=== PATIENT | female | born 1990 | race African-American/Black ===

== ENCOUNTER 2016-05-01 10:21 | Emergency (ER) | payer MEDICAID ==
[~2016-05-01] VITALS: Ht 170.2 cm; Wt 100.0 kg
[~2016-05-01 10:21] MED LIST: DICL50TA3 PO
[2016-05-01 10:23] VITALS: BP 123/81; PULSE 82; RESP 15; TEMP 98.1; O2SAT 97
--- NOTE | 2016-05-01 10:43 | PD ---
HPI Chief Complaint: Abdominal Pain Time Seen by Provider: 10:42 Travel History International Travel<30 days: No Contact w/Intl Traveler<30days: No Traveled to known affect area: No History of Present Illness HPI 25-year-old female presents to the emergency department for evaluation of lower abdominal pain and pelvic pain. The patient states that 2 days ago she stood up and stretched and felt some lower abdominal pain and thought she had pulled a muscle. States over the past 2 days she's had worsening lower abdominal pain and now pelvic pain. States that the pain is aggravated with movement, standing up straight and lying flat. Denies any alleviating factors. She states that this morning when she woke up about 4 hours ago she had a fever of 102.5F, she took some Tylenol for her fever. States that she has had nausea but no vomiting. Denies any diarrhea, constipation, vaginal discharge, burning with urination, painful urination, hematuria. Denies , last menstrual period was 04/09/16 and she has the Mirena IUD. Prior abdominal surgeries include appendectomy and cholecystectomy. Patient is sexually active with only one partner, denies any history of STI's. No other complaints. PFSH Past Medical History Anxiety: Yes Depression: Yes Cancer: No Cardiovascular Problems: No Diabetes: No Diminished Hearing: No Endocrine: No Gastrointestinal Disorders: Yes GERD: Yes Genitourinary: No Headaches: Yes Hypertension: No Immune Disorder: No Implanted Vascular Access Dvce: No Musculoskeletal: No Psychiatric: Yes Reproductive: Yes Immunizations Current: Yes Migraines: Yes Sickle Cell Disease: No Ulcer: Yes Influenza Vaccination: Yes ?: Not LMP: 09 APR 2016 : 4 Para: 1 Miscarriage: 2 : 1 Past Surgical History Abdominal Surgery: Yes (APPENDECTOMY) AICD: No Appendectomy: Yes Arteriovenous Shunt: No Cholecystectomy: Yes Insulin Pump: No Joint Replacement: No Pacemaker: No Other Surgery: Yes Social History Alcohol Use: Yes (OCC) Tobacco Use: No Substance Use: No Allergies-Medications (Allergen,Severity, Reaction): Coded Allergies: No Known Allergies (Unverified , 03/14/16) Reported Meds & Prescriptions Reported Meds & Active Scripts Active Zofran (Ondansetron HCl) 4 Mg Tab 4 Mg PO Q6HR PRN Keflex (Cephalexin) 500 Mg Cap 500 Mg PO Q12H 7 Days Tramadol (Tramadol HCl) 50 Mg Tab 50 Mg PO Q6H PRN Diclofenac Sodium DR (Diclofenac Sodium) 50 Mg Tabdr 50 Mg PO BID Review of Systems Except as stated in HPI: all other systems reviewed are Neg Physical Exam Narrative GENERAL: Well-nourished and well-developed female patient in moderate amount of pain. SKIN: Warm and dry. HEAD: Normocephalic and atraumatic. EYES: No injection, drainage, or hyphema noted. PERRLA. EOMI. ENT: No nasal drainage noted. Oropharynx is clear. NECK: Supple and the trachea is midline. CARDIOVASCULAR: Regular rate and rhythm. RESPIRATORY: Breath sounds are equal bilaterally with no accessory muscle use, wheezing, rhonchi, or crackles. GASTROINTESTINAL: Tenderness to palpation of suprapubic and left lower pelvic region with guarding. Abdomen is soft and nondistended. GENITOURINARY: Normal external genitalia without lesions or erythema. Vaginal vault with yellow discharge. Cervical os was closed, IUD string is visualized. No cervical motion tenderness. Uterus nontender and nonenlarged. Tenderness to palpation of bilateral adnexa. Performed in the presence of Naya RN. MUSCULOSKELETAL: No obvious deformities, swelling, cyanosis, or ecchymosis is present throughout the upper and lower extremities. Patient has full range of motion without any signs of neurovascular compromise. BACK: Negative CVA tenderness. NEUROLOGICAL: Awake, alert, and oriented. Normal speech and gait. Cranial nerves are grossly intact. Data Data Last Documented VS Vital Signs Date Time Temp Pulse Resp B/P Pulse Ox O2 Delivery O2 Flow Rate FiO2 05/01/16 15:05 87 18 107/62 98 05/01/16 10:23 98.1 Orders Complete Blood Count With Diff (05/01/16 10:40) Comprehensive Metabolic Panel (05/01/16 10:40) Gc And Chlamydia Pcr (05/01/16 10:40) Wet Prep Profile (05/01/16 10:40) Urinalysis - C+S If Indicated (05/01/16 10:40) Iv Access Insert/Monitor (05/01/16 10:40) Ecg Monitoring (05/01/16 10:40) Sodium Chloride 0.9% Flush (Ns Flush) (05/01/16 10:45) Ed Urine Pregnancytest Poc (05/01/16 10:40) Morphine Inj (Morphine Inj) (05/01/16 10:45) Ondansetron Inj (Zofran Inj) (05/01/16 10:45) Lipase (05/01/16 10:40) Urine Culture (05/01/16 10:50) Hydromorphone Pf Inj (Dilaudid Pf Inj) (05/01/16 11:45) Us Pelvis Comp W Doppler (05/01/16 11:43) Ceftriaxone Inj (Rocephin Inj) (05/01/16 12:45) Ondansetron Inj (Zofran Inj) (05/01/16 13:45) Labs Laboratory Tests Test 05/01/16 05/01/16 10:50 11:40 White Blood Count 8.6 TH/MM3 Red Blood Count 5.01 MIL/MM3 Hemoglobin 13.0 GM/DL Hematocrit 39.8 % Mean Corpuscular Volume 79.4 FL Mean Corpuscular Hemoglobin 26.0 PG Mean Corpuscular Hemoglobin 32.7 % Concent Red Cell Distribution Width 14.8 % Platelet Count 362 TH/MM3 Mean Platelet Volume 8.4 FL Neutrophils (%) (Auto) 55.9 % Lymphocytes (%) (Auto) 38.1 % Monocytes (%) (Auto) 4.6 % Eosinophils (%) (Auto) 0.9 % Basophils (%) (Auto) 0.5 % Neutrophils # (Auto) 4.8 TH/MM3 Lymphocytes # (Auto) 3.3 TH/MM3 Monocytes # (Auto) 0.4 TH/MM3 Eosinophils # (Auto) 0.1 TH/MM3 Basophils # (Auto) 0.0 TH/MM3 CBC Comment DIFF FINAL Differential Comment Urine Color YELLOW Urine Turbidity HAZY Urine pH 5.5 Urine Specific [place] 1.031 Urine Protein 30 mg/dL Urine Glucose (UA) NEG mg/dL Urine Ketones NEG mg/dL Urine Occult Blood SMALL Urine Nitrite NEG Urine Bilirubin NEG Urine Urobilinogen 2.0 MG/DL Urine Leukocyte Esterase LARGE Urine RBC 14 /hpf Urine WBC 80 /hpf Urine Squamous Epithelial 10 /hpf Cells Urine Bacteria RARE /hpf Urine Mucus MANY /lpf Microscopic Urinalysis Comment CULTURE INDICATED Sodium Level 138 MEQ/L Potassium Level 4.2 MEQ/L Chloride Level 106 MEQ/L Carbon Dioxide Level 24.7 MEQ/L Anion Gap 7 MEQ/L Blood Urea Nitrogen 9 MG/DL Creatinine 0.91 MG/DL Estimat Glomerular Filtration 91 ML/MIN Rate Random Glucose 165 MG/DL Calcium Level 9.0 MG/DL Total Bilirubin 0.3 MG/DL Aspartate Amino Transf 13 U/L (AST/SGOT) Alanine Aminotransferase 26 U/L (ALT/SGPT) Alkaline Phosphatase 77 U/L Total Protein 7.8 GM/DL Albumin 3.7 GM/DL Lipase 110 U/L Clue Cells (Wet Prep) NONE SEEN Vaginal Trichomonas (Wet Prep) NONE SEEN Vaginal Yeast (Wet Prep) NONE SEEN Chlamydia trachomatis DNA NOT DETECTED (PCR) Neisseria gonorrhoeae DNA NOT DETECTED (PCR) MDM Medical Decision Making Medical Screen Exam Complete: Yes Emergency Medical Condition: Yes Differential Diagnosis PID versus UTI versus cervicitis versus torsion versus IUD misplacement Narrative Course 25-year-old female presents to the emergency department for evaluation of lower abdominal and pelvic pain for 2 days with fever today. Patient is afebrile here in the emergency department. Vital signs are stable. She is in a moderate amount of pain. She has some significant pelvic tenderness to palpation. Pelvic examination reveals yellow discharge and bilateral adnexal tenderness. IV access is obtained, labs been drawn and sent. The patient is given morphine 4 mg IV and Zofran 4 mg IV. ED urine test is negative. CBC is unremarkable. CMP is unremarkable. Urinalysis shows 30 protein, small occult blood, large leukocyte esterase, 14 red blood cells, 80 white blood cells, rare bacteria and many mucus. Wet prep is unremarkable. GC and chlamydia is pending. Ultrasound shows small 2 cm complex cystic structure in the left ovary likely a benign physiologic finding. The patient's urinalysis is suspicious for a UTI. The patient has been monogamous with her and does not have any cervical motion tenderness and therefore I don't suspect any gonorrhea or chlamydia. If either of these results comes back positive she will be called with results. She is given Rocephin 1 mg IV for UTI. She'll be discharged with Keflex, antiemetics and pain medication. The patient is given strict return precautions for worsening of symptoms. Patient verbalizes understanding and agreement with treatment plan. I discussed the case with my attending physician Dr. Garcia who is aware of the patients history, physical examination findings, and treatment plan. Diagnosis Primary Impression: Urinary tract infection Qualified Code: N39.0 - Urinary tract infection with hematuria, site unspecified Referrals: Primary Care Physician Patient Instructions: General Instructions, Urinary Tract Infection in Women ( ED) Departure Forms: Tests/Procedures, Work Release Enter return to work date: May 04, 2016 Additional Instructions: Take medications as prescribed. Do not take Tramadol with alcohol or while driving. Follow-up with your Primary Care Physician. Return to the ED for any acute worsening of symptoms. Med/Other Pt SpecificInfo: Prescription(s) given Scripts Ondansetron (Zofran)4 Mg Tab4 Mg PO Q6HR PRN (NAUSEA OR VOMITING) #8 TAB Ref 0 Prov:Brigitte Garcia MD 05/01/16 Cephalexin (Keflex)500 Mg [id number] Mg PO Q12H 7 Days Ref 0 Prov:Brigitte Garcia MD 05/01/16 Tramadol 50 Mg Tab50 Mg PO Q6H PRN (PAIN GREATER THAN 6) #12 TAB Ref 0 Prov:Brigitte Garcia MD 05/01/16 Disposition: 01 DISCHARGE HOME Condition: Stable Beth Willson May 01, 2016 10:42
[2016-05-01] MEDS ORDERED: ONDANSETRON HCL 4 MG/2 ML VIAL IV PUSH ONE ×2 (10:45→13:45)
[2016-05-01] MEDS ORDERED: SODIUM CHLORIDE 0.9% FLUSH 5 ML FLUSH IVF PRN (10:45)
[2016-05-01] MEDS ORDERED: ONDANSETRON HCL 4 MG/2 ML VIAL IVP ONE (10:45)
[2016-05-01] MEDS ORDERED: MORPHINE SULFATE 4 MG/ML INJ IV PUSH ONE (10:45)
[2016-05-01 11:11] LABS: AUTOMATED NEUTROPHIL # 4.8 TH/MM3 (1.8-7.7); BASOPHIL % 0.5 % (0.0-2.0); EOSINOPHIL # 0.1 TH/MM3 (0-0.4); EOSINOPHIL % 0.9 % (0.0-4.0); HEMATOCRIT 39.8 % (35.0-46.0); HEMO FLAGS DIFF FINAL; LYMPH % 38.1 % (9.0-44.0); LYMPHOCYTE # 3.3 TH/MM3 (1.0-4.8); MEAN CELL VOLUME 79.4 FL (80.0-100.0); MEAN CORPUSCULAR HGB CONC 32.7 % (32.0-36.0); MONO % 4.6 % (0.0-8.0); NEUT % 55.9 % (16.0-70.0); PLATELET COUNT 362 TH/MM3 (150-450); RED BLOOD COUNT 5.01 MIL/MM3 (4.00-5.30); RED CELL DISTRIBUTION WIDTH 14.8 % (11.6-17.2); WHITE BLOOD COUNT 8.6 TH/MM3 (4.0-11.0)
[2016-05-01 11:12] LABS: BACTERIA, URINE RARE /hpf; BLOOD, URINE SMALL (NEG); COMMENT (UR) CULTURE INDICATED; CULTURE IF INDICATED CULTURE INDICATED; GLUCOSE,URINE NEG (NEG); KETONE, URINE NEG (NEG); MUCUS URINE MANY /lpf (OCC); NITRITE,URINE NEG (NEG); PH, URINE 5.5 (5.0-8.5); SQUAMOUS EPITHELIAL CELL URINE 10 /hpf (0-5); URINE COLOR YELLOW (YELLW/STRAW)
[2016-05-01 11:20] LABS: ALKALINE PHOSPHATASE 77 U/L (45-117); TOTAL BILIRUBIN ADULT 0.3 MG/DL (0.2-1.0)
[2016-05-01 11:22] LABS: ALT (GPT) 26 U/L (10-53); ANION GAP 7 MEQ/L (5-15); BICARBONATE 24.7 MEQ/L (21.0-32.0); BLOOD UREA NITROGEN 9 MG/DL (7-18); CHLORIDE 106 MEQ/L (98-107); GLOMERULAR FILTRATION RATE 91 ML/MIN (>89); SODIUM (NA) 138 MEQ/L (136-145)
[2016-05-01 11:23] LABS: AST (GOT) 13 U/L (15-37); POTASSIUM 4.2 MEQ/L (3.5-5.1)
[2016-05-01 11:45] VITALS: BP 130/75; PULSE 79; RESP 18; O2SAT 98
[2016-05-01] MEDS ORDERED: HYDROmorphone HCL PF 1 MG/ML VIAL IV PUSH ONE (11:45)
[2016-05-01] MEDS ORDERED: cefTRIAXone INJ 1,000 MG in SODIUM CHLORIDE 0.9% INJ 100 ML IV ONE (12:45)
[2016-05-01 13:36] LABS: CHLAMYDIA PCR NOT DETECTED (NOT DETECT); NEISSERIA PCR NOT DETECTED (NOT DETECT)
[2016-05-01] MEDS ORDERED: TRAM50TA PO (13:56)
[2016-05-01] MEDS ORDERED: CEPH-460 PO (13:57)
[2016-05-01] MEDS ORDERED: ZOFR4TAB PO (13:57)
--- NOTE | 2016-05-01 14:33 | RADRPT ---
EXAM DATE/TIME: 05/01/2016 12:07 [facility] COMPARISON: No previous studies available for comparison. INDICATIONS : Pelvic pain. MEDICAL HISTORY : Gastroesophageal reflux disease. SURGICAL HISTORY : Appendectomy. Cholecystectomy. ENCOUNTER: Initial ACUITY: 2 days PAIN SCORE: 9/10 LOCATION: Bilateral pelvis MEASUREMENTS: UTERUS: 10.5 x 4.3 x 7.5 cm ENDOMETRIAL STRIPE: 5 mm RIGHT OVARY: 3.8 x 1.8 x 2.3 cm LEFT OVARY: 3.9 x 1.8 x 3.5 cm FINDINGS: UTERUS: Intrauterine device present. Otherwise focally unremarkable. RIGHT OVARY: Ovary contains no mass or significant cystic lesion. LEFT OVARY: Slightly less than 2 cm hypoechoic/cystic mass which may be a physiologic finding. Ectopic should be considered and correlated with laboratory evaluation. MISCELLANEOUS: No free fluid. CONCLUSION: Small complex cystic structure in the left ovary likely a benign physiologic finding, however ectopic should also be considered in this patient with intrauterine device. No evidence of torsion or abscess Chester Pressley MD on May 01, 2016 at 14:29 Board Certified Radiologist. This report was verified electronically.
[2016-05-01 15:05] VITALS: BP 107/62
--- NOTE | 2016-05-01 16:03 | PD ---
Data Data Last Documented VS Vital Signs Date Time Temp Pulse Resp B/P Pulse Ox O2 Delivery O2 Flow Rate FiO2 05/01/16 15:05 87 18 107/62 98 05/01/16 10:23 98.1 Orders Complete Blood Count With Diff (05/01/16 10:40) Comprehensive Metabolic Panel (05/01/16 10:40) Gc And Chlamydia Pcr (05/01/16 10:40) Wet Prep Profile (05/01/16 10:40) Urinalysis - C+S If Indicated (05/01/16 10:40) Iv Access Insert/Monitor (05/01/16 10:40) Ecg Monitoring (05/01/16 10:40) Sodium Chloride 0.9% Flush (Ns Flush) (05/01/16 10:45) Ed Urine Pregnancytest Poc (05/01/16 10:40) Morphine Inj (Morphine Inj) (05/01/16 10:45) Ondansetron Inj (Zofran Inj) (05/01/16 10:45) Lipase (05/01/16 10:40) Urine Culture (05/01/16 10:50) Hydromorphone Pf Inj (Dilaudid Pf Inj) (05/01/16 11:45) Us Pelvis Comp W Doppler (05/01/16 11:43) Ceftriaxone Inj (Rocephin Inj) (05/01/16 12:45) Ondansetron Inj (Zofran Inj) (05/01/16 13:45) Labs Laboratory Tests Test 05/01/16 05/01/16 10:50 11:40 White Blood Count 8.6 TH/MM3 Red Blood Count 5.01 MIL/MM3 Hemoglobin 13.0 GM/DL Hematocrit 39.8 % Mean Corpuscular Volume 79.4 FL Mean Corpuscular Hemoglobin 26.0 PG Mean Corpuscular Hemoglobin 32.7 % Concent Red Cell Distribution Width 14.8 % Platelet Count 362 TH/MM3 Mean Platelet Volume 8.4 FL Neutrophils (%) (Auto) 55.9 % Lymphocytes (%) (Auto) 38.1 % Monocytes (%) (Auto) 4.6 % Eosinophils (%) (Auto) 0.9 % Basophils (%) (Auto) 0.5 % Neutrophils # (Auto) 4.8 TH/MM3 Lymphocytes # (Auto) 3.3 TH/MM3 Monocytes # (Auto) 0.4 TH/MM3 Eosinophils # (Auto) 0.1 TH/MM3 Basophils # (Auto) 0.0 TH/MM3 CBC Comment DIFF FINAL Differential Comment Urine Color YELLOW Urine Turbidity HAZY Urine pH 5.5 Urine Specific [place] 1.031 Urine Protein 30 mg/dL Urine Glucose (UA) NEG mg/dL Urine Ketones NEG mg/dL Urine Occult Blood SMALL Urine Nitrite NEG Urine Bilirubin NEG Urine Urobilinogen 2.0 MG/DL Urine Leukocyte Esterase LARGE Urine RBC 14 /hpf Urine WBC 80 /hpf Urine Squamous Epithelial 10 /hpf Cells Urine Bacteria RARE /hpf Urine Mucus MANY /lpf Microscopic Urinalysis Comment CULTURE INDICATED Sodium Level 138 MEQ/L Potassium Level 4.2 MEQ/L Chloride Level 106 MEQ/L Carbon Dioxide Level 24.7 MEQ/L Anion Gap 7 MEQ/L Blood Urea Nitrogen 9 MG/DL Creatinine 0.91 MG/DL Estimat Glomerular Filtration 91 ML/MIN Rate Random Glucose 165 MG/DL Calcium Level 9.0 MG/DL Total Bilirubin 0.3 MG/DL Aspartate Amino Transf 13 U/L (AST/SGOT) Alanine Aminotransferase 26 U/L (ALT/SGPT) Alkaline Phosphatase 77 U/L Total Protein 7.8 GM/DL Albumin 3.7 GM/DL Lipase 110 U/L Clue Cells (Wet Prep) NONE SEEN Vaginal Trichomonas (Wet Prep) NONE SEEN Vaginal Yeast (Wet Prep) NONE SEEN Chlamydia trachomatis DNA NOT DETECTED (PCR) Neisseria gonorrhoeae DNA NOT DETECTED (PCR) MDM Supervised Visit with GILES: Yes Narrative Course The history, exam, and medical decision-making in the associated midlevel provider note were completed with my assistance. I reviewed and agree with the findings presented. I attest that I had a [id number] encounter with the patient on the same day, and personally performed and documented my assessment and findings in the medical record. *My assessment and Findings: This is a 25-year-old female who presents to the emergency department with lower abdominal pain, fevers and vomiting. Patient has evidence of a urinary tract infection. She's had an appendectomy in the past. Pelvic ultrasound demonstrates a 2 cm cyst but no evidence of ovarian torsion or tubo-ovarian abscess. I think the patient's symptoms are due to cystitis. Pt. will be discharged with antibiotics. Diagnosis Ruled Out: Urinary tract infection Referrals: Primary Care Physician Patient Instructions: General Instructions, Urinary Tract Infection in Women ( ED) Departure Forms: Work Release, Enter return to work date: Tests/Procedures Additional Instruction: Take medications as prescribed. Do not take Tramadol with alcohol or while driving. Follow-up with your Primary Care Physician. Return to the ED for any acute worsening of symptoms. Scripts Ondansetron (Zofran)4 Mg Tab4 Mg PO Q6HR PRN (NAUSEA OR VOMITING) #8 TAB Ref 0 Prov:Brigitte Garcia MD 05/01/16 Cephalexin (Keflex)500 Mg [id number] Mg PO Q12H 7 Days Ref 0 Prov:Brigitte Garcia MD 05/01/16 Tramadol 50 Mg Tab50 Mg PO Q6H PRN (PAIN GREATER THAN 6) #12 TAB Ref 0 Prov:Brigitte Garcia MD 05/01/16 Disposition: 01 DISCHARGE HOME Condition: Stable Brigitte Garcia MD May 01, 2016 16:03
== END 2016-05-01 15:20 | disposition home or self-care (01) ==
LOC: NEPE 10:21 → NEDAMB 15:20
DX: N39.0 Urinary tract infection, site not specified (principal); B96.89 Other specified bacterial agents as the cause of diseases classified elsewhere; R31.9 Hematuria, unspecified; K21.9 Gastro-esophageal reflux disease without esophagitis
CPT/HCPCS: 76856; 80053; 81001; 83690; 84703; 85025; 87086; 87210; 87491; 87591; 93975; 96374; 96375; 96376; 99284; J0696; J1170; J2270; J2405

== ENCOUNTER 2016-05-05 17:30 | Emergency (ER) | payer MEDICAID ==
[~2016-05-05] VITALS: Ht 170.2 cm; Wt 109.0 kg
[~2016-05-05 17:30] MED LIST changes: +CEPH-460 PO; +TRAM50TA PO; +ZOFR4TAB PO
[2016-05-05 17:33] VITALS: BP 150/83; PULSE 79; RESP 12; TEMP 97.6; O2SAT 100
[2016-05-06] MEDS ORDERED: IBUP-232 PO (04:26)
== END 2016-05-05 20:37 | disposition left against medical advice (07) ==
LOC: NED 17:30
DX: R10.30 Lower abdominal pain, unspecified (principal)
CPT/HCPCS: 99281

== ENCOUNTER 2016-05-05 21:17 | Emergency (ER) | payer MEDICAID ==
[~2016-05-05] VITALS: Ht 170.2 cm; Wt 110.0 kg
[2016-05-05 21:19] VITALS: BP 112/80; PULSE 98; RESP 20; TEMP 97.8; O2SAT 96
[2016-05-06 01:34] LABS: AUTOMATED NEUTROPHIL # 5.2 TH/MM3 (1.8-7.7); BASOPHIL % 0.3 % (0.0-2.0); EOSINOPHIL # 0.1 TH/MM3 (0-0.4); EOSINOPHIL % 0.9 % (0.0-4.0); HEMATOCRIT 39.7 % (35.0-46.0); HEMO FLAGS DIFF FINAL; LYMPH % 38.6 % (9.0-44.0); LYMPHOCYTE # 3.7 TH/MM3 (1.0-4.8); MEAN CELL VOLUME 79.3 FL (80.0-100.0); MEAN CORPUSCULAR HGB CONC 32.7 % (32.0-36.0); NEUT % 54.2 % (16.0-70.0); PLATELET COUNT 380 TH/MM3 (150-450); RED BLOOD COUNT 5.01 MIL/MM3 (4.00-5.30); RED CELL DISTRIBUTION WIDTH 14.9 % (11.6-17.2); WHITE BLOOD COUNT 9.6 TH/MM3 (4.0-11.0)
[2016-05-06 02:10] LABS: BLOOD, URINE NEG (NEG); COMMENT (UR) CULT NOT INDICATED; CULTURE IF INDICATED CULT NOT INDICATED; GLUCOSE,URINE NEG (NEG); HYALINE CAST, URINE 5 /lpf (RARE); KETONE, URINE NEG (NEG); MUCUS URINE MANY /lpf (OCC); NITRITE,URINE NEG (NEG); PH, URINE 5.5 (5.0-8.5); SQUAMOUS EPITHELIAL CELL URINE 17 /hpf (0-5); URINE COLOR YELLOW (YELLW/STRAW)
[2016-05-06 02:12] LABS: ALT (GPT) 26 U/L (10-53); ANION GAP 7 MEQ/L (5-15); AST (GOT) 13 U/L (15-37); BICARBONATE 26.5 MEQ/L (21.0-32.0); BLOOD UREA NITROGEN 9 MG/DL (7-18); CHLORIDE 106 MEQ/L (98-107); GLOMERULAR FILTRATION RATE 101 ML/MIN (>89); SODIUM (NA) 139 MEQ/L (136-145)
[2016-05-06 02:16] LABS: ALKALINE PHOSPHATASE 78 U/L (45-117); BETA HCG QUANT LESS THAN 1 MIU/ML (0-5); TOTAL BILIRUBIN ADULT 0.4 MG/DL (0.2-1.0)
[2016-05-06] MEDS ORDERED: ONDANSETRON HCL 4 MG/2 ML VIAL IV PUSH ONE (02:30)
[2016-05-06] MEDS ORDERED: KETOROLAC TROMETHAMINE 30 MG/ML (IVP) VIAL IV PUSH ONE (02:30)
--- NOTE | 2016-05-06 03:21 | RADRPT ---
EXAM DATE/TIME: 05/06/2016 03:05 [facility] COMPARISON: No previous studies available for comparison. INDICATIONS : Lower abdominal pain that radiates to right flank ORAL CONTRAST: No oral contrast ingested. RADIATION DOSE: 13.32 CTDIvol (mGy) MEDICAL HISTORY : None SURGICAL HISTORY : Cholecystectomy. Appendectomy. ENCOUNTER: Initial ACUITY: 1 day PAIN SCALE: 9/10 LOCATION: Right flank TECHNIQUE: Volumetric scanning of the abdomen and pelvis was performed. Using automated exposure control and ad justment of the mA and/or kV according to patient size, radiation dose was kept as low as reasonably achievable to obtain optimal diagnostic quality images. FINDINGS: LOWER LUNGS: The visualized lower lungs are clear. LIVER: Homogeneous density without lesion. There is no dilation of the biliary tree. Cholecystectomy clips. SPLEEN: Normal size without lesion. PANCREAS: Within normal limits. KIDNEYS: Normal in size and shape. There is no mass, stone, or hydronephrosis. ADRENAL GLANDS: Within normal limits. VASCULAR: There is no aortic aneurysm. BOWEL/MESENTERY: The stomach, small bowel, and colon demonstrate no acute abnormality. There is no free intraperitone al air or fluid. Surgical clips from previous appendectomy. ABDOMINAL WALL: Within normal limits. RETROPERITONEUM: There is no lymphadenopathy. BLADDER: No wall thickening or mass. REPRODUCTIVE: Within normal limits. IUD. INGUINAL: There is no lymphadenopathy or hernia. MUSCULOSKELETAL: Within normal limits for patient age. CONCLUSION: 1. No acute inflammatory process. 2. No renal calculi or hydronephrosis. 3. IUD. Andrea Segura MD on May 06, 2016 at 3:18 Board Certified Radiologist. This report was verified electronically.
--- NOTE | 2016-05-06 03:25 | PD ---
HPI Chief Complaint: Abdominal Pain Time Seen by Provider: 02:21 Travel History International Travel<30 days: No Contact w/Intl Traveler<30days: No Traveled to known affect area: No History of Present Illness HPI 25yo F with PSH of appendectomy, cholecystectomy presents to the ED with c/o persistent lower abdominal pain and dysuria for 1 week. States pain is located in suprapubic region and radiates to right flank. +Chills. +Nausea. Denies any fever, chest pain, sob, vaginal discharge or bleeding, weakness or numbness. Pt was seen on 05/04/16 and discharged with keflex, tramadol, zofran and impression of UTI. Urine culture showed 50,000-100,000 mixed gram positive raza probably contamination. PFSH Past Medical History Anxiety: Yes Depression: Yes Cancer: No Cardiovascular Problems: No Diabetes: No Diminished Hearing: No Endocrine: No Gastrointestinal Disorders: Yes GERD: Yes Genitourinary: No Headaches: Yes Hypertension: No Immune Disorder: No Implanted Vascular Access Dvce: No Musculoskeletal: No Psychiatric: Yes Reproductive: Yes Immunizations Current: Yes Migraines: Yes Sickle Cell Disease: No Ulcer: Yes ?: Not LMP: 04/09/16 : 4 Para: 1 Miscarriage: 2 : 1 Past Surgical History Abdominal Surgery: Yes (APPENDECTOMY) AICD: No Appendectomy: Yes Arteriovenous Shunt: No Cholecystectomy: Yes Insulin Pump: No Joint Replacement: No Pacemaker: No Other Surgery: Yes Social History Alcohol Use: Yes (OCC) Tobacco Use: No Substance Use: No Allergies-Medications (Allergen,Severity, Reaction): Coded Allergies: No Known Allergies (Unverified , 05/05/16) Reported Meds & Prescriptions Reported Meds & Active Scripts Active Zofran (Ondansetron HCl) 4 Mg Tab 4 Mg PO Q6HR PRN Keflex (Cephalexin) 500 Mg Cap 500 Mg PO Q12H 7 Days Tramadol (Tramadol HCl) 50 Mg Tab 50 Mg PO Q6H PRN Diclofenac Sodium DR (Diclofenac Sodium) 50 Mg Tabdr 50 Mg PO BID Review of Systems Except as stated in HPI: all other systems reviewed are Neg Physical Exam Narrative GENERAL: 25yo F in mild distress. SKIN: Warm and dry. HEAD: Atraumatic. Normocephalic. EYES: Pupils equal and round. No scleral icterus. No injection or drainage. ENT: No nasal bleeding or discharge. Mucous membranes pink and moist. NECK: Trachea midline. No JVD. CARDIOVASCULAR: Regular rate and rhythm. No murmur appreciated. RESPIRATORY: No accessory muscle use. Clear to auscultation. Breath sounds equal bilaterally. GASTROINTESTINAL: Abdomen soft, mild suprapubic ttp. No rebound tenderness or guarding. BACK: +CVA tenderness right. MUSCULOSKELETAL: No obvious deformities. No clubbing. No cyanosis. No edema. NEUROLOGICAL: Awake and alert. No obvious cranial nerve deficits. Motor grossly within normal limits. Normal speech. PSYCHIATRIC: Appropriate mood and affect; insight and judgment normal. Data Data Last Documented VS Vital Signs Date Time Temp Pulse Resp B/P Pulse Ox O2 Delivery O2 Flow Rate FiO2 05/05/16 21:19 97.8 98 20 112/80 96 Room Air Orders Complete Blood Count With Diff (05/06/16 00:56) Comprehensive Metabolic Panel (05/06/16 00:56) Urinalysis - C+S If Indicated (05/06/16 00:56) Lipase (05/06/16 00:56) Beta Hcg (Quant/Titer) (05/06/16 00:56) Ct Abd/Pel W/O Iv Contrast (05/06/16 ) Ondansetron Inj (Zofran Inj) (05/06/16 02:30) Ketorolac Inj (Toradol Inj) (05/06/16 02:30) Morphine Inj (Morphine Inj) (05/06/16 03:30) Labs Laboratory Tests Test 05/06/16 05/06/16 01:05 01:07 White Blood Count 9.6 TH/MM3 Red Blood Count 5.01 MIL/MM3 Hemoglobin 13.0 GM/DL Hematocrit 39.7 % Mean Corpuscular Volume 79.3 FL Mean Corpuscular Hemoglobin 26.0 PG Mean Corpuscular Hemoglobin 32.7 % Concent Red Cell Distribution Width 14.9 % Platelet Count 380 TH/MM3 Mean Platelet Volume 8.3 FL Neutrophils (%) (Auto) 54.2 % Lymphocytes (%) (Auto) 38.6 % Monocytes (%) (Auto) 6.0 % Eosinophils (%) (Auto) 0.9 % Basophils (%) (Auto) 0.3 % Neutrophils # (Auto) 5.2 TH/MM3 Lymphocytes # (Auto) 3.7 TH/MM3 Monocytes # (Auto) 0.6 TH/MM3 Eosinophils # (Auto) 0.1 TH/MM3 Basophils # (Auto) 0.0 TH/MM3 CBC Comment DIFF FINAL Differential Comment Sodium Level 139 MEQ/L Potassium Level 4.0 MEQ/L Chloride Level 106 MEQ/L Carbon Dioxide Level 26.5 MEQ/L Anion Gap 7 MEQ/L Blood Urea Nitrogen 9 MG/DL Creatinine 0.83 MG/DL Estimat Glomerular Filtration 101 ML/MIN Rate Random Glucose 110 MG/DL Calcium Level 9.4 MG/DL Total Bilirubin 0.4 MG/DL Aspartate Amino Transf 13 U/L (AST/SGOT) Alanine Aminotransferase 26 U/L (ALT/SGPT) Alkaline Phosphatase 78 U/L Total Protein 8.1 GM/DL Albumin 3.9 GM/DL Lipase 128 U/L Human Chorionic Gonadotropin, LESS THAN 1 Quant MIU/ML Urine Color YELLOW Urine Turbidity HAZY Urine pH 5.5 Urine Specific [place] 1.032 Urine Protein 30 mg/dL Urine Glucose (UA) NEG mg/dL Urine Ketones NEG mg/dL Urine Occult Blood NEG Urine Nitrite NEG Urine Bilirubin NEG Urine Urobilinogen LESS THAN 2.0 MG/DL Urine Leukocyte Esterase LARGE Urine RBC 4 /hpf Urine WBC 8 /hpf Urine Squamous Epithelial 17 /hpf Cells Urine Hyaline Casts 5 /lpf Urine Mucus MANY /lpf Microscopic Urinalysis Comment CULT NOT INDICATED MDM Medical Decision Making Medical Screen Exam Complete: Yes Emergency Medical Condition: Yes Interpretation(s) Laboratory Tests Test 05/06/16 05/06/16 01:05 01:07 White Blood Count 9.6 TH/MM3 (4.0-11.0) Red Blood Count 5.01 MIL/MM3 (4.00-5.30) Hemoglobin 13.0 GM/DL (11.6-15.3) Hematocrit 39.7 % (35.0-46.0) Mean Corpuscular Volume 79.3 FL (80.0-100.0) Mean Corpuscular Hemoglobin 26.0 PG (27.0-34.0) Mean Corpuscular Hemoglobin 32.7 % Concent (32.0-36.0) Red Cell Distribution Width 14.9 % (11.6-17.2) Platelet Count 380 TH/MM3 (150-450) Mean Platelet Volume 8.3 FL (7.0-11.0) Neutrophils (%) (Auto) 54.2 % (16.0-70.0) Lymphocytes (%) (Auto) 38.6 % (9.0-44.0) Monocytes (%) (Auto) 6.0 % (0.0-8.0) Eosinophils (%) (Auto) 0.9 % (0.0-4.0) Basophils (%) (Auto) 0.3 % (0.0-2.0) Neutrophils # (Auto) 5.2 TH/MM3 (1.8-7.7) Lymphocytes # (Auto) 3.7 TH/MM3 (1.0-4.8) Monocytes # (Auto) 0.6 TH/MM3 (0-0.9) Eosinophils # (Auto) 0.1 TH/MM3 (0-0.4) Basophils # (Auto) 0.0 TH/MM3 (0-0.2) CBC Comment DIFF FINAL Differential Comment Sodium Level 139 MEQ/L (136-145) Potassium Level 4.0 MEQ/L (3.5-5.1) Chloride Level 106 MEQ/L (98-107) Carbon Dioxide Level 26.5 MEQ/L (21.0-32.0) Anion Gap 7 MEQ/L (5-15) Blood Urea Nitrogen 9 MG/DL (7-18) Creatinine 0.83 MG/DL (0.50-1.00) Estimat Glomerular Filtration 101 ML/MIN Rate (>89) Random Glucose 110 MG/DL (74-106) Calcium Level 9.4 MG/DL (8.5-10.1) Total Bilirubin 0.4 MG/DL (0.2-1.0) Aspartate Amino Transf 13 U/L (15-37) (AST/SGOT) Alanine Aminotransferase 26 U/L (10-53) (ALT/SGPT) Alkaline Phosphatase 78 U/L (45-117) Total Protein 8.1 GM/DL (6.4-8.2) Albumin 3.9 GM/DL (3.4-5.0) Lipase 128 U/L (73-393) Human Chorionic Gonadotropin, LESS THAN 1 Quant MIU/ML (0-5) Urine Color YELLOW (YELLW/STRAW) Urine Turbidity HAZY (CLEAR) Urine pH 5.5 (5.0-8.5) Urine Specific [place] 1.032 (1.002-1.035) Urine Protein 30 mg/dL (NEG-TRACE) Urine Glucose (UA) NEG mg/dL (NEG) Urine Ketones NEG mg/dL (NEG) Urine Occult Blood NEG (NEG) Urine Nitrite NEG (NEG) Urine Bilirubin NEG (NEG) Urine Urobilinogen LESS THAN 2.0 MG/DL (LESS THAN 2.0) Urine Leukocyte Esterase LARGE (NEG) Urine RBC 4 /hpf (0-3) Urine WBC 8 /hpf (0-5) Urine Squamous Epithelial 17 /hpf (0-5) Cells Urine Hyaline Casts 5 /lpf (RARE) Urine Mucus MANY /lpf (OCC) Microscopic Urinalysis Comment CULT NOT INDICATED Last Impressions Abdomen/Pelvis CT 05/06/16 0000 Signed Impressions: Service Date/Time: Friday, May 06, 2016 03:05 - CONCLUSION: 1. No acute inflammatory process. 2. No renal calculi or hydronephrosis. 3. IUD. Andrea Segura MD Differential Diagnosis Nephrolithiasis vs. pyelonephritis vs. cystitis Narrative Course 25yo F with urinary complaints and right flank pain. Labs reviewed, no leukocytosis. Normal creatinine. UA showed large leukocyte. Squamous is 17 so it is contamination. Pt given toradol, zofran and morphine with improvement of pain. CTa/p showed no acute inflammatory process. No renal calculi or hydronephrosis. Return precautions given. Diagnosis Primary Impression: Abdominal pain Qualified Code: R10.30 - Lower abdominal pain Patient Instructions: General Instructions Departure Forms: Tests/Procedures Additional Instructions: Please follow up with your PMD in 3-7 days. Return to the ED if symptoms worsen. Med/Other Pt SpecificInfo: Prescription(s) given Scripts Ibuprofen 600 Mg Pau447 Mg PO Q8HR PRN (PAIN) #20 TAB Ref 0 Prov:Ruth Robertson DO 05/06/16 Disposition: 01 DISCHARGE HOME Condition: Stable Ruth Robertson May 06, 2016 03:25
[2016-05-06] MEDS ORDERED: MORPHINE SULFATE 4 MG/ML INJ IV PUSH ONE (03:30)
[2016-05-06] MEDS ORDERED: IBUP-232 PO (04:26)
== END 2016-05-06 04:50 | disposition home or self-care (01) ==
LOC: NEPC 21:17
DX: R10.30 Lower abdominal pain, unspecified (principal); R30.0 Dysuria
CPT/HCPCS: 74176; 80053; 81001; 83690; 84702; 85025; 96374; 96375; 99284; J1885; J2270; J2405

== ENCOUNTER 2016-05-10 17:16 | Emergency (ER) | payer MEDICAID ==
[~2016-05-10] VITALS: Ht 170.2 cm; Wt 110.0 kg
[~2016-05-10 17:16] MED LIST changes: +IBUP-232 PO
[2016-05-10] MEDS ORDERED: KETOROLAC TROMETHAMINE 30 MG/ML (IVP) VIAL IVP ONE (18:00)
[2016-05-10] MEDS ORDERED: SODIUM CHLORIDE 0.9% FLUSH 5 ML FLUSH IVF PRN (18:00)
--- NOTE | 2016-05-10 18:11 | PD ---
HPI Chief Complaint: Abdominal Pain Time Seen by Provider: 17:30 Travel History International Travel<30 days: No Contact w/Intl Traveler<30days: No Traveled to known affect area: No History of Present Illness HPI 25-year-old female came to the emergency room with history of abdominal pain. It is to her right lower quadrant and says that this the third time she is coming in for this pain. It has been going on for more than 10 days. Patient is crying and she has her legs flexed and says she cannot straighten it for me to examine since it hurts. Vital signs are stable. I looked at her past visit and she had a CAT scan done 4 days ago which was within normal limit and a pelvic ultrasound done 10 days ago which showed a small left ovarian cyst. Her urine was negative on the sixth. [facility] Past Medical History Narrative Medical List of her past medical history as reviewed from the nursing note. Anxiety: Yes Depression: Yes Cancer: No Cardiovascular Problems: No Diabetes: No Diminished Hearing: No Endocrine: No Gastrointestinal Disorders: Yes GERD: Yes Genitourinary: No Headaches: Yes Hypertension: No Immune Disorder: No Implanted Vascular Access Dvce: No Musculoskeletal: No Psychiatric: Yes Reproductive: Yes Immunizations Current: Yes Migraines: Yes Sickle Cell Disease: No Ulcer: Yes Tetanus Vaccination: < 5 Years Influenza Vaccination: Yes ?: Not : 4 Para: 1 Miscarriage: 2 : 1 Past Surgical History Abdominal Surgery: Yes (APPENDECTOMY) AICD: No Appendectomy: Yes Arteriovenous Shunt: No Cholecystectomy: Yes Insulin Pump: No Joint Replacement: No Pacemaker: No Other Surgery: Yes Social History Alcohol Use: Yes (OCC) Tobacco Use: No Substance Use: No Allergies-Medications (Allergen,Severity, Reaction): Coded Allergies: No Known Allergies (Unverified , 05/10/16) Comments No known drug allergies. Reported Meds & Prescriptions Reported Meds & Active Scripts Active Ibuprofen 600 Mg Tab 600 Mg PO Q8HR PRN Tramadol (Tramadol HCl) 50 Mg Tab 50 Mg PO Q6H PRN Narrative Medication List of her home medications reviewed from the nursing note. Review of Systems Except as stated in HPI: all other systems reviewed are Neg Physical Exam Narrative GENERAL: Awake, alert, anxious, moderate distress, obese SKIN: Warm and dry. HEAD: Atraumatic. Normocephalic. EYES: Pupils equal and round. No scleral icterus. No injection or drainage. ENT: No nasal bleeding or discharge. Mucous membranes pink and moist. NECK: Trachea midline. No JVD. CARDIOVASCULAR: Regular rate and rhythm. No murmur appreciated. RESPIRATORY: No accessory muscle use. Clear to auscultation. Breath sounds equal bilaterally. GASTROINTESTINAL: Abdomen soft, non-tender, nondistended. Hepatic and splenic margins not palpable. MUSCULOSKELETAL: No obvious deformities. No clubbing. No cyanosis. No edema. NEUROLOGICAL: Awake and alert. No obvious cranial nerve deficits. Motor grossly within normal limits. Normal speech. PSYCHIATRIC: Appropriate mood and affect; insight and judgment normal. Data Data Last Documented VS Vital Signs Date Time Temp Pulse Resp B/P Pulse Ox O2 Delivery O2 Flow Rate FiO2 05/10/16 19:27 18 05/10/16 18:27 100 Room Air Orders Complete Blood Count With Diff (05/10/16 17:58) Comprehensive Metabolic Panel (05/10/16 17:58) Urinalysis - C+S If Indicated (05/10/16 17:58) Iv Access Insert/Monitor (05/10/16 17:58) Ecg Monitoring (05/10/16 17:58) Oximetry (05/10/16 17:58) Sodium Chloride 0.9% Flush (Ns Flush) (05/10/16 18:00) Ketorolac Inj (Toradol Inj) (05/10/16 18:00) Ed Urine Pregnancytest Poc (05/10/16 17:58) Labs Laboratory Tests Test 05/10/16 18:18 White Blood Count 7.6 TH/MM3 Red Blood Count 4.72 MIL/MM3 Hemoglobin 12.9 GM/DL Hematocrit 37.2 % Mean Corpuscular Volume 78.9 FL Mean Corpuscular Hemoglobin 27.3 PG Mean Corpuscular Hemoglobin 34.5 % Concent Red Cell Distribution Width 14.6 % Platelet Count 346 TH/MM3 Mean Platelet Volume 8.7 FL Neutrophils (%) (Auto) 48.3 % Lymphocytes (%) (Auto) 45.0 % Monocytes (%) (Auto) 5.3 % Eosinophils (%) (Auto) 0.9 % Basophils (%) (Auto) 0.5 % Neutrophils # (Auto) 3.7 TH/MM3 Lymphocytes # (Auto) 3.4 TH/MM3 Monocytes # (Auto) 0.4 TH/MM3 Eosinophils # (Auto) 0.1 TH/MM3 Basophils # (Auto) 0.0 TH/MM3 CBC Comment DIFF FINAL Differential Comment Urine Color YELLOW Urine Turbidity CLEAR Urine pH 5.0 Urine Specific [place] 1.025 Urine Protein NEG mg/dL Urine Glucose (UA) NEG mg/dL Urine Ketones NEG mg/dL Urine Occult Blood SMALL Urine Nitrite NEG Urine Bilirubin NEG Urine Urobilinogen LESS THAN 2.0 MG/DL Urine Leukocyte Esterase NEG Urine RBC 1 /hpf Urine WBC 2 /hpf Urine Squamous Epithelial 1 /hpf Cells Urine Hyaline Casts 1 /lpf Urine Mucus FEW /lpf Microscopic Urinalysis Comment CULT NOT INDICATED Sodium Level 140 MEQ/L Potassium Level 4.0 MEQ/L Chloride Level 106 MEQ/L Carbon Dioxide Level 24.6 MEQ/L Anion Gap 9 MEQ/L Blood Urea Nitrogen 9 MG/DL Creatinine 0.82 MG/DL Estimat Glomerular Filtration 103 ML/MIN Rate Random Glucose 124 MG/DL Calcium Level 8.7 MG/DL Total Bilirubin 0.3 MG/DL Aspartate Amino Transf 13 U/L (AST/SGOT) Alanine Aminotransferase 26 U/L (ALT/SGPT) Alkaline Phosphatase 80 U/L Total Protein 8.1 GM/DL Albumin 3.8 GM/DL MDM Medical Decision Making Medical Screen Exam Complete: Yes Emergency Medical Condition: Yes Medical Record Reviewed: Yes Differential Diagnosis Chronic abdominal pain Narrative Course 7:13 PM blood test results are back and they're within normal limit. I'll discharge her home. Procedures EKG Prior to Arrival: No Diagnosis Primary Impression: Chronic abdominal pain Referrals: Primary Care Physician 2 days Additional Instructions: Follow-up with your primary care in couple days. Med/Other Pt SpecificInfo: No Change to Meds Disposition: 01 DISCHARGE HOME Condition: Stable Gertrudis Woodson MD May 10, 2016 18:11
[2016-05-10 18:27] VITALS: O2SAT 100
[2016-05-10 18:33] LABS: AUTOMATED NEUTROPHIL # 3.7 TH/MM3 (1.8-7.7); BASOPHIL % 0.5 % (0.0-2.0); EOSINOPHIL # 0.1 TH/MM3 (0-0.4); EOSINOPHIL % 0.9 % (0.0-4.0); HEMATOCRIT 37.2 % (35.0-46.0); HEMO FLAGS DIFF FINAL; LYMPHOCYTE # 3.4 TH/MM3 (1.0-4.8); MEAN CELL VOLUME 78.9 FL (80.0-100.0); MEAN CORPUSCULAR HEMOGLOBIN 27.3 PG (27.0-34.0); MEAN CORPUSCULAR HGB CONC 34.5 % (32.0-36.0); MONO % 5.3 % (0.0-8.0); NEUT % 48.3 % (16.0-70.0); PLATELET COUNT 346 TH/MM3 (150-450); RED BLOOD COUNT 4.72 MIL/MM3 (4.00-5.30); RED CELL DISTRIBUTION WIDTH 14.6 % (11.6-17.2); WHITE BLOOD COUNT 7.6 TH/MM3 (4.0-11.0)
[2016-05-10 18:36] LABS: BLOOD, URINE SMALL (NEG); COMMENT (UR) CULT NOT INDICATED; CULTURE IF INDICATED CULT NOT INDICATED; GLUCOSE,URINE NEG (NEG); HYALINE CAST, URINE 1 /lpf (RARE); KETONE, URINE NEG (NEG); MUCUS URINE FEW /lpf (OCC); NITRITE,URINE NEG (NEG); SQUAMOUS EPITHELIAL CELL URINE 1 /hpf (0-5); URINE COLOR YELLOW (YELLW/STRAW)
[2016-05-10 19:07] LABS: ANION GAP 9 MEQ/L (5-15); AST (GOT) 13 U/L (15-37); BICARBONATE 24.6 MEQ/L (21.0-32.0); BLOOD UREA NITROGEN 9 MG/DL (7-18); CHLORIDE 106 MEQ/L (98-107); GLOMERULAR FILTRATION RATE 103 ML/MIN (>89); SODIUM (NA) 140 MEQ/L (136-145)
[2016-05-10 19:10] LABS: ALKALINE PHOSPHATASE 80 U/L (45-117); ALT (GPT) 26 U/L (10-53); TOTAL BILIRUBIN ADULT 0.3 MG/DL (0.2-1.0)
[2016-05-10 19:27] VITALS: RESP 18
== END 2016-05-10 19:39 | disposition home or self-care (01) ==
LOC: NEPE 17:16
DX: R10.9 Unspecified abdominal pain (principal); G89.29 Other chronic pain; N83.202 Unspecified ovarian cyst, left side; K21.9 Gastro-esophageal reflux disease without esophagitis
CPT/HCPCS: 80053; 81001; 84703; 85025; 96374; 99284; J1885

== ENCOUNTER 2016-05-22 17:54 | Emergency (ER) | payer MEDICAID ==
[~2016-05-22] VITALS: Ht 170.2 cm; Wt 110.0 kg
[~2016-05-22 17:54] MED LIST changes: -CEPH-460 PO; -DICL50TA3 PO; -ZOFR4TAB PO
[2016-05-22 17:58] VITALS: BP 153/95; PULSE 71; RESP 15; TEMP 98.1; O2SAT 99
--- NOTE | 2016-05-22 19:09 | PD ---
HPI Chief Complaint: Pain: Acute or Chronic Time Seen by Provider: 19:00 Travel History International Travel<30 days: No Contact w/Intl Traveler<30days: No Traveled to known affect area: No History of Present Illness HPI 25-year-old female presents for evaluation of right wrist pain. Symptoms started 3 weeks ago. She describes it as a sharp pain in her right wrist that occasionally radiates up to the right elbow. There are associated paresthesias in all 5 fingers of the right hand. Pain is worse with movement of the right wrist. Pain is somewhat relieved when she "pinches" her right wrist with her fingers. Symptoms have persisted which prompted evaluation. She denies any trauma. She denies any repetitive staying or typing activities. 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 She has never had this problem before. Denies any significant past medical history. No history of gouty arthritis, carpal tunnel syndrome. No other complaints. PFSH Past Medical History Anxiety: Yes Depression: Yes Cancer: No Cardiovascular Problems: No Diabetes: No Diminished Hearing: No Endocrine: No Gastrointestinal Disorders: Yes GERD: Yes Genitourinary: No Headaches: Yes Hypertension: No Immune Disorder: No Implanted Vascular Access Dvce: No Musculoskeletal: No Psychiatric: Yes Reproductive: Yes Immunizations Current: Yes Migraines: Yes Sickle Cell Disease: No Ulcer: Yes Tetanus Vaccination: < 5 Years ?: Not LMP: 05/13/16 : 4 Para: 1 Miscarriage: 2 : 1 Past Surgical History Abdominal Surgery: Yes (APPENDECTOMY) AICD: No Appendectomy: Yes Arteriovenous Shunt: No Cholecystectomy: Yes Insulin Pump: No Joint Replacement: No Pacemaker: No Other Surgery: Yes Social History Alcohol Use: Yes (OCC) Tobacco Use: No Substance Use: No Allergies-Medications (Allergen,Severity, Reaction): Coded Allergies: No Known Allergies (Unverified , 05/22/16) Reported Meds & Prescriptions Reported Meds & Active Scripts Active No Active Prescriptions or Reported Medications Review of Systems Except as stated in HPI: all other systems reviewed are Neg Physical Exam Narrative GENERAL: Well-developed well-nourished female in no acute distress SKIN: Warm and dry. No bruising or soft tissue swelling CARDIOVASCULAR: Regular rate and rhythm. No murmur appreciated. RESPIRATORY: No accessory muscle use. Clear to auscultation. Breath sounds equal bilaterally. Extremities: There is some tenderness to palpation around the medial and lateral right wrist. No obvious deformity. The patient is unable to perform the phalen's maneuver secondary to discomfort. She has pain with range of motion activities utilizing the right wrist. Distal sensation is preserved in all 5 fingers of the right hand. Capillary refill is preserved. 2+ radial pulse. No edema. Compartments of the forearm are soft. Data Data Last Documented VS Vital Signs Date Time Temp Pulse Resp B/P Pulse Ox O2 Delivery O2 Flow Rate FiO2 05/22/16 17:58 98.1 71 15 153/95 99 Orders Wrist, Complete ([id number]) (05/22/16 ) Ketorolac Inj (Toradol Inj) (05/22/16 19:15) Splint Or Brace Apply/Monitor (05/22/16 19:06) MDM Medical Decision Making Medical Screen Exam Complete: Yes Emergency Medical Condition: Yes Medical Record Reviewed: Yes Differential Diagnosis Carpal tunnel syndrome, tendinitis, sprain, inflammatory arthritis, septic arthritis, radiculopathy Narrative Course 25-year-old female 3 weeks of right wrist pain with paresthesias in all 5 fingers of the right hand. Pain is worse with movement of the right wrist. Physical examination reveals pain with range of motion activities, otherwise unremarkable with no evidence of an inflammatory arthritis. I suspected tendinitis versus carpal tunnel syndrome. Toradol injection administered. X- ray imaging reveals no acute abnormalities. The patient is being discharged with a prescription for diclofenac and a Velcro wrist splint. Diagnosis Primary Impression: Right wrist pain Additional Instructions: Take diclofenac meals. Splint. Follow up with primary care physician in one to 2 weeks. Return for any emergent medical conditions. Med/Other Pt SpecificInfo: Prescription(s) given, Orthopedic Instructions Scripts Diclofenac Sodium DR 75 Mg Tabdr75 Mg PO BID 10 Days Ref 0 Prov:America Hart MD 05/22/16 Disposition: 01 DISCHARGE HOME Condition: Stable Pito Mar May 22, 2016 19:09
[2016-05-22] MEDS ORDERED: KETOROLAC TROMETHAMINE 60 MG/2 ML (IM) VIAL IM ONE (19:15)
--- NOTE | 2016-05-22 19:52 | RADRPT ---
EXAM DATE/TIME: 05/22/2016 19:30 [facility] COMPARISON: No previous studies available for comparison. INDICATIONS : Right wrist pain for 3 weeks with no known trauma MEDICAL HISTORY : None. SURGICAL HISTORY : None. ENCOUNTER: Initial ACUITY: 3 weeks PAIN SCORE: 8/10 LOCATION: Right posterior wrist FINDINGS: No definite fractures, or dislocations are identified. No definite lytic or sclerotic lesion is seen . CONCLUSION: Unremarkable study. Colin Millan MD on May 22, 2016 at 19:50 Board Certified Radiologist. This report was verified electronically.
[2016-05-22] MEDS ORDERED: DICL75TA PO (20:19)
== END 2016-05-22 20:29 | disposition home or self-care (01) ==
LOC: NEPB 17:54
DX: M25.531 Pain in right wrist (principal); R20.8 Other disturbances of skin sensation; Z86.59 Personal history of other mental and behavioral disorders; Z87.19 Personal history of other diseases of the digestive system; Z87.42 Personal history of other diseases of the female genital tract; Z86.69 Personal history of other diseases of the nervous system and sense organs
CPT/HCPCS: 73110; 96372; 99283; J1885; L3908

== ENCOUNTER 2016-06-25 11:24 | Emergency (ER) | payer MEDICAID ==
[~2016-06-25 11:24] MED LIST changes: +DICL75TA PO; -IBUP-232 PO; -TRAM50TA PO
[2016-06-25 11:26] VITALS: BP 116/77; PULSE 80; RESP 24; TEMP 97.8; O2SAT 96
--- NOTE | 2016-06-25 12:40 | PD ---
HPI Chief Complaint: Abdominal Pain Time Seen by Provider: 12:40 Travel History International Travel<30 days: No Contact w/Intl Traveler<30days: No Traveled to known affect area: No History of Present Illness HPI 25 year-old female presents to emergency department for evaluation of epigastric abdominal pain, nausea, vomiting, diarrhea for the last 2 days. Patient states she's been having difficulty keeping anything down. States that she does not believe she is . Last menstrual cycle was every 15th. No vaginal bleeding or discharge currently. No hematochezia or hematuria. No hematemesis. Has felt febrile and chilled. Patient reports cholecystectomy and appendectomy history. No other symptoms to report. PFSH Past Medical History Anxiety: Yes Depression: Yes Cancer: No Cardiovascular Problems: No Diabetes: No Diminished Hearing: No Endocrine: No Gastrointestinal Disorders: Yes GERD: Yes Genitourinary: No Headaches: Yes Hypertension: No Immune Disorder: No Implanted Vascular Access Dvce: No Musculoskeletal: No Psychiatric: Yes Reproductive: Yes Immunizations Current: Yes Migraines: Yes Sickle Cell Disease: No Ulcer: Yes LMP: 06/10/16 : 4 Para: 1 Miscarriage: 2 : 1 Past Surgical History Abdominal Surgery: Yes (APPENDECTOMY) AICD: No Appendectomy: Yes Arteriovenous Shunt: No Cholecystectomy: Yes Insulin Pump: No Joint Replacement: No Pacemaker: No Other Surgery: Yes Social History Alcohol Use: Yes (OCC) Tobacco Use: No Substance Use: No Allergies-Medications (Allergen,Severity, Reaction): Coded Allergies: No Known Allergies (Unverified , 06/25/16) Reported Meds & Prescriptions Reported Meds & Active Scripts Active No Active Prescriptions or Reported Medications Review of Systems Except as stated in HPI: all other systems reviewed are Neg Physical Exam Narrative GENERAL: Well-nourished female patient, in no acute distress SKIN: Warm and dry. HEAD: Atraumatic. Normocephalic. EYES: Pupils equal and round. No scleral icterus. No injection or drainage. ENT: No nasal bleeding or discharge. Mucous membranes pink and moist. NECK: Trachea midline. No JVD. CARDIOVASCULAR: Regular rate and rhythm. No murmur appreciated. RESPIRATORY: No accessory muscle use. Clear to auscultation. Breath sounds equal bilaterally. GASTROINTESTINAL: Abdomen soft, nondistended. Epigastric tenderness to palpation. Hepatic and splenic margins not palpable. MUSCULOSKELETAL: No obvious deformities. No clubbing. No cyanosis. No edema. NEUROLOGICAL: Awake and alert. No obvious cranial nerve deficits. Motor grossly within normal limits. Normal speech. PSYCHIATRIC: Appropriate mood and affect; insight and judgment normal. Data Data Last Documented VS Vital Signs Date Time Temp Pulse Resp B/P Pulse Ox O2 Delivery O2 Flow Rate FiO2 06/25/16 11:26 97.8 80 24 116/77 96 Room Air Orders Complete Blood Count With Diff (06/25/16 12:37) Comprehensive Metabolic Panel (06/25/16 12:37) Lipase (06/25/16 12:37) Prothrombin Time / Inr (Pt) (06/25/16 12:37) Act Partial Throm Time (Ptt) (06/25/16 12:37) Urinalysis - C+S If Indicated (06/25/16 12:37) Ed Urine Pregnancytest Poc (06/25/16 12:37) Urine Culture (06/25/16 12:40) Gc And Chlamydia Pcr (06/25/16 13:26) Labs Laboratory Tests Test 06/25/16 06/25/16 12:40 12:42 Urine Color YELLOW Urine Turbidity HAZY Urine pH 5.5 Urine Specific [place] 1.028 Urine Protein TRACE mg/dL Urine Glucose (UA) NEG mg/dL Urine Ketones NEG mg/dL Urine Occult Blood NEG Urine Nitrite NEG Urine Bilirubin NEG Urine Urobilinogen LESS THAN 2.0 MG/DL Urine Leukocyte Esterase NEG Urine RBC LESS THAN 1 /hpf Urine WBC 2 /hpf Urine Squamous Epithelial 2 /hpf Cells Urine Amorphous Sediment RARE Urine Bacteria MANY /hpf Urine Mucus MANY /lpf Microscopic Urinalysis Comment CULTURE INDICATED Chlamydia trachomatis DNA NOT DETECTED (PCR) Neisseria gonorrhoeae DNA NOT DETECTED (PCR) White Blood Count 8.7 TH/MM3 Red Blood Count 4.97 MIL/MM3 Hemoglobin 12.9 GM/DL Hematocrit 39.6 % Mean Corpuscular Volume 79.8 FL Mean Corpuscular Hemoglobin 25.9 PG Mean Corpuscular Hemoglobin 32.5 % Concent Red Cell Distribution Width 14.4 % Platelet Count 394 TH/MM3 Mean Platelet Volume 8.0 FL Neutrophils (%) (Auto) 52.9 % Lymphocytes (%) (Auto) 40.2 % Monocytes (%) (Auto) 5.6 % Eosinophils (%) (Auto) 0.9 % Basophils (%) (Auto) 0.4 % Neutrophils # (Auto) 4.6 TH/MM3 Lymphocytes # (Auto) 3.5 TH/MM3 Monocytes # (Auto) 0.5 TH/MM3 Eosinophils # (Auto) 0.1 TH/MM3 Basophils # (Auto) 0.0 TH/MM3 CBC Comment DIFF FINAL Differential Comment Prothrombin Time 10.7 SEC Prothromb Time International 1.0 RATIO Ratio Activated Partial 26.6 SEC Thromboplast Time Sodium Level 138 MEQ/L Potassium Level 4.1 MEQ/L Chloride Level 107 MEQ/L Carbon Dioxide Level 23.9 MEQ/L Anion Gap 7 MEQ/L Blood Urea Nitrogen 8 MG/DL Creatinine 0.96 MG/DL Estimat Glomerular Filtration 86 ML/MIN Rate Random Glucose 96 MG/DL Calcium Level 8.9 MG/DL Total Bilirubin 0.4 MG/DL Aspartate Amino Transf 13 U/L (AST/SGOT) Alanine Aminotransferase 29 U/L (ALT/SGPT) Alkaline Phosphatase 75 U/L Total Protein 8.2 GM/DL Albumin 3.9 GM/DL Lipase 113 U/L [facility] Medical Decision Making Medical Screen Exam Complete: Yes Emergency Medical Condition: Yes Medical Record Reviewed: Yes Differential Diagnosis Gastroenteritis versus gastritis versus versus influenza versus electrode abnormality versus UTI Narrative Course 25 year-old female presents to the emergency department for evaluation. Workup is initiated in triage. Once a medical bed becomes available, patient will be transferred and care assumed by that provider. Patient is not in the waiting room when a medical bed becomes available. Discussed prior to her workup that this was the beginning of workup and we would not have results here in the triage area until she went back to the apical bed where she would be evaluated by a physician. She verbalizes understanding of that. Patient has left AGAINST MEDICAL ADVICE. Diagnosis Primary Impression: Abdominal pain Qualified Code: R10.13 - Epigastric pain Additional Impression: Left against medical advice Scripts No Active Prescriptions or Reported Meds Disposition: 07 AGAINST MEDICAL ADVICE Condition: Stable SamantaShawandaMelitakristi PARKS Jun 25, 2016 12:40
[2016-06-25 12:59] LABS: AUTOMATED NEUTROPHIL # 4.6 TH/MM3 (1.8-7.7); BASOPHIL % 0.4 % (0.0-2.0); EOSINOPHIL # 0.1 TH/MM3 (0-0.4); EOSINOPHIL % 0.9 % (0.0-4.0); HEMATOCRIT 39.6 % (35.0-46.0); HEMO FLAGS DIFF FINAL; LYMPH % 40.2 % (9.0-44.0); LYMPHOCYTE # 3.5 TH/MM3 (1.0-4.8); MEAN CELL VOLUME 79.8 FL (80.0-100.0); MEAN CORPUSCULAR HEMOGLOBIN 25.9 PG (27.0-34.0); MEAN CORPUSCULAR HGB CONC 32.5 % (32.0-36.0); MONO % 5.6 % (0.0-8.0); NEUT % 52.9 % (16.0-70.0); PLATELET COUNT 394 TH/MM3 (150-450); RED BLOOD COUNT 4.97 MIL/MM3 (4.00-5.30); RED CELL DISTRIBUTION WIDTH 14.4 % (11.6-17.2); WHITE BLOOD COUNT 8.7 TH/MM3 (4.0-11.0)
[2016-06-25 13:09] LABS: APTT (PATIENT) 26.6 SEC (24.3-30.1); PROTHROMBIN TIME - PATIENT 10.7 SEC (9.8-11.6)
[2016-06-25 13:18] LABS: BACTERIA, URINE MANY /hpf; BLOOD, URINE NEG (NEG); COMMENT (UR) CULTURE INDICATED; CULTURE IF INDICATED CULTURE INDICATED; GLUCOSE,URINE NEG (NEG); KETONE, URINE NEG (NEG); MUCUS URINE MANY /lpf (OCC); NITRITE,URINE NEG (NEG); PH, URINE 5.5 (5.0-8.5); SQUAMOUS EPITHELIAL CELL URINE 2 /hpf (0-5); URINE COLOR YELLOW (YELLW/STRAW)
[2016-06-25 13:18] LABS: ANION GAP 7 MEQ/L (5-15); AST (GOT) 13 U/L (15-37); BICARBONATE 23.9 MEQ/L (21.0-32.0); BLOOD UREA NITROGEN 8 MG/DL (7-18); CHLORIDE 107 MEQ/L (98-107); GLOMERULAR FILTRATION RATE 86 ML/MIN (>89); POTASSIUM 4.1 MEQ/L (3.5-5.1); SODIUM (NA) 138 MEQ/L (136-145)
[2016-06-25 13:25] LABS: ALKALINE PHOSPHATASE 75 U/L (45-117); ALT (GPT) 29 U/L (10-53); TOTAL BILIRUBIN ADULT 0.4 MG/DL (0.2-1.0)
[2016-06-25 19:31] LABS: CHLAMYDIA PCR NOT DETECTED (NOT DETECT); NEISSERIA PCR NOT DETECTED (NOT DETECT)
== END 2016-06-25 18:15 | disposition left against medical advice (07) ==
LOC: NETRI 11:24
DX: R10.13 Epigastric pain (principal)
CPT/HCPCS: 80053; 81001; 83690; 84703; 85025; 85610; 85730; 87086; 87491; 87591; 99283

== ENCOUNTER 2016-06-27 22:13 | Emergency (ER) | payer MEDICAID ==
[~2016-06-27] VITALS: Ht 170.2 cm; Wt 114.0 kg
[2016-06-27 22:15] VITALS: BP 146/79; PULSE 74; RESP 16; TEMP 97.8; O2SAT 98
[2016-06-28] MEDS ORDERED: ONDANSETRON HCL 4 MG/2 ML VIAL IV PUSH ONE (00:45)
[2016-06-28 00:52] LABS: AUTOMATED NEUTROPHIL # 4.6 TH/MM3 (1.8-7.7); BASOPHIL % 0.4 % (0.0-2.0); EOSINOPHIL # 0.1 TH/MM3 (0-0.4); EOSINOPHIL % 1.1 % (0.0-4.0); HEMATOCRIT 37.4 % (35.0-46.0); HEMO FLAGS DIFF FINAL; LYMPH % 45.9 % (9.0-44.0); LYMPHOCYTE # 4.5 TH/MM3 (1.0-4.8); MEAN CELL VOLUME 79.4 FL (80.0-100.0); MEAN CORPUSCULAR HEMOGLOBIN 26.6 PG (27.0-34.0); MEAN CORPUSCULAR HGB CONC 33.5 % (32.0-36.0); MONO % 5.8 % (0.0-8.0); NEUT % 46.8 % (16.0-70.0); PLATELET COUNT 354 TH/MM3 (150-450); RED CELL DISTRIBUTION WIDTH 14.5 % (11.6-17.2); WHITE BLOOD COUNT 9.9 TH/MM3 (4.0-11.0)
[2016-06-28] MEDS ORDERED: MORPHINE SULFATE 4 MG/ML INJ IV PUSH ONE (01:00)
[2016-06-28 01:19] LABS: BLOOD, URINE MOD (NEG); COMMENT (UR) CULT NOT INDICATED; CULTURE IF INDICATED CULT NOT INDICATED; GLUCOSE,URINE NEG (NEG); KETONE, URINE NEG (NEG); MUCUS URINE MANY /lpf (OCC); NITRITE,URINE NEG (NEG); SQUAMOUS EPITHELIAL CELL URINE 4 /hpf (0-5); URINE COLOR YELLOW (YELLW/STRAW)
[2016-06-28 01:22] LABS: ALT (GPT) 28 U/L (10-53); ANION GAP 9 MEQ/L (5-15); AST (GOT) 15 U/L (15-37); BICARBONATE 25.3 MEQ/L (21.0-32.0); BLOOD UREA NITROGEN 11 MG/DL (7-18); CHLORIDE 107 MEQ/L (98-107); GLOMERULAR FILTRATION RATE 99 ML/MIN (>89); SODIUM (NA) 141 MEQ/L (136-145)
[2016-06-28 01:25] LABS: ALKALINE PHOSPHATASE 68 U/L (45-117); TOTAL BILIRUBIN ADULT 0.4 MG/DL (0.2-1.0)
--- NOTE | 2016-06-28 01:27 | RADRPT ---
EXAM DATE/TIME: 06/28/2016 01:08 [facility] COMPARISON: No previous studies available for comparison. INDICATIONS : Medial abdominal pain radiating to left lower quadrant with nausea and vomiting. ORAL CONTRAST: No oral contrast ingested. RADIATION DOSE: 17.39 CTDIvol (mGy) MEDICAL HISTORY : Gastroesophageal reflux disease. SURGICAL HISTORY : Cholecystectomy. Appendectomy. ENCOUNTER: Initial ACUITY: 3 days PAIN SCALE: 8/10 LOCATION: medial abdomen TECHNIQUE: Volumetric scanning of the abdomen and pelvis was performed. Using automated exposure control and ad justment of the mA and/or kV according to patient size, radiation dose was kept as low as reasonably achievable to obtain optimal diagnostic quality images. FINDINGS: LOWER LUNGS: The visualized lower lungs are clear. LIVER: Homogeneous density without lesion. There is no dilation of the biliary tree. Gallbladder surgically absent. SPLEEN: Normal size without lesion. PANCREAS: Within normal limits. KIDNEYS: Normal in size and shape. There is no mass, stone, or hydronephrosis. ADRENAL GLANDS: Within normal limits. VASCULAR: There is no aortic aneurysm. BOWEL/MESENTERY: Surgical clips associated with previous appendectomy. No evidence of abnormal dilatation, wall thicke kate or focal inflammatory changes. ABDOMINAL WALL: Within normal limits. RETROPERITONEUM: There is no lymphadenopathy. BLADDER: No wall thickening or mass. REPRODUCTIVE: Intrauterine device in good position. No evidence of pelvic mass or free fluid. INGUINAL: There is no lymphadenopathy or hernia. MUSCULOSKELETAL: Within normal limits for patient age. CONCLUSION: No acute CT findings in the abdomen or pelvis. Chester Pressley MD on June 28, 2016 at 1:22 Board Certified Radiologist. This report was verified electronically.
[2016-06-28] MEDS ORDERED: PROMETHAZINE INJ 25 MG/ML VIAL IM ONE (02:00)
[2016-06-28] MEDS ORDERED: PROM25TA5 PO (02:49)
[2016-06-28] MEDS ORDERED: ZOFR4TAB3 SL (02:49)
--- NOTE | 2016-06-28 02:49 | PD ---
HPI Chief Complaint: GI Complaint Time Seen by Provider: 00:58 Travel History International Travel<30 days: No Contact w/Intl Traveler<30days: No Traveled to known affect area: No History of Present Illness HPI 25-year-old female presents with abdominal pain and nonbloody emesis. She states she has been having her symptoms over the past couple of days. She states she feels worse when she moves around. She denies other modifying factors. She denies other concurrent complaints. She denies specific sick contacts. She denies migration of the pain. Location is central. Quality is sharp. Severity is moderate. PFSH Past Medical History Anxiety: Yes Depression: Yes Cancer: No Cardiovascular Problems: No Diabetes: No Diminished Hearing: No Endocrine: No Gastrointestinal Disorders: Yes GERD: Yes Genitourinary: No Headaches: Yes Hypertension: No Immune Disorder: No Implanted Vascular Access Dvce: No Musculoskeletal: No Psychiatric: Yes Reproductive: Yes Immunizations Current: Yes Migraines: Yes Sickle Cell Disease: No Ulcer: Yes ?: Not LMP: CURRENTLY : 4 Para: 1 Miscarriage: 2 : 1 Past Surgical History Abdominal Surgery: Yes (APPENDECTOMY) AICD: No Appendectomy: Yes Arteriovenous Shunt: No Cholecystectomy: Yes Insulin Pump: No Joint Replacement: No Pacemaker: No Other Surgery: Yes Social History Alcohol Use: Yes (OCC) Tobacco Use: No Substance Use: No Allergies-Medications (Allergen,Severity, Reaction): Coded Allergies: Toradol (Verified Allergy, Unknown, 06/28/16) Reported Meds & Prescriptions Reported Meds & Active Scripts Active Zofran Odt (Ondansetron Odt) 4 Mg Tab 4 Mg SL Q6HR PRN Phenergan (Promethazine HCl) 25 Mg Tab 25 Mg PO Q6H PRN Review of Systems Except as stated in HPI: all other systems reviewed are Neg Physical Exam Narrative GENERAL: Well-nourished, well-developed patient. SKIN: Warm and dry. HEAD: Normocephalic and atraumatic. EYES: No injection or drainage. ENT: No nasal drainage noted. NECK: Supple, trachea midline. CARDIOVASCULAR: Regular rate and rhythm RESPIRATORY: Breath sounds equal bilaterally. No accessory muscle use. GASTROINTESTINAL: Abdomen soft, mild tenderness diffusely, nondistended. EXTREMITIES: No edema. NEUROLOGICAL: Awake and alert. Motor and sensory grossly within normal limits. Normal speech. Data Data Last Documented VS Vital Signs Date Time Temp Pulse Resp B/P Pulse Ox O2 Delivery O2 Flow Rate FiO2 06/27/16 22:15 97.8 74 16 146/79 98 Orders Urinalysis - C+S If Indicated (06/28/16 00:05) Ed Urine Pregnancytest Poc (06/28/16 00:05) Complete Blood Count With Diff (06/28/16 00:36) Comprehensive Metabolic Panel (06/28/16 00:36) Lipase (06/28/16 00:36) Iv Access Insert/Monitor (06/28/16 00:36) Ondansetron Inj (Zofran Inj) (06/28/16 00:45) Ct Abd/Pel W/O Iv Contrast (06/28/16 ) Morphine Inj (Morphine Inj) (06/28/16 01:00) Oral Rehydration (06/28/16 01:30) Promethazine Inj (Phenergan Inj) (06/28/16 02:00) Labs Laboratory Tests Test 06/28/16 06/28/16 00:25 00:40 Urine Color YELLOW Urine Turbidity HAZY Urine pH 6.0 Urine Specific [place] 1.030 Urine Protein TRACE mg/dL Urine Glucose (UA) NEG mg/dL Urine Ketones NEG mg/dL Urine Occult Blood MOD Urine Nitrite NEG Urine Bilirubin NEG Urine Urobilinogen LESS THAN 2.0 MG/DL Urine Leukocyte Esterase TRACE Urine RBC 1 /hpf Urine WBC 4 /hpf Urine Squamous Epithelial 4 /hpf Cells Urine Mucus MANY /lpf Microscopic Urinalysis Comment CULT NOT INDICATED White Blood Count 9.9 TH/MM3 Red Blood Count 4.70 MIL/MM3 Hemoglobin 12.5 GM/DL Hematocrit 37.4 % Mean Corpuscular Volume 79.4 FL Mean Corpuscular Hemoglobin 26.6 PG Mean Corpuscular Hemoglobin 33.5 % Concent Red Cell Distribution Width 14.5 % Platelet Count 354 TH/MM3 Mean Platelet Volume 8.1 FL Neutrophils (%) (Auto) 46.8 % Lymphocytes (%) (Auto) 45.9 % Monocytes (%) (Auto) 5.8 % Eosinophils (%) (Auto) 1.1 % Basophils (%) (Auto) 0.4 % Neutrophils # (Auto) 4.6 TH/MM3 Lymphocytes # (Auto) 4.5 TH/MM3 Monocytes # (Auto) 0.6 TH/MM3 Eosinophils # (Auto) 0.1 TH/MM3 Basophils # (Auto) 0.0 TH/MM3 CBC Comment DIFF FINAL Differential Comment Sodium Level 141 MEQ/L Potassium Level 4.0 MEQ/L Chloride Level 107 MEQ/L Carbon Dioxide Level 25.3 MEQ/L Anion Gap 9 MEQ/L Blood Urea Nitrogen 11 MG/DL Creatinine 0.85 MG/DL Estimat Glomerular Filtration 99 ML/MIN Rate Random Glucose 101 MG/DL Calcium Level 8.9 MG/DL Total Bilirubin 0.4 MG/DL Aspartate Amino Transf 15 U/L (AST/SGOT) Alanine Aminotransferase 28 U/L (ALT/SGPT) Alkaline Phosphatase 68 U/L Total Protein 7.8 GM/DL Albumin 4.0 GM/DL Lipase 145 U/L [facility] Medical Decision Making Medical Screen Exam Complete: Yes Emergency Medical Condition: Yes Medical Record Reviewed: Yes (past history confirmed) Interpretation(s) CBC & BMP Diagram 06/28/16 00:40 CT scan without emergent process Differential Diagnosis Gastroenteritis, colitis, diverticulitis, stone Narrative Course Will check blood work, urinalysis, CAT scan and reevaluate after morphine and Zofran Patient with emesis will dose with Phenergan and reevaluate No further emesis, Patient denies any new complaints and states that they are feeling better. Patient happy with care, all questions answered. Patient knows that follow up is incumbent on them and to return to the emergency room immediately if new or worsening symptoms develop. Patient given strict return precautions, vitals reviewed and are normal, agrees to further workup as an outpatient. Diagnosis Primary Impression: Abdominal pain Qualified Code: R10.9 - Abdominal pain, unspecified location Additional Impression: Vomiting Qualified Code: R11.2 - Non-intractable vomiting with nausea, unspecified vomiting type Patient Instructions: General Instructions Additional Instructions: Return as needed, Zofran and Phenergan as needed, Tylenol as needed for pain Med/Other Pt SpecificInfo: Prescription(s) given Scripts Ondansetron Odt (Zofran Odt)4 Mg Tab4 Mg SL Q6HR PRN (Nausea/Vomiting) #10 TAB Prov:Ping Lopez MD 06/28/16 Promethazine (Phenergan)25 Mg Tab25 Mg PO Q6H PRN (NAUSEA OR VOMITING) #15 TAB Prov:Ping Lopez MD 06/28/16 Disposition: 01 DISCHARGE HOME Condition: Stable Ping Lopez MD Jun 28, 2016 02:49
== END 2016-06-28 03:01 | disposition home or self-care (01) ==
LOC: NEPE 22:13
DX: R10.84 Generalized abdominal pain (principal); R11.2 Nausea with vomiting, unspecified
CPT/HCPCS: 74176; 80053; 81001; 83690; 84703; 85025; 96372; 96374; 96375; 99284; J2270; J2405; J2550

== ENCOUNTER 2016-07-27 19:54 | Emergency (ER) | payer OTHER, MEDICAID ==
[~2016-07-27] VITALS: Ht 170.2 cm; Wt 104.0 kg
[2016-07-27 19:57] VITALS: BP 132/83; PULSE 87; RESP 20; TEMP 98; O2SAT 97
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
[2016-07-27] MEDS ORDERED: IBUP800T23 PO (22:08)
[2016-07-27] MEDS ORDERED: BACL10TA PO (22:08)
[2016-07-27] MEDS ORDERED: IBUPROFEN 800 MG TAB PO ONE (22:15)
[2016-07-27] MEDS ORDERED: ORPHENADRINE INJ 60 MG/2 ML AMP IM ONE (22:15)
== END 2016-07-27 22:56 | disposition home or self-care (01) ==
LOC: NETRI 19:54
DX: S16.1XXA Strain of muscle, fascia and tendon at neck level, initial encounter (principal); S20.219A Contusion of unspecified front wall of thorax, initial encounter; S46.911A Strain of unspecified muscle, fascia and tendon at shoulder and upper arm level, right arm, initial encounter; V49.49XA Driver injured in collision with other motor vehicles in traffic accident, initial encounter; Y92.410 Unspecified street and highway as the place of occurrence of the external cause
CPT/HCPCS: 71020; 72040; 73030; 84703; 99283

== ENCOUNTER 2016-08-25 15:57 | Emergency (ER) | payer MEDICAID, OTHER ==
[~2016-08-25] VITALS: Ht 170.2 cm; Wt 109.0 kg
[~2016-08-25 15:57] MED LIST changes: +BACL10TA PO; -DICL75TA PO; +IBUP800T23 PO
[2016-08-25 15:59] VITALS: BP 125/73; PULSE 72; RESP 14; TEMP 98.1; O2SAT 99
--- NOTE | 2016-08-25 16:17 | PD ---
Physical Exam Time Seen by Provider: 16:13 Narrative 25 y/o female who reports a hx of bartholin glan cyst presents with 2 weeks of pain associated with this. Vital signs reviewed. Seen at triage desk. Awaiting bed placement. Data Data Last Documented VS Vital Signs Date Time Temp Pulse Resp B/P Pulse Ox O2 Delivery O2 Flow Rate FiO2 08/25/16 15:59 98.1 72 14 125/73 99 MDM Medical Record Reviewed: Yes Supervised Visit with GILES: Pito Blackman August 25, 2016 16:16
[2016-08-25] MEDS ORDERED: LIDOCAINE 1%/EPINEPHrine 1:100,000 SOLN 20 ML VIAL INFIL ONE (17:00)
--- NOTE | 2016-08-25 17:35 | PD ---
HPI Chief Complaint: Abdominal Pain Time Seen by Provider: 16:50 Travel History International Travel<30 days: No Contact w/Intl Traveler<30days: No Traveled to known affect area: No History of Present Illness HPI Patient is a 25-year-old female presenting to emergency for evaluation of a Bartholin's cyst. Patient states she gets them twice yearly, this one has been bothering her for the last 2 weeks. She reports that her primary care provider gave her Bactrim but did not drain it. Not been evaluated by a quality reviewer for this issue. She states she's been trying to get into one but has not been able to yet. Patient reports the pain is a 5 in attendance as it is sore. She denies any other complaints, vaginal discharge, pelvic pain PFSH Past Medical History Anxiety: Yes Depression: Yes Cancer: No Cardiovascular Problems: No Diabetes: No Diminished Hearing: No Endocrine: No Gastrointestinal Disorders: Yes GERD: Yes Genitourinary: No Headaches: Yes Hypertension: No Immune Disorder: No Implanted Vascular Access Dvce: No Musculoskeletal: No Psychiatric: Yes Reproductive: Yes Immunizations Current: Yes Migraines: Yes Sickle Cell Disease: No Ulcer: Yes ?: Not : 4 Para: 1 Miscarriage: 2 : 1 Past Surgical History Abdominal Surgery: Yes (APPENDECTOMY) AICD: No Appendectomy: Yes Arteriovenous Shunt: No Cholecystectomy: Yes Insulin Pump: No Joint Replacement: No Pacemaker: No Other Surgery: Yes Social History Alcohol Use: Yes (OCC) Tobacco Use: No Substance Use: No Allergies-Medications (Allergen,Severity, Reaction): Coded Allergies: Toradol (Verified Allergy, Unknown, 08/25/16) Reported Meds & Prescriptions Reported Meds & Active Scripts Active Review of Systems Except as stated in HPI: all other systems reviewed are Neg Musculoskeletal: Positive: Pain Skin: Positive Lumps Physical Exam Narrative GENERAL: Well-nourished, well-developed patient. SKIN: Focused skin assessment warm/dry. HEAD: Normocephalic. EYES: No scleral icterus. No injection or drainage. NECK: Supple, trachea midline. No JVD or lymphadenopathy. CARDIOVASCULAR: Regular rate and rhythm without murmurs, gallops, or rubs. RESPIRATORY: Breath sounds equal bilaterally. No accessory muscle use. GASTROINTESTINAL: Abdomen soft, non-tender, nondistended. MUSCULOSKELETAL: No cyanosis, or edema. BACK: Nontender without obvious deformity. No CVA tenderness. GENITOURINARY: No dysuria, no frequency, vaginal discharge or bleeding. Right Bartholin's gland is edematous, fluctuant. No erythema noted. Data Data Last Documented VS Vital Signs Date Time Temp Pulse Resp B/P Pulse Ox O2 Delivery O2 Flow Rate FiO2 08/25/16 16:28 18 08/25/16 15:59 98.1 72 125/73 99 Orders Lidocai-Epi 1%-1:100,000 Inj (Xylocaine- (08/25/16 17:00) MDM Medical Decision Making Medical Screen Exam Complete: Yes Emergency Medical Condition: Yes Interpretation(s) Vital Signs Date Time Temp Pulse Resp B/P Pulse Ox O2 Delivery O2 Flow Rate FiO2 08/25/16 16:28 18 08/25/16 15:59 98.1 72 14 125/73 99 Differential Diagnosis Bartholin's cyst versus Bartholin's abscess versus cellulitis versus other Narrative Course Patient is a 25-year-old female with a history of recurring Bartholin's abscess , presenting to the emergency Department with 2 weeks of pain and swelling. She was placed on Bactrim DS by her primary care provider a few days ago. Please see procedure poor for I&D. Patient tolerated procedure well, she was advised to continue taking Bactrim as previously prescribed. She was advised that she will need to follow-up with a quality reviewer, the gland likely needs to be removed due to the recurrence. Patient refuses Word catheter. Her department for any new or worsening symptoms, she was educated on wound care. Patient is stable for discharge. Procedures Procedure Narrative After the risks and benefits were discussed the following procedure was performed: INCISION AND DRAINAGE OF ABSCESS: The area was prepped and was sterilely draped. A subcutaneous wheal of 1 % Xylocaine with a total number 1 mL was used to anesthetize the area. The area was properly anesthetized. A number 11scalpel was used to make a 0.5 -cm incision across the area of the abscess. Cultures were obtained. The abscess was drained an irrigated with normal saline. She refused Word catheter. Diagnosis Primary Impression: Bartholin's gland abscess Referrals: [facility] 1 week Patient Instructions: Abscess Incision and Drainage (ED), Bartholin Cyst (ED), General Instructions Additional Instructions: Follow-up with a quality reviewer Complete full course of Bactrim DS as previously prescribed Return to emergency department for any new or worsening symptoms Keep area clean and dry, use gauze as directed Med/Other Pt SpecificInfo: No Change to Meds Disposition: 01 DISCHARGE HOME Condition: Stable Mouna Cunningham August 25, 2016 17:35
== END 2016-08-25 17:49 | disposition home or self-care (01) ==
LOC: NEPD 15:57
DX: N75.1 Abscess of Bartholin's gland (principal); B95.61 Methicillin susceptible Staphylococcus aureus infection as the cause of diseases classified elsewhere
CPT/HCPCS: 56420; 86403; 87070; 87186; 87205

== ENCOUNTER 2016-10-02 15:42 | Emergency (ER) | payer MEDICAID ==
[~2016-10-02] VITALS: Ht 170.2 cm; Wt 110.0 kg
[2016-10-02 15:45] VITALS: BP 111/71; PULSE 82; RESP 16; TEMP 98.7; O2SAT 96
--- NOTE | 2016-10-02 15:58 | PD ---
Physical Exam Date Seen by Provider: Oct 02, 2016 Time Seen by Provider: 15:56 Data Data Last Documented VS Vital Signs Date Time Temp Pulse Resp B/P Pulse Ox O2 Delivery O2 Flow Rate FiO2 10/02/16 15:45 98.7 82 16 111/71 96 MDM Supervised Visit with GILES: No Narrative Course 26 with complaint of "my Bartholin cyst" abscess x 1 week. Patient states shes had similar problems x 4 years. --F/C, dysuria Vitals reviewed. Awaiting bed placement. Erma Mackey Oct 02, 2016 15:58
--- NOTE | 2016-10-02 16:21 | PD ---
HPI . Bartholin's cyst for several years, worse over the past few days. Chief Complaint: Lump, Cyst, Hernia Time Seen by Provider: 16:21 Travel History International Travel<30 days: No Contact w/Intl Traveler<30days: No Traveled to known affect area: No History of Present Illness HPI 26-year-old female with anxiety and depression here with complaints of Bartholin 's cyst that she's had for over 4 years. Patient says that she's been trying to have her primary care provider and [employer]ED [employer] SOCIAL WORKER operate on this cyst, but they have not been able to do so. She does report having an appointment in 2 weeks where they think that they will remove the cyst, however for the past several days this area has continued to swell and cause a lot of discomfort. Her has been trying to pop the cyst, without success. She is here requesting examination and possible incision and drainage. He tells me it is interfering with her sex life. She has no other complaints at this time. PFSH Past Medical History Anxiety: Yes Depression: Yes Cancer: No Cardiovascular Problems: No Diabetes: No Diminished Hearing: No Endocrine: No Gastrointestinal Disorders: Yes GERD: Yes Genitourinary: No Headaches: Yes Hypertension: No Immune Disorder: No Implanted Vascular Access Dvce: No Musculoskeletal: No Psychiatric: Yes Reproductive: Yes Immunizations Current: Yes Migraines: Yes Sickle Cell Disease: No Ulcer: Yes ?: Not LMP: AUGUST 2016 : 4 Para: 1 Miscarriage: 2 : 1 Past Surgical History Abdominal Surgery: Yes (APPENDECTOMY) AICD: No Appendectomy: Yes Arteriovenous Shunt: No Cholecystectomy: Yes Insulin Pump: No Joint Replacement: No Pacemaker: No Other Surgery: Yes Social History Alcohol Use: Yes (OCC) Tobacco Use: No Substance Use: No Allergies-Medications (Allergen,Severity, Reaction): Coded Allergies: Toradol (Verified Allergy, Unknown, 08/25/16) Reported Meds & Prescriptions Reported Meds & Active Scripts Active Bactrim DS (Sulfamethoxazole-Trimethoprim) 800-160 Mg Tab 1 Tab PO BID Review of Systems General / Constitutional: No: Fever Eyes: No: Visual changes HENT: No: Headaches Cardiovascular: No: Chest Pain or Discomfort Respiratory: No: Shortness of Breath Gastrointestinal: No: Abdominal Pain Genitourinary: Positive: Other (bartholin cyst), No: Dysuria Musculoskeletal: No: Pain Skin: No Rash Neurologic: No: Weakness Psychiatric: No: Depression Endocrine: No: Polydipsia Hematologic/Lymphatic: No: Easy Bruising Physical Exam Narrative GENERAL: AAO x 3, no acute distress, Well-nourished, well-developed patient. SKIN: Warm and dry. No visible rashes or bruising. HEAD: Normocephalic and atraumatic. EYES: No scleral icterus. No injection or drainage. EOM intact, PERRLA ENT: No nasal drainage noted. Mucous membranes pink. Airway patent. NECK: Supple, trachea midline. No JVD. CARDIOVASCULAR: Regular rate and rhythm without murmurs, gallops, or rubs. RESPIRATORY: Breath sounds equal bilaterally. No accessory muscle use. No rhonchi or rales. GASTROINTESTINAL: Abdomen soft, non-tender, nondistended. GENITAL: [facility] RN present: + bartholin cyst on right side of labia, fluctuant, tender to touch, EXTREMITIES: No cyanosis or edema. BACK: Nontender without obvious deformity. No CVA tenderness. NEURO: CN II-12 intact, kitchen porter stenght normal b/l, UE and LE 5/5, no focal deficits PSYCH: AAO x 3, normal affect. Data Data Last Documented VS Vital Signs Date Time Temp Pulse Resp B/P Pulse Ox O2 Delivery O2 Flow Rate FiO2 10/02/16 15:45 98.7 82 16 111/71 96 Orders Wound Culture And Gram Stain (10/02/16 16:34) MDM Medical Decision Making Medical Screen Exam Complete: Yes Emergency Medical Condition: Yes Medical Record Reviewed: Yes Differential Diagnosis batholin cyst, abscess, less likely genital wart Narrative Course 26-year-old female here with complaints of Bartholin's cyst. On examination she does have a cyst that is amenable to incision and drainage. Patient gave verbal consent to the procedure. Refer to procedure note for details. Culture was collected and patient started on Bactrim to cover for MRSA. I have advised her that she will ultimately need to follow-up with her crane rigger for further evaluation and definitive treatment. Patient verbalized understanding of instructions, questions were answered, and thanked me for their care. I advised them if their condition worsens, please return to the nearest emergency room for further care. Procedures Procedure Narrative After the risks and benefits were discussed the following procedure was performed: INCISION AND DRAINAGE OF ABSCESS: The area was prepped and was sterilely draped. Ethyl chloride was used to anesthetize the area. The area was properly anesthetized. A number 11 scalpel was used to make a 1-cm incision across the area of the abscess. Cultures were obtained. The abscess was drained an irrigated with normal saline. Patient was advised to keep the area clean. Gauze and feminine pad provided prior to discharge. Diagnosis Primary Impression: Bartholin cyst Patient Instructions: General Instructions Additional Instructions: Please return to emergency department if your symptoms return or worsen. Follow up with your primary care provider. Take medications as prescribed. You will need to see a crane rigger to have this issue resolved. Med/Other Pt SpecificInfo: Prescription(s) given Scripts Sulfamethoxazole-Trimethoprim (Bactrim DS)800-160 Mg Tab1 Tab PO BID #20 TAB Prov:Clayton Carvalho MD 10/02/16 Disposition: 01 DISCHARGE HOME Condition: Stable Renetta David Oct 02, 2016 16:21
[2016-10-02] MEDS ORDERED: BACT800T5 PO (16:37)
== END 2016-10-02 17:50 | disposition home or self-care (01) ==
LOC: NEPD 15:42
DX: N75.0 Cyst of Bartholin's gland (principal); N75.1 Abscess of Bartholin's gland; B95.61 Methicillin susceptible Staphylococcus aureus infection as the cause of diseases classified elsewhere
CPT/HCPCS: 56420; 86403; 87070; 87186; 87205

== ENCOUNTER 2016-11-01 06:25 | Emergency (ER) | payer MEDICAID ==
[~2016-11-01] VITALS: Ht 170.2 cm; Wt 109.0 kg
[~2016-11-01 06:25] MED LIST changes: -BACL10TA PO; +BACT800T5 PO; -IBUP800T23 PO
[2016-11-01 06:28] VITALS: BP 150/99; PULSE 88; RESP 16; TEMP 97.6
[2016-11-01] MEDS ORDERED: SODIUM CHLOR 0.9% 1000 ML INJ 1,000 ML IV SCH (07:07)
--- NOTE | 2016-11-01 07:13 | PD ---
HPI Chief Complaint: Abdominal Pain Time Seen by Provider: 07:04 Travel History International Travel<30 days: No Contact w/Intl Traveler<30days: No Traveled to known affect area: No History of Present Illness HPI Patient is a 26 year old female who presents to ER with complaints of LUQ abdominal pain. Patient reports that her abdominal pain began yesterday morning , orts that pain is localized to her epigastrium to left upper quadrant. Reports that symptoms worsened last night and is now having nausea and vomiting. Patient denies history of GERD, denies any other medical history. Patient with no fevers or chills, denies any constipation or diarrhea. Patient denies any dysuria, urinary urgency or frequency. Patient reports no sick contacts. Denies any recent travels. Reports history of cholecystectomy in the past PFSH Past Medical History Anxiety: Yes Depression: Yes Cancer: No Cardiovascular Problems: No Diabetes: No Diminished Hearing: No Endocrine: No Gastrointestinal Disorders: Yes GERD: Yes Genitourinary: No Headaches: Yes Hypertension: No Immune Disorder: No Implanted Vascular Access Dvce: No Musculoskeletal: No Psychiatric: Yes Reproductive: Yes Immunizations Current: Yes Migraines: Yes Sickle Cell Disease: No Ulcer: Yes ?: Unknown LMP: SEPTEMBER? : 4 Para: 1 Miscarriage: 2 : 1 Past Surgical History Abdominal Surgery: Yes (APPENDECTOMY) AICD: No Appendectomy: Yes Arteriovenous Shunt: No Cholecystectomy: Yes Insulin Pump: No Joint Replacement: No Pacemaker: No Other Surgery: Yes Social History Alcohol Use: Yes (OCC) Tobacco Use: No Substance Use: No Allergies-Medications (Allergen,Severity, Reaction): Coded Allergies: Toradol (Verified Allergy, Unknown, 11/01/16) Reported Meds & Prescriptions Reported Meds & Active Scripts Active Bactrim DS (Sulfamethoxazole-Trimethoprim) 800-160 Mg Tab 1 Tab PO BID Review of Systems General / Constitutional: No: Fever, Chills Eyes: No: Visual changes HENT: No: Headaches Cardiovascular: No: Chest Pain or Discomfort Respiratory: No: Shortness of Breath Gastrointestinal: Positive: Nausea, Vomiting, Abdominal Pain Genitourinary: No: Urgency, Frequency, Dysuria, Pelvic Pain Musculoskeletal: No: Pain Skin: No Rash Neurologic: No: Weakness Psychiatric: No: Depression Endocrine: No: Polydipsia Hematologic/Lymphatic: No: Easy Bruising Physical Exam Narrative GENERAL: Mild distress SKIN: Focused skin assessment warm/dry. HEAD: Atraumatic. Normocephalic. EYES: No injection or drainage. ENT: No nasal bleeding or discharge. Mucous membranes pink and moist. NECK: Trachea midline. No JVD. CARDIOVASCULAR: Regular rate and rhythm. No murmur appreciated. RESPIRATORY: No accessory muscle use. Clear to auscultation. Breath sounds equal bilaterally. GASTROINTESTINAL: Abdomen soft, tenderness to the left upper quadrant epigastrium, nondistended. No peritoneal signs. Hepatic and splenic margins not palpable. MUSCULOSKELETAL: No obvious deformities. No clubbing. No cyanosis. No edema. NEUROLOGICAL: Awake and alert. No obvious cranial nerve deficits. Motor grossly within normal limits. Normal speech. PSYCHIATRIC: Appropriate mood and affect; insight and judgment normal. Data Data Last Documented VS Vital Signs Date Time Temp Pulse Resp B/P Pulse Ox O2 Delivery O2 Flow Rate FiO2 11/01/16 09:55 67 18 119/65 99 Room Air 11/01/16 06:28 97.6 Orders Complete Blood Count With Diff (11/01/16 07:07) Comprehensive Metabolic Panel (11/01/16 07:07) Lipase (11/01/16 07:07) Prothrombin Time / Inr (Pt) (11/01/16 07:07) Act Partial Throm Time (Ptt) (11/01/16 07:07) Urinalysis - C+S If Indicated (11/01/16 07:07) Iv Access Insert/Monitor (11/01/16 07:07) Ondansetron Inj (Zofran Inj) (11/01/16 07:15) Pantoprazole Inj (Protonix Inj) (11/01/16 07:15) Sodium Chlor 0.9% 1000 Ml Inj (Ns 1000 M (11/01/16 07:07) Sodium Chloride 0.9% Flush (Ns Flush) (11/01/16 07:15) Dicyclomine (Bentyl) (11/01/16 07:15) Ed Urine Pregnancytest Poc (11/01/16 07:07) Morphine Inj (Morphine Inj) (11/01/16 07:45) Sodium Chlor 0.9% 1000 Ml Inj (Ns 1000 M (11/01/16 08:30) Morphine Inj (Morphine Inj) (11/01/16 09:45) Al-Mag Hy-Si 40-40-4 Mg/Ml Liq (Mag-Al P (11/01/16 09:45) Lidocaine 2% Viscous (Xylocaine 2% Visco (11/01/16 09:45) Ct Abd/Pel W Iv Contrast(Rout) (11/01/16 09:49) Iohexol 350 Inj (Omnipaque 350 Inj) (11/01/16 10:11) Labs Laboratory Tests Test 11/01/16 11/01/16 06:48 09:10 White Blood Count 8.6 TH/MM3 Red Blood Count 5.13 MIL/MM3 Hemoglobin 13.1 GM/DL Hematocrit 40.9 % Mean Corpuscular Volume 79.8 FL Mean Corpuscular Hemoglobin 25.6 PG Mean Corpuscular Hemoglobin 32.1 % Concent Red Cell Distribution Width 14.4 % Platelet Count 371 TH/MM3 Mean Platelet Volume 8.4 FL Neutrophils (%) (Auto) 32.8 % Lymphocytes (%) (Auto) 59.2 % Monocytes (%) (Auto) 5.3 % Eosinophils (%) (Auto) 2.1 % Basophils (%) (Auto) 0.6 % Neutrophils # (Auto) 2.8 TH/MM3 Lymphocytes # (Auto) 5.1 TH/MM3 Monocytes # (Auto) 0.5 TH/MM3 Eosinophils # (Auto) 0.2 TH/MM3 Basophils # (Auto) 0.1 TH/MM3 CBC Comment AUTO DIFF Differential Comment AUTO DIFF CONFIRMED Platelet Estimate NORMAL Platelet Morphology Comment NORMAL Prothrombin Time 10.1 SEC Prothromb Time International 0.9 RATIO Ratio Activated Partial 25.7 SEC Thromboplast Time Sodium Level 139 MEQ/L Potassium Level 4.3 MEQ/L Chloride Level 109 MEQ/L Carbon Dioxide Level 22.5 MEQ/L Anion Gap 8 MEQ/L Blood Urea Nitrogen 8 MG/DL Creatinine 0.80 MG/DL Estimat Glomerular Filtration 105 ML/MIN Rate Random Glucose 106 MG/DL Calcium Level 9.1 MG/DL Total Bilirubin 0.5 MG/DL Aspartate Amino Transf 17 U/L (AST/SGOT) Alanine Aminotransferase 28 U/L (ALT/SGPT) Alkaline Phosphatase 77 U/L Total Protein 7.7 GM/DL Albumin 3.7 GM/DL Lipase 137 U/L Urine Color YELLOW Urine Turbidity CLEAR Urine pH 5.5 Urine Specific [place] 1.022 Urine Protein NEG mg/dL Urine Glucose (UA) NEG mg/dL Urine Ketones NEG mg/dL Urine Occult Blood NEG Urine Nitrite NEG Urine Bilirubin NEG Urine Urobilinogen LESS THAN 2.0 MG/DL Urine Leukocyte Esterase NEG Urine RBC LESS THAN 1 /hpf Urine WBC 1 /hpf Urine Squamous Epithelial 1 /hpf Cells Urine Mucus FEW /lpf Microscopic Urinalysis Comment CULT NOT INDICATED MDM Medical Decision Making Medical Screen Exam Complete: Yes Emergency Medical Condition: Yes Interpretation(s) Vital Signs Date Time Temp Pulse Resp B/P Pulse Ox O2 Delivery O2 Flow Rate FiO2 11/01/16 06:28 97.6 88 16 150/99 Room Air Differential Diagnosis Differential includes gastritis, gastroenteritis, GERD, ulcer, electrolyte abnormality, pancreatitis Narrative Course 26-year-old female who presents to emergency room with complaints of nausea vomiting and left upper quadrant abdominal pain since yesterday morning. Patient denies any inciting factors which precipitated her abdominal pain, reports that pain has progressively gotten worse over the night, reports that now she feels nauseous and has been vomiting. Patient uncomfortable at bedside , plan to obtain blood work, will give antiemetics as well as pain medications. Plan to perform serial abdominal exams. Vital Signs Date Time Temp Pulse Resp B/P Pulse Ox O2 Delivery O2 Flow Rate FiO2 11/01/16 06:28 97.6 88 16 150/99 Room Air Laboratory Tests Test 11/01/16 06:48 White Blood Count 8.6 TH/MM3 (4.0-11.0) Red Blood Count 5.13 MIL/MM3 (4.00-5.30) Hemoglobin 13.1 GM/DL (11.6-15.3) Hematocrit 40.9 % (35.0-46.0) Mean Corpuscular Volume 79.8 FL (80.0-100.0) Mean Corpuscular Hemoglobin 25.6 PG (27.0-34.0) Mean Corpuscular Hemoglobin 32.1 % Concent (32.0-36.0) Red Cell Distribution Width 14.4 % (11.6-17.2) Platelet Count 371 TH/MM3 (150-450) Mean Platelet Volume 8.4 FL (7.0-11.0) Neutrophils (%) (Auto) 32.8 % (16.0-70.0) Lymphocytes (%) (Auto) 59.2 % (9.0-44.0) Monocytes (%) (Auto) 5.3 % (0.0-8.0) Eosinophils (%) (Auto) 2.1 % (0.0-4.0) Basophils (%) (Auto) 0.6 % (0.0-2.0) Neutrophils # (Auto) 2.8 TH/MM3 (1.8-7.7) Lymphocytes # (Auto) 5.1 TH/MM3 (1.0-4.8) Monocytes # (Auto) 0.5 TH/MM3 (0-0.9) Eosinophils # (Auto) 0.2 TH/MM3 (0-0.4) Basophils # (Auto) 0.1 TH/MM3 (0-0.2) CBC Comment AUTO DIFF Prothrombin Time 10.1 SEC (9.8-11.6) Prothromb Time International 0.9 RATIO Ratio Activated Partial 25.7 SEC Thromboplast Time (24.3-30.1) Sodium Level 139 MEQ/L (136-145) Potassium Level 4.3 MEQ/L (3.5-5.1) Chloride Level 109 MEQ/L (98-107) Carbon Dioxide Level 22.5 MEQ/L (21.0-32.0) Anion Gap 8 MEQ/L (5-15) Blood Urea Nitrogen 8 MG/DL (7-18) Creatinine 0.80 MG/DL (0.50-1.00) Estimat Glomerular Filtration 105 ML/MIN Rate (>89) Random Glucose 106 MG/DL (74-106) Calcium Level 9.1 MG/DL (8.5-10.1) Total Bilirubin 0.5 MG/DL (0.2-1.0) Aspartate Amino Transf 17 U/L (15-37) (AST/SGOT) Alanine Aminotransferase 28 U/L (10-53) (ALT/SGPT) Alkaline Phosphatase 77 U/L (45-117) Total Protein 7.7 GM/DL (6.4-8.2) Albumin 3.7 GM/DL (3.4-5.0) Lipase 137 U/L (73-393) Patient reevaluated, abdomen is soft, nontender, nondistended, no peritoneal signs. Reports that she is feeling much better at this time. Labs reviewed: CBC: wnl BMP: Sodium 139, chloride 109, potassium 4.3, BUN 8, creatinine 0.80, glucose 106, lipase 137, AST 17, ALT 28, alkaline phosphatase 77 INR 0.9 Plan to give one more liter of IV fluids for a total of 2L IVF NS Bolus, will po trail patient. Laboratory Tests Test 11/01/16 11/01/16 06:48 09:10 White Blood Count 8.6 TH/MM3 (4.0-11.0) Red Blood Count 5.13 MIL/MM3 (4.00-5.30) Hemoglobin 13.1 GM/DL (11.6-15.3) Hematocrit 40.9 % (35.0-46.0) Mean Corpuscular Volume 79.8 FL (80.0-100.0) Mean Corpuscular Hemoglobin 25.6 PG (27.0-34.0) Mean Corpuscular Hemoglobin 32.1 % Concent (32.0-36.0) Red Cell Distribution Width 14.4 % (11.6-17.2) Platelet Count 371 TH/MM3 (150-450) Mean Platelet Volume 8.4 FL (7.0-11.0) Neutrophils (%) (Auto) 32.8 % (16.0-70.0) Lymphocytes (%) (Auto) 59.2 % (9.0-44.0) Monocytes (%) (Auto) 5.3 % (0.0-8.0) Eosinophils (%) (Auto) 2.1 % (0.0-4.0) Basophils (%) (Auto) 0.6 % (0.0-2.0) Neutrophils # (Auto) 2.8 TH/MM3 (1.8-7.7) Lymphocytes # (Auto) 5.1 TH/MM3 (1.0-4.8) Monocytes # (Auto) 0.5 TH/MM3 (0-0.9) Eosinophils # (Auto) 0.2 TH/MM3 (0-0.4) Basophils # (Auto) 0.1 TH/MM3 (0-0.2) CBC Comment AUTO DIFF Differential Comment AUTO DIFF CONFIRMED Platelet Estimate NORMAL (NORMAL) Platelet Morphology Comment NORMAL (NORMAL) Prothrombin Time 10.1 SEC (9.8-11.6) Prothromb Time International 0.9 RATIO Ratio Activated Partial 25.7 SEC Thromboplast Time (24.3-30.1) Sodium Level 139 MEQ/L (136-145) Potassium Level 4.3 MEQ/L (3.5-5.1) Chloride Level 109 MEQ/L (98-107) Carbon Dioxide Level 22.5 MEQ/L (21.0-32.0) Anion Gap 8 MEQ/L (5-15) Blood Urea Nitrogen 8 MG/DL (7-18) Creatinine 0.80 MG/DL (0.50-1.00) Estimat Glomerular Filtration 105 ML/MIN Rate (>89) Random Glucose 106 MG/DL (74-106) Calcium Level 9.1 MG/DL (8.5-10.1) Total Bilirubin 0.5 MG/DL (0.2-1.0) Aspartate Amino Transf 17 U/L (15-37) (AST/SGOT) Alanine Aminotransferase 28 U/L (10-53) (ALT/SGPT) Alkaline Phosphatase 77 U/L (45-117) Total Protein 7.7 GM/DL (6.4-8.2) Albumin 3.7 GM/DL (3.4-5.0) Lipase 137 U/L (73-393) Urine Color YELLOW (YELLW/STRAW) Urine Turbidity CLEAR (CLEAR) Urine pH 5.5 (5.0-8.5) Urine Specific [place] 1.022 (1.002-1.035) Urine Protein NEG mg/dL (NEG-TRACE) Urine Glucose (UA) NEG mg/dL (NEG) Urine Ketones NEG mg/dL (NEG) Urine Occult Blood NEG (NEG) Urine Nitrite NEG (NEG) Urine Bilirubin NEG (NEG) Urine Urobilinogen LESS THAN 2.0 MG/DL (LESS THAN 2.0) Urine Leukocyte Esterase NEG (NEG) Urine RBC LESS THAN 1 /hpf (0-3) Urine WBC 1 /hpf (0-5) Urine Squamous Epithelial 1 /hpf (0-5) Cells Urine Mucus FEW /lpf (OCC) Microscopic Urinalysis Comment CULT NOT INDICATED Labs reviewed, labs as well as UA benign, I went to evaluate patient, patient crying in pain. Patient reports increased pain to her left upper quadrant, patient requesting more pain medications, reports "the pain is back." CT of abdomen and pelvis ordered to evaluate for further etiology of abdominal pain. Will remedicate patient CT of the abdomen and pelvis shows no etiology for abdominal pain. There are no acute findings. Patient with most likely acute gastroenteritis. Discussed need for her to follow up with her pcp. Reviewed signs and symptoms of acute abdomen. patient understands when to return to the ER. Diagnosis Primary Impression: Abdominal pain Qualified Code: R10.12 - Left upper quadrant pain Additional Impression: nausea and vomiting Patient Instructions: General Instructions, Narcotic given in the ED Additional Instructions: Please return to ER as needed Please follow up with your primary care doctor Follow up with District Adviser Bring a copy of your lab work and studies to your doctor's office for follow up visit Med/Other Pt SpecificInfo: Prescription(s) given Scripts Ondansetron (Zofran)4 Mg Tab4 Mg PO Q6HR PRN (NAUSEA OR VOMITING) #12 TAB Ref 0 Prov:Dot Turner DO 11/01/16 Famotidine (Pepcid)20 Mg Tab20 Mg PO BID #20 TAB Ref 0 Prov:Dot Turner DO 11/01/16 Disposition: 01 DISCHARGE HOME Condition: Stable Dot Turner DO Nov 01, 2016 07:13
[2016-11-01] MEDS ORDERED: PANTOPRAZOLE SODIUM 40 MG VIAL IVP ONE (07:15)
[2016-11-01] MEDS ORDERED: SODIUM CHLORIDE 0.9% FLUSH 10 ML FLUSH IV FLUSH PRN (07:15)
[2016-11-01] MEDS ORDERED: DICYCLOMINE HCL 10 MG CAP PO ONE (07:15)
[2016-11-01] MEDS ORDERED: ONDANSETRON HCL 4 MG/2 ML VIAL IVP ONE (07:15)
[2016-11-01] MEDS ORDERED: MORPHINE SULFATE 4 MG/ML INJ IV PUSH ONE ×3 (07:15→09:45)
[2016-11-01 07:44] LABS: AUTOMATED NEUTROPHIL # 2.8 TH/MM3 (1.8-7.7); BASOPHIL # 0.1 TH/MM3 (0-0.2); BASOPHIL % 0.6 % (0.0-2.0); EOSINOPHIL # 0.2 TH/MM3 (0-0.4); EOSINOPHIL % 2.1 % (0.0-4.0); HEMATOCRIT 40.9 % (35.0-46.0); LYMPH % 59.2 % (9.0-44.0); LYMPHOCYTE # 5.1 TH/MM3 (1.0-4.8); MEAN CELL VOLUME 79.8 FL (80.0-100.0); MEAN CORPUSCULAR HEMOGLOBIN 25.6 PG (27.0-34.0); MEAN CORPUSCULAR HGB CONC 32.1 % (32.0-36.0); MONO % 5.3 % (0.0-8.0); NEUT % 32.8 % (16.0-70.0); PLATELET COUNT 371 TH/MM3 (150-450); RED BLOOD COUNT 5.13 MIL/MM3 (4.00-5.30); RED CELL DISTRIBUTION WIDTH 14.4 % (11.6-17.2); WHITE BLOOD COUNT 8.6 TH/MM3 (4.0-11.0)
[2016-11-01 07:45] LABS: HEMO FLAGS AUTO DIFF
[2016-11-01 07:51] LABS: APTT (PATIENT) 25.7 SEC (24.3-30.1); INTERNATIONAL NORMALIZED RATIO 0.9 RATIO; PROTHROMBIN TIME - PATIENT 10.1 SEC (9.8-11.6)
[2016-11-01 07:55] LABS: ANION GAP 8 MEQ/L (5-15); AST (GOT) 17 U/L (15-37); BICARBONATE 22.5 MEQ/L (21.0-32.0); BLOOD UREA NITROGEN 8 MG/DL (7-18); CHLORIDE 109 MEQ/L (98-107); GLOMERULAR FILTRATION RATE 105 ML/MIN (>89); POTASSIUM 4.3 MEQ/L (3.5-5.1); SODIUM (NA) 139 MEQ/L (136-145)
[2016-11-01 07:56] LABS: ALT (GPT) 28 U/L (10-53)
[2016-11-01 07:58] LABS: ALKALINE PHOSPHATASE 77 U/L (45-117); TOTAL BILIRUBIN ADULT 0.5 MG/DL (0.2-1.0)
[2016-11-01] MEDS ORDERED: SODIUM CHLOR 0.9% 1000 ML INJ 1,000 ML IV ONE (08:30)
[2016-11-01 08:58] LABS: PLATELET ESTIMATE SMEAR NORMAL (NORMAL); PLATELET MORPHOLOGY NORMAL (NORMAL); SCAN/DIFF AUTO DIFF CONFIRMED
[2016-11-01 09:24] LABS: BLOOD, URINE NEG (NEG); COMMENT (UR) CULT NOT INDICATED; CULTURE IF INDICATED CULT NOT INDICATED; GLUCOSE,URINE NEG (NEG); KETONE, URINE NEG (NEG); MUCUS URINE FEW /lpf (OCC); NITRITE,URINE NEG (NEG); PH, URINE 5.5 (5.0-8.5); SQUAMOUS EPITHELIAL CELL URINE 1 /hpf (0-5); URINE COLOR YELLOW (YELLW/STRAW)
[2016-11-01] MEDS ORDERED: ALUMINUM/MAGNESIUM/SIMETH 30 ML CUP PO ONE (09:45)
[2016-11-01] MEDS ORDERED: LIDOCAINE VISCOUS 2% SOLN 15 ML UDC PO ONE (09:45)
[2016-11-01 09:55] VITALS: BP 119/65; PULSE 67; RESP 18; O2SAT 99
[2016-11-01] MEDS ORDERED: IOHEXOL 350 MG/ML 10 ML VIAL (for RAD DIAG) IV ONE (10:11)
--- NOTE | 2016-11-01 10:29 | RADRPT ---
EXAM DATE/TIME: 11/01/2016 10:06 [facility] COMPARISON: CT ABDOMEN & PELVIS W CONTRAST, January 03, 2015, 10:07. INDICATIONS : Abdomen pain. IV CONTRAST: 100 cc Omnipaque 350 (iohexol) IV ORAL CONTRAST: No oral contrast ingested. RADIATION DOSE: 16.34 CTDIvol (mGy) MEDICAL HISTORY : Ulcers. SURGICAL HISTORY : Cholecystectomy. Appendectomy. ENCOUNTER: Initial ACUITY: 1 day PAIN SCALE: 5/10 LOCATION: Bilateral abdomen. TECHNIQUE: Volumetric scanning of the abdomen and pelvis was performed. Using automated exposure control and ad justment of the mA and/or kV according to patient size, radiation dose was kept as low as reasonably achievable to obtain optimal diagnostic quality images. DICOM format image data is available electro nically for review and comparison. FINDINGS: LOWER LUNGS: The visualized lower lungs are clear. LIVER: Homogeneous density without lesion. There is no dilation of the biliary tree. Cholecystectomy clips SPLEEN: Normal size without lesion. PANCREAS: Within normal limits. KIDNEYS: Normal in size and shape. There is no mass, stone or hydronephrosis. ADRENAL GLANDS: Within normal limits. VASCULAR: There is no aortic aneurysm. BOWEL/MESENTERY: Surgical clips in the right side of the abdomen. The stomach, small bowel, and colon demonstrate no a cute abnormality. There is no free intraperitoneal air or fluid. ABDOMINAL WALL: Within normal limits. RETROPERITONEUM: There is no lymphadenopathy. BLADDER: No wall thickening or mass. REPRODUCTIVE: Within normal limits. IUD in place INGUINAL: There is no lymphadenopathy or hernia. MUSCULOSKELETAL: Within normal limits for patient age. CONCLUSION: Surgical clips right midabdomen. IUD is in position. No etiology for abdominal pain is identified. Ch olecystectomy clips. Eric Lane MD on November 01, 2016 at 10:27 Board Certified Radiologist. This report was verified electronically.
[2016-11-01] MEDS ORDERED: ZOFR4TAB PO (10:33)
[2016-11-01] MEDS ORDERED: FAMO1TAB37 PO (10:33)
== END 2016-11-01 11:12 | disposition home or self-care (01) ==
LOC: NEPC 06:25
DX: R10.12 Left upper quadrant pain (principal); R11.2 Nausea with vomiting, unspecified; F41.9 Anxiety disorder, unspecified; F32.9 Major depressive disorder, single episode, unspecified; K21.9 Gastro-esophageal reflux disease without esophagitis; Z79.899 Other long term (current) drug therapy; Z88.5 Allergy status to narcotic agent
CPT/HCPCS: 74177; 80053; 81001; 83690; 84703; 85025; 85610; 85730; 96361; 96374; 96375; 96376; 99285; C9113; J2270; J2405; J7030; Q9967

== ENCOUNTER 2016-11-14 12:55 | Emergency (ER) | payer MEDICAID ==
[~2016-11-14] VITALS: Ht 170.2 cm; Wt 109.0 kg
[~2016-11-14 12:55] MED LIST changes: +FAMO1TAB37 PO; +ZOFR4TAB PO
[2016-11-14 12:56] VITALS: BP 142/71; PULSE 87; RESP 16; TEMP 98.2; O2SAT 98
--- NOTE | 2016-11-14 13:15 | PD ---
HPI . LUQ pain for weeks Chief Complaint: Abnormal Results Time Seen by Provider: 13:15 Travel History International Travel<30 days: No Contact w/Intl Traveler<30days: No Traveled to known affect area: No History of Present Illness HPI 26-year-old female here with complaints of left upper quadrant pain. Patient reports that she's had intermittent left upper quadrant pain that she describes as stabbing in nature. She denies any radiation of the pain elsewhere. She has some associated nausea and has vomited 5 times this morning. She tells me that the pain hit her with a sudden mcgee and made her lose her balance while going downstairs and she accidentally twisted her right ankle. She is currently ambulatory and has very minimal pain in this ankle. She was recently seen on 11/01/2016 here in the emergency department and had labs and CT scan of the abdomen and pelvis done. There were no gross abnormalities. She was advised to see her PCP, which she has done. Workup is in progress. She denies any fever, chills, chest pain, shortness of breath, diarrhea or constipation. PFSH Past Medical History Anxiety: Yes Depression: Yes Cancer: No Cardiovascular Problems: No Diabetes: No Diminished Hearing: No Endocrine: No Gastrointestinal Disorders: Yes GERD: Yes Genitourinary: No Headaches: Yes Hypertension: No Immune Disorder: No Implanted Vascular Access Dvce: No Musculoskeletal: No Psychiatric: Yes Reproductive: Yes Immunizations Current: Yes Migraines: Yes Sickle Cell Disease: No Ulcer: Yes ?: Not LMP: 2 weeks ago : 4 Para: 1 Miscarriage: 2 : 1 Past Surgical History Abdominal Surgery: Yes (APPENDECTOMY) AICD: No Appendectomy: Yes Arteriovenous Shunt: No Cholecystectomy: Yes Insulin Pump: No Joint Replacement: No Pacemaker: No Other Surgery: Yes Social History Alcohol Use: Yes (OCC) Tobacco Use: No Substance Use: No Allergies-Medications (Allergen,Severity, Reaction): Coded Allergies: Toradol (Verified Allergy, Unknown, 11/01/16) Reported Meds & Prescriptions Reported Meds & Active Scripts Active Protonix (Pantoprazole Sodium) 20 Mg Tab 20 Mg PO DAILY Review of Systems General / Constitutional: No: Fever Eyes: No: Visual changes HENT: No: Headaches Cardiovascular: No: Chest Pain or Discomfort Respiratory: No: Shortness of Breath Gastrointestinal: Positive: Nausea, Vomiting, Abdominal Pain (LUQ) Genitourinary: No: Dysuria Musculoskeletal: No: Pain Skin: No Rash Neurologic: No: Weakness Psychiatric: No: Depression Endocrine: No: Polydipsia Hematologic/Lymphatic: No: Easy Bruising Physical Exam Narrative GENERAL: AAO x 3, no acute distress, Well-nourished, well-developed patient. SKIN: Warm and dry. No visible rashes or bruising. HEAD: Normocephalic and atraumatic. EYES: No scleral icterus. No injection or drainage. EOM intact, PERRLA ENT: No nasal drainage noted. Mucous membranes pink. Airway patent. Moist mucous membranes NECK: Supple, trachea midline. No JVD. CARDIOVASCULAR: Regular rate and rhythm without murmurs, gallops, or rubs. RESPIRATORY: Breath sounds equal bilaterally. No accessory muscle use. No rhonchi or rales. GASTROINTESTINAL: Abdomen soft, nondistended. normoactive bowel sounds, tenderness to deep palpation in LUQ EXTREMITIES: No cyanosis or edema. Right ankle rotation is normal, dorsi and plantar flexion normal, pedal pulses intact BACK: No obvious deformity. NEURO: CN II-12 intact, content development specialist strength normal b/l, UE and LE 5/5, no focal deficits PSYCH: AAO x 3, normal affect. Data Data Last Documented VS Vital Signs Date Time Temp Pulse Resp B/P Pulse Ox O2 Delivery O2 Flow Rate FiO2 11/14/16 12:56 98.2 87 16 142/71 98 Orders Ondansetron Inj (Zofran Inj) (11/14/16 13:30) MDM Medical Decision Making Medical Screen Exam Complete: Yes Emergency Medical Condition: Yes Medical Record Reviewed: Yes Differential Diagnosis Gastroenteritis, Gastritis, GERD, less likely colitis, less likely diverticulitis, less likely constipation, Narrative Course 26-year-old female here with recurrent left upper quadrant pain. Patient received a complete workup on November 01, [address] scan of the abdomen and pelvis. I was reviewed all of these results and discuss them with her. I do not believe any acute abdomen or surgical pathology at this point. Her examination is fairly benign except for some tenderness to her left upper quadrant with deep palpation. I do believe that she will benefit from an outpatient GI referral. I've advised her to follow-up with her primary care provider. Patient is hemodynamically stable with no signs of distress. In regards to her right ankle, she has full range of motion and is ambulatory. I do not suspect a sprain or fracture. She does not meet criteria for imaging per [place] ankle rules. I discussed this with her and she is in agreement I discussed the case with Dr. Suárez. We will try a course of PPIs. 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 Patient verbalized understanding of instructions, questions were answered, and thanked me for their care. I advised them if their condition worsens, please return to the nearest emergency room for further care. Prior to discharge patient requesting a note to be excused from work until Wednesday. I do suspect a slight bit of malingering. Diagnosis Primary Impression: Abdominal pain Qualified Code: R10.12 - Left upper quadrant pain Additional Impression: Ankle pain, right Qualified Code: M25.571 - Acute right ankle pain Referrals: [facility] Patient Instructions: General Instructions Departure Forms: Tests/Procedures, Work Release Enter return to work date: Nov 15, 2016 Additional Instructions: Please follow-up with her primary care provider Please return to emergency department if your symptoms return or worsen. Follow up with your primary care provider. Take medications as prescribed. Med/Other Pt SpecificInfo: Prescription(s) given Scripts Pantoprazole (Protonix)20 Mg Tab20 Mg PO DAILY #15 TAB Ref 0 Prov:Emmie Campo MD 11/14/16 Disposition: 01 DISCHARGE HOME Condition: Stable Renetta David Nov 14, 2016 13:15
[2016-11-14] MEDS ORDERED: PANT20 PO (13:27)
[2016-11-14] MEDS ORDERED: ONDANSETRON HCL 4 MG/2 ML VIAL IM ONE (13:30)
== END 2016-11-14 14:06 | disposition home or self-care (01) ==
LOC: NEPD 12:55
DX: R10.12 Left upper quadrant pain (principal); M25.571 Pain in right ankle and joints of right foot
CPT/HCPCS: 96372; 99284; J2405

== ENCOUNTER 2016-12-17 16:12 | Emergency (ER) | payer MEDICAID ==
[~2016-12-17] VITALS: Ht 170.2 cm; Wt 115.0 kg
[~2016-12-17 16:12] MED LIST changes: -BACT800T5 PO; -FAMO1TAB37 PO; +PANT20 PO; -ZOFR4TAB PO
[2016-12-17 16:17] VITALS: BP 121/84; PULSE 84; RESP 17; TEMP 97.7; O2SAT 95
--- NOTE | 2016-12-17 16:28 | PD ---
Physical Exam Time Seen by Provider: 16:25 Narrative 26yo F sent by Dr. Parmar. C/o lower abd pains x4-5 days. +N,V, D. Sweats, chills. Saw PCP and negative in office. Mirena in place x 2 years and possible cause per PCP. +fouls smelling vag dc x 1 month. Hx appendectomy. Patient seen in triage. VS reviewed. Awaiting bed placement. Data Data Last Documented VS Vital Signs Date Time Temp Pulse Resp B/P (MAP) Pulse Ox O2 Delivery O2 Flow Rate FiO2 12/17/16 16:17 97.7 84 17 121/84 (96) 95 MDM Supervised Visit with GILES: Beth Aguilar Dec 17, 2016 16:28
[2016-12-17] MEDS ORDERED: SODIUM CHLOR 0.9% 1000 ML INJ 1,000 ML IV ONE (16:51)
--- NOTE | 2016-12-17 16:53 | PD ---
HPI Chief Complaint: Abdominal Pain Time Seen by Provider: 16:45 Travel History International Travel<30 days: No Contact w/Intl Traveler<30days: No Traveled to known affect area: No History of Present Illness HPI 26-year-old female presents to the emergency department for evaluation of pelvic pain that started on Wednesday with vomiting. Patient states she has run fevers at home up to 103. She took Tylenol at 10 AM. She has had no fever since. The patient reports history of cholecystectomy and appendectomy. She is sexually active with her , denies any new sexual partners or risk of STDs. Patient states she is determined diarrhea. No blood in her stool. She is currently followed up with her primary care physician today who referred her to the emergency department. He did a urinalysis and a test which was negative. Patient reports no chronic medical problems. She takes no prescribed medications. She is allergic to Toradol. She has IUD and denies . Patient denies similar symptoms in the past. She does report some abnormal vaginal discharge. PFSH Past Medical History Anxiety: Yes Depression: Yes Cancer: No Cardiovascular Problems: No Diabetes: No Diminished Hearing: No Endocrine: No Gastrointestinal Disorders: Yes GERD: Yes Genitourinary: No Headaches: Yes Hypertension: No Immune Disorder: No Implanted Vascular Access Dvce: No Musculoskeletal: No Psychiatric: Yes Reproductive: Yes Immunizations Current: Yes Migraines: Yes Sickle Cell Disease: No Ulcer: Yes ?: Not LMP: 11/2016 : 4 Para: 1 Miscarriage: 2 : 1 Past Surgical History Abdominal Surgery: Yes (APPENDECTOMY) AICD: No Appendectomy: Yes Arteriovenous Shunt: No Cholecystectomy: Yes Insulin Pump: No Joint Replacement: No Pacemaker: No Other Surgery: Yes Social History Alcohol Use: No ( ) Tobacco Use: No Substance Use: No Allergies-Medications (Allergen,Severity, Reaction): Coded Allergies: ketorolac (Unverified Allergy, Unknown, 12/17/16) Reported Meds & Prescriptions Reported Meds & Active Scripts Active Protonix (Pantoprazole Sodium) 20 Mg Tab 20 Mg PO DAILY Review of Systems Except as stated in HPI: all other systems reviewed are Neg Physical Exam Narrative GENERAL: Well-nourished, well-developed female patient, afebrile. SKIN: Focused skin assessment warm/dry. HEAD: Normocephalic. Atraumatic. EYES: No scleral icterus. No injection or drainage. NECK: Supple, trachea midline. No JVD or lymphadenopathy. CARDIOVASCULAR: Regular rate and rhythm without murmurs, gallops, or rubs. RESPIRATORY: Breath sounds equal bilaterally. No accessory muscle use. Lungs sounds are clear to auscultation. GASTROINTESTINAL: Abdomen soft and nondistended. Patient has pelvic tenderness to palpation. MUSCULOSKELETAL: No cyanosis, or edema. BACK: Nontender without obvious deformity. No CVA tenderness. GENITOURINARY: Normal external genitalia without lesions or erythema. Vaginal vault without blood. Thick white drainage noted. Cervical os was closed without drainage. No cervical motion tenderness. Uterus nontender and nonenlarged. Bilateral adnexa nontender without masses. This exam was done with BATSHEVA Cline at bedside. Data Data Last Documented VS Vital Signs Date Time Temp Pulse Resp B/P (MAP) Pulse Ox O2 Delivery O2 Flow Rate FiO2 12/17/16 16:17 97.7 84 17 121/84 (96) 95 Orders Orders Complete Blood Count With Diff (12/17/16 16:29) Comprehensive Metabolic Panel (12/17/16 16:29) Lipase (12/17/16 16:29) Urinalysis - C+S If Indicated (12/17/16 16:29) Iv Access Insert/Monitor (12/17/16 16:29) Ed Urine Pregnancytest Poc (12/17/16 16:29) Gc And Chlamydia Pcr (12/17/16 16:51) Wet Prep Profile (12/17/16 16:51) Sodium Chlor 0.9% 1000 Ml Inj (Ns 1000 M (12/17/16 16:51) Ondansetron Inj (Zofran Inj) (12/17/16 17:00) Morphine Inj (Morphine Inj) (12/17/16 17:15) Us Pelvis Comp W Dop Transvag (12/17/16 ) Ondansetron Inj (Zofran Inj) (12/17/16 19:00) Labs Laboratory Tests Test 12/17/16 17:10 12/17/16 17:45 12/17/16 18:20 White Blood Count 8.3 TH/MM3 Red Blood Count 4.79 MIL/MM3 Hemoglobin 13.0 GM/DL Hematocrit 39.0 % Mean Corpuscular Volume 81.5 FL Mean Corpuscular Hemoglobin 27.1 PG Mean Corpuscular Hemoglobin Concent 33.2 % Red Cell Distribution Width 14.6 % Platelet Count 338 TH/MM3 Mean Platelet Volume 8.3 FL Neutrophils (%) (Auto) 51.0 % Lymphocytes (%) (Auto) 40.2 % Monocytes (%) (Auto) 7.6 % Eosinophils (%) (Auto) 0.8 % Basophils (%) (Auto) 0.4 % Neutrophils # (Auto) 4.3 TH/MM3 Lymphocytes # (Auto) 3.4 TH/MM3 Monocytes # (Auto) 0.6 TH/MM3 Eosinophils # (Auto) 0.1 TH/MM3 Basophils # (Auto) 0.0 TH/MM3 CBC Comment DIFF FINAL Differential Comment Blood Urea Nitrogen 8 MG/DL Creatinine 0.82 MG/DL Random Glucose 97 MG/DL Total Protein 7.8 GM/DL Albumin 3.6 GM/DL Calcium Level 8.8 MG/DL Alkaline Phosphatase 67 U/L Aspartate Amino Transf (AST/SGOT) 14 U/L Alanine Aminotransferase (ALT/SGPT) 29 U/L Total Bilirubin 0.4 MG/DL Sodium Level 137 MEQ/L Potassium Level 3.9 MEQ/L Chloride Level 107 MEQ/L Carbon Dioxide Level 22.5 MEQ/L Anion Gap 8 MEQ/L Estimat Glomerular Filtration Rate 102 ML/MIN Lipase 121 U/L Urine Color YELLOW Urine Turbidity CLEAR Urine pH 5.5 Urine Specific [place] 1.029 Urine Protein TRACE mg/dL Urine Glucose (UA) NEG mg/dL Urine Ketones NEG mg/dL Urine Occult Blood NEG Urine Nitrite NEG Urine Bilirubin NEG Urine Urobilinogen LESS THAN 2.0 MG/DL Urine Leukocyte Esterase NEG Urine RBC LESS THAN 1 /hpf Urine WBC 1 /hpf Urine Squamous Epithelial Cells 4 /hpf Urine Amorphous Sediment RARE Urine Mucus FEW /lpf Microscopic Urinalysis Comment CULT NOT INDICATED Clue Cells (Wet Prep) NONE SEEN Vaginal Trichomonas (Wet Prep) NONE SEEN Vaginal Yeast (Wet Prep) NONE SEEN MDM Medical Decision Making Medical Screen Exam Complete: Yes Emergency Medical Condition: Yes Medical Record Reviewed: Yes Interpretation(s) US - CONCLUSION: No abnormality is identified to explain the pelvic pain. The examination is within normal limits. Differential Diagnosis UTI versus pyelonephritis versus cervicitis versus ovarian torsion versus tubo- ovarian abscess Narrative Course 26-year-old female presents to the emergency department for pelvic pain, vomiting, intermittent fever since Wednesday, 3 days ago. She has reported some abnormal vaginal discharge. CBC, CMP, lipase, UA, urine test are ordered and pending. Patient is given normal saline 1 L IV bolus, morphine 4 mg IV, Zofran 4 mg IV. Pelvic ultrasound is ordered and pending. CBC is unremarkable. CMP is unremarkable. Lipase is 121. UA is negative. UPT is negative. US shows no abnormality is identified to explain the pelvic pain. The examination is within normal limits.. Wet prep is negative for clue cells, Trichomonas, yeast. Patient instructed to follow-up with process coordinator. She is to return her for any acute worsening of symptoms. She verbalizes agreement and understanding. She'll be discharged with a prescription for Zofran for nausea. The patient was discharged in stable condition with instructions, including return instructions and follow up instructions. Diagnosis Primary Impression: Pelvic pain in female Referrals: Dancing [facility] call for appointment Patient Instructions: General Instructions, Pelvic Pain in Women (ED) Additional Instructions: Take Zofran as directed as needed for nausea/vomiting. Take Bentyl as directed as needed for abdominal cramping. Follow-up with your process coordinator. Return to the emergency department for any acute worsening. Med/Other Pt SpecificInfo: Prescription(s) given Scripts Ondansetron Odt (Ondansetron Odt) 4 Mg Tab 4 MG SL Q6HR Y for Nausea/Vomiting, #12 TAB 0 Refills Prov: Marni Tracey 12/17/16 Dicyclomine (Bentyl) 10 Mg Cap 10 MG PO TID Y for ABDOMINAL CRAMPING for 12 Days, CAP 0 Refills Prov: Marni Tracey 12/17/16 Disposition: 01 DISCHARGE HOME Condition: Stable Marni Tracey Dec 17, 2016 16:53
[2016-12-17] MEDS ORDERED: ONDANSETRON HCL 4 MG/2 ML VIAL IVP ONE (17:00)
[2016-12-17] MEDS ORDERED: MORPHINE SULFATE 4 MG/ML INJ IV PUSH ONE (17:15)
[2016-12-17 17:37] LABS: AUTOMATED NEUTROPHIL # 4.3 TH/MM3 (1.8-7.7); BASOPHIL % 0.4 % (0.0-2.0); EOSINOPHIL # 0.1 TH/MM3 (0-0.4); EOSINOPHIL % 0.8 % (0.0-4.0); HEMO FLAGS DIFF FINAL; LYMPH % 40.2 % (9.0-44.0); LYMPHOCYTE # 3.4 TH/MM3 (1.0-4.8); MEAN CELL VOLUME 81.5 FL (80.0-100.0); MEAN CORPUSCULAR HEMOGLOBIN 27.1 PG (27.0-34.0); MEAN CORPUSCULAR HGB CONC 33.2 % (32.0-36.0); MONO % 7.6 % (0.0-8.0); PLATELET COUNT 338 TH/MM3 (150-450); RED BLOOD COUNT 4.79 MIL/MM3 (4.00-5.30); RED CELL DISTRIBUTION WIDTH 14.6 % (11.6-17.2); WHITE BLOOD COUNT 8.3 TH/MM3 (4.0-11.0)
[2016-12-17 17:55] LABS: ALT (GPT) 29 U/L (10-53); ANION GAP 8 MEQ/L (5-15); AST (GOT) 14 U/L (15-37); BICARBONATE 22.5 MEQ/L (21.0-32.0); BLOOD UREA NITROGEN 8 MG/DL (7-18); CHLORIDE 107 MEQ/L (98-107); GLOMERULAR FILTRATION RATE 102 ML/MIN (>89); POTASSIUM 3.9 MEQ/L (3.5-5.1); SODIUM (NA) 137 MEQ/L (136-145)
[2016-12-17 17:58] LABS: ALKALINE PHOSPHATASE 67 U/L (45-117); TOTAL BILIRUBIN ADULT 0.4 MG/DL (0.2-1.0)
[2016-12-17 18:05] LABS: BLOOD, URINE NEG (NEG); COMMENT (UR) CULT NOT INDICATED; CULTURE IF INDICATED CULT NOT INDICATED; GLUCOSE,URINE NEG (NEG); KETONE, URINE NEG (NEG); MUCUS URINE FEW /lpf (OCC); NITRITE,URINE NEG (NEG); PH, URINE 5.5 (5.0-8.5); SQUAMOUS EPITHELIAL CELL URINE 4 /hpf (0-5); URINE COLOR YELLOW (YELLW/STRAW)
--- NOTE | 2016-12-17 18:46 | RADRPT ---
EXAM DATE/TIME: 12/17/2016 17:11 [facility] COMPARISON: CT ABDOMEN & PELVIS W CONTRAST, November 01, 2016, 10:06. INDICATIONS : Pelvic pain. MEDICAL HISTORY : Gastroesophageal reflux disease. Pelvic abcess. IUD. Asthma. Dsypnea. Ulcer. Anxiety. Depression. SURGICAL HISTORY : Appendectomy. Cholecystectomy. ENCOUNTER: Initial ACUITY: 3 days PAIN SCORE: 9/10 LOCATION: Right pelvis MEASUREMENTS: UTERUS: 8.7 x 6.1 x 4.6 cm ENDOMETRIAL STRIPE: 3 mm RIGHT OVARY: 2.8 x 1.4 x 1.2 cm LEFT OVARY: 3.0 x 2.2 x 2.0 cm FINDINGS: UTERUS: The myometrium has homogeneous echotexture without mass. IUD is normally positioned within the endome trial canal. RIGHT OVARY: Ovary contains no mass or significant cystic lesion. Follicles are present. LEFT OVARY: Ovary contains no mass or significant cystic lesion. Follicles are present. MISCELLANEOUS: No free fluid. CONCLUSION: No abnormality is identified to explain the pelvic pain. The examination is within normal limits. Chester Sutton MD on December 17, 2016 at 18:36 Board Certified Radiologist. This report was verified electronically.
[2016-12-17] MEDS ORDERED: ONDANSETRON HCL 4 MG/2 ML VIAL IV PUSH ONE (19:00)
[2016-12-17] MEDS ORDERED: ONDA4TAB7 SL (19:16)
[2016-12-17] MEDS ORDERED: DICY10 PO (19:16)
[2016-12-17] MEDS ORDERED: PROCHLORPERAZINE INJ 10 MG/2 ML VIAL IV PUSH ONE (19:30)
[2016-12-17 23:17] LABS: CHLAMYDIA PCR NOT DETECTED (NOT DETECT); NEISSERIA PCR NOT DETECTED (NOT DETECT)
== END 2016-12-17 19:38 | disposition home or self-care (01) ==
LOC: NEPA 16:12
DX: R10.2 Pelvic and perineal pain (principal); R11.10 Vomiting, unspecified; R50.9 Fever, unspecified; N89.8 Other specified noninflammatory disorders of vagina; F41.9 Anxiety disorder, unspecified; F32.9 Major depressive disorder, single episode, unspecified; K21.9 Gastro-esophageal reflux disease without esophagitis; Z79.899 Other long term (current) drug therapy
CPT/HCPCS: 76830; 76856; 80053; 81001; 83690; 84703; 85025; 87210; 87491; 87591; 93975; 96361; 96374; 96375; 99285; J0780; J2270; J2405; J7030

== ENCOUNTER 2017-01-29 07:32 | Emergency (ER) | payer MEDICAID, OTHER ==
[~2017-01-29] VITALS: Ht 170.2 cm; Wt 110.0 kg
[~2017-01-29 07:32] MED LIST changes: +DICY10 PO; +ONDA4TAB7 SL
[2017-01-29 07:35] VITALS: BP 126/74; PULSE 80; RESP 14; TEMP 98.4; O2SAT 99
--- NOTE | 2017-01-29 07:52 | PD ---
HPI Chief Complaint: Eye Problems/Injury Time Seen by Provider: 07:41 Travel History International Travel<30 days: No Contact w/Intl Traveler<30days: No Traveled to known affect area: No History of Present Illness HPI 26-year-old Afro-[place] female presents to the emergency department with injury to the left eye. Patient states her 2-year-old accidentally caught her in the left eye with some keys yesterday. Patient states there was a film over the eye when she awoke this morning. 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 Patient is having difficulty with mild blurred vision and drainage. Left eye pain is 8 over 10. She has no other complaints. She is allergic to her lack. PFSH Past Medical History Anxiety: Yes Depression: Yes Cancer: No Cardiovascular Problems: No Diabetes: No Diminished Hearing: No Endocrine: No Gastrointestinal Disorders: Yes GERD: Yes Genitourinary: No Headaches: Yes Hypertension: No Immune Disorder: No Implanted Vascular Access Dvce: No Musculoskeletal: No Psychiatric: Yes Reproductive: Yes Immunizations Current: Yes Migraines: Yes Sickle Cell Disease: No Ulcer: Yes ?: Not LMP: 12/2016 : 4 Para: 1 Miscarriage: 2 : 1 Past Surgical History Abdominal Surgery: Yes (APPENDECTOMY) AICD: No Appendectomy: Yes Arteriovenous Shunt: No Cholecystectomy: Yes Insulin Pump: No Joint Replacement: No Pacemaker: No Other Surgery: Yes Social History Alcohol Use: No ( ) Tobacco Use: No Substance Use: No Allergies-Medications (Allergen,Severity, Reaction): Coded Allergies: ketorolac (Unverified Allergy, Unknown, 01/29/17) Reported Meds & Prescriptions Reported Meds & Active Scripts Active Ibuprofen 800 Mg Tab 800 Mg PO Q8H PRN Erythromycin Opth Oint 5 Mg/Gm Oint 1 Applic LEFT EYE Q4HR WHILE AWAKE NEB Ondansetron Odt 4 Mg Tab 4 Mg SL Q6HR PRN Bentyl (Dicyclomine HCl) 10 Mg Cap 10 Mg PO TID PRN 12 Days Protonix (Pantoprazole Sodium) 20 Mg Tab 20 Mg PO DAILY Review of Systems Except as stated in HPI: all other systems reviewed are Neg General / Constitutional: No: Fever Eyes: Positive: Blurred Vision, Photophobia, Drainage, Redness, Foreign Body Sensation, Pain, Tearing, No: Blind Spots, Visual changes, Blindness HENT: No: Headaches Cardiovascular: No: Chest Pain or Discomfort Respiratory: No: Shortness of Breath Gastrointestinal: No: Abdominal Pain Genitourinary: No: Dysuria Musculoskeletal: No: Pain Skin: No Rash Neurologic: No: Weakness Psychiatric: No: Depression Endocrine: No: Polydipsia Hematologic/Lymphatic: No: Easy Bruising Physical Exam Narrative GENERAL: Patient appears in mild to moderate distress. SKIN: Warm and dry. Normal color. Normal turgor. HEAD: Atraumatic. Normocephalic. EYES: Pupils equal and round. No scleral icterus. Left eye has mild to moderate injection and clear tearing drainage. Wood lamp exam with fluorescein shows no obvious corneal abrasion. ENT: No nasal bleeding or discharge. Mucous membranes pink and moist. Pharynx is clear. Airway is patent. NECK: Trachea midline. Supple. CARDIOVASCULAR: Regular rate and rhythm. RESPIRATORY: No accessory muscle use. MUSCULOSKELETAL: Extremities without clubbing, cyanosis, or edema. No obvious deformities. NEUROLOGICAL: Awake and alert. No obvious cranial nerve deficits. Motor grossly within normal limits. Five out of 5 muscle strength in the arms and legs. Normal speech. PSYCHIATRIC: Appropriate mood and affect; insight and judgment normal. Data Data Last Documented VS Vital Signs Date Time Temp Pulse Resp B/P (MAP) Pulse Ox O2 Delivery O2 Flow Rate FiO2 01/29/17 08:14 76 17 122/76 (91) 100 01/29/17 07:35 98.4 [facility] Medical Decision Making Medical Screen Exam Complete: Yes Emergency Medical Condition: Yes Differential Diagnosis Left eye injury. Corneal abrasion. Traumatic conjunctivitis. Narrative Course No obvious corneal abrasions noted on was lamp exam with fluorescein dye. Patient treated with erythromycin ophthalmic ointment every 4 hours while awake. Patient also given ibuprofen 800 mg 3 times daily with food #30. Patient is given a work note for today. Patient follow up if symptoms do not improve or worsen as needed. Diagnosis Primary Impression: Conjunctivitis, traumatic Referrals: [facility] Patient Instructions: Conjunctivitis (ED), General Instructions Departure Forms: Work Release Enter return to work date: Feb 01, 2017 Additional Instructions: No obvious corneal abrasions noted on was lamp exam with fluorescein dye. Patient treated with erythromycin ophthalmic ointment every 4 hours while awake. Patient also given ibuprofen 800 mg 3 times daily with food #30. Patient is given a work note for today. Patient follow up if symptoms do not improve or worsen as needed. Med/Other Pt SpecificInfo: Prescription(s) given Scripts Ibuprofen (Ibuprofen) 800 Mg Tab 800 MG PO Q8H Y for PAIN SCALE 5 TO 10, #30 TAB 0 Refills Prov: Amanuel Simons MD 01/29/17 Erythromycin Opth Oint (Erythromycin Opth Oint) 5 Mg/Gm Oint 1 APPLIC LEFT EYE Q4HR WHILE AWAKE NEB for Infection, #1 TUBE 0 Refills Prov: Amanuel Simons MD 01/29/17 Disposition: 01 DISCHARGE HOME Condition: Stable Roly Russell Jan 29, 2017 07:52
[2017-01-29] MEDS ORDERED: IBUP800T23 PO (07:54)
[2017-01-29] MEDS ORDERED: ERYTOIN10 LEFT EYE (07:54)
[2017-01-29 08:14] VITALS: BP 122/76
== END 2017-01-29 08:29 | disposition home or self-care (01) ==
LOC: NEPD 07:32
DX: H10.9 Unspecified conjunctivitis (principal); F41.9 Anxiety disorder, unspecified; F32.9 Major depressive disorder, single episode, unspecified; K21.9 Gastro-esophageal reflux disease without esophagitis; Z79.899 Other long term (current) drug therapy
CPT/HCPCS: 99283

== ENCOUNTER 2017-02-02 12:15 | Emergency (ER) | payer MEDICAID ==
[~2017-02-02] VITALS: Ht 170.2 cm; Wt 110.0 kg
[~2017-02-02 12:15] MED LIST changes: +ERYTOIN10 LEFT EYE; +IBUP800T23 PO
[2017-02-02 12:17] VITALS: BP 133/94; PULSE 89; RESP 18; TEMP 98.4; O2SAT 98
--- NOTE | 2017-02-02 12:27 | PD ---
Physical Exam Date Seen by Provider: Feb 02, 2017 Time Seen by Provider: 12:25 Narrative 26 yo female here for eye blurry vision. Had injury with keys by daughter to the eye. Sent here with script from PCP who saw her today to come her. No other medical issues. Pain and drainage to eye. Patient was originally seen in this hospital on the day this happened. 4/10 pain. Vitals are stable in triage. Awaiting bed placement. Data Data Last Documented VS Vital Signs Date Time Temp Pulse Resp B/P (MAP) Pulse Ox O2 Delivery O2 Flow Rate FiO2 02/02/17 12:17 98.4 89 18 133/94 (107) 98 Room Air [facility] Medical Record Reviewed: Yes Supervised Visit with GILES: No Marcelo Wright Feb 02, 2017 12:27
[2017-02-02] MEDS ORDERED: PROPARACAINE HCL 0.5% OPHT SOLN 15 ML BTL LEFT EYE ONE (13:30)
--- NOTE | 2017-02-02 14:51 | PD ---
HPI Chief Complaint: Eye Problems/Injury Time Seen by Provider: 14:45 Travel History International Travel<30 days: No Contact w/Intl Traveler<30days: No Traveled to known affect area: No History of Present Illness HPI 26-year-old female presents to the emergency Department with complaint of continued left eye pain, blurriness, drainage 4 days after an eye injury with a dhillon and a fingernail in the same day. She was evaluated here and was treated for traumatic conjunctivitis and was given erythromycin ointment which she has been using as directed. She followed up with her primary care provider today and was told to come back to the emergency department for reevaluation. Reports photophobia. Denies fever, vomiting. Says eye pain is worse when she looks down. Has no other medical complaints. Symptoms are moderate in severity. Allergies to Toradol. No other modifying factors or associated signs and symptoms. PFSH Past Medical History Anxiety: Yes Depression: Yes Cancer: No Cardiovascular Problems: No Diabetes: No Diminished Hearing: No Endocrine: No Gastrointestinal Disorders: Yes GERD: Yes Genitourinary: No Headaches: Yes Hypertension: No Immune Disorder: No Implanted Vascular Access Dvce: No Musculoskeletal: No Psychiatric: Yes Reproductive: Yes Immunizations Current: Yes Migraines: Yes Sickle Cell Disease: No Ulcer: Yes ?: Not LMP: 01/10/17 : 4 Para: 1 Miscarriage: 2 : 1 Past Surgical History Abdominal Surgery: Yes (APPENDECTOMY) AICD: No Appendectomy: Yes Arteriovenous Shunt: No Cholecystectomy: Yes Insulin Pump: No Joint Replacement: No Pacemaker: No Other Surgery: Yes Social History Alcohol Use: No ( ) Tobacco Use: No Substance Use: No Allergies-Medications (Allergen,Severity, Reaction): Coded Allergies: ketorolac (Verified Allergy, Unknown, 02/02/17) Reported Meds & Prescriptions Reported Meds & Active Scripts Active Lortab (Hydrocodone-Acetaminophen) 5-325 Mg Tab 1 Tab PO Q4H PRN Ibuprofen 800 Mg Tab 800 Mg PO Q8H PRN Erythromycin Opth Oint 5 Mg/Gm Oint 1 Applic LEFT EYE Q4HR WHILE AWAKE NEB Ondansetron Odt 4 Mg Tab 4 Mg SL Q6HR PRN Bentyl (Dicyclomine HCl) 10 Mg Cap 10 Mg PO TID PRN 12 Days Protonix (Pantoprazole Sodium) 20 Mg Tab 20 Mg PO DAILY Review of Systems Except as stated in HPI: all other systems reviewed are Neg Physical Exam Narrative GENERAL: Well-nourished, well-developed female patient, in no acute distress SKIN: Warm and dry. HEAD: Atraumatic. Normocephalic. EYES: Pupils equal and round at 3 mm with brisk reaction. PERRLA. EOMI. left lid eversion with no foreign body noted. Left eye without scleral erythema or lid edema. No orbital tenderness, erythema or cellulitis. Left eye with photophobia. No consensual photophobia. No scleral icterus. Clear drainage. Post lamp exam normal. Tonometer reading of the left eye is 19. ENT: Mucosa pink and moist. Airway patent. NECK: Trachea midline. CARDIOVASCULAR: Regular rate. RESPIRATORY: No accessory muscle use. . GASTROINTESTINAL: Obese.. NEUROLOGICAL: Awake and alert. Oriented 3. No obvious cranial nerve deficits. Motor grossly within normal limits. Normal speech. PSYCHIATRIC: Appropriate mood and affect; insight and judgment normal. Data Data Last Documented VS Vital Signs Date Time Temp Pulse Resp B/P (MAP) Pulse Ox O2 Delivery O2 Flow Rate FiO2 02/02/17 15:01 02/02/17 12:17 98.4 89 18 98 Room Air Orders Orders Proparacaine 0.5% Opth Soln ([place] 0.5 (02/02/17 13:30) Acetamin-Hydrocod 325-5 Mg ([place] 5-325 (02/02/17 15:00) Ed Discharge Order (02/02/17 14:59) MDM Medical Decision Making Medical Screen Exam Complete: Yes Emergency Medical Condition: Yes Medical Record Reviewed: Yes Differential Diagnosis Corneal abrasion, eye contusion, foreign body Narrative Course 26-year-old female sent by her primary care provider for reevaluation of continued left eye pain, blurriness, and drainage since she was seen last on January 29 after I injury. She has been using erythromycin ointment as prescribed. Post lamp exam is unremarkable. Tonometry reading is 19. Call placed to on-call wet pan mixer. 1455: I spoke with Dr. Noam Dawkins, ophthalmology, and she recommended the patient to call and make an appointment to follow-up in her office. Lortab administered in the ER. Lortab prescribed for home. Instructed patient to call Dr. Noam Dawkins's office or wet pan mixer of choice for follow-up. Dr. Noam Dawkins's information is provided in the discharge instructions. Patient verbalizes understanding and agreement. Instructed patient to continue erythromycin ointment as prescribed. Instructed patient to follow up with primary care provider. Patient verbalizes understanding and agreement with treatment plan. Patient is medically cleared and stable for discharge. Discussed reasons to return to the emergency department. Patient agrees with treatment plan. The patients vital signs are stable and the patient is stable for outpatient follow-up and treatment. Patient discharged home, stable and in no acute distress. Diagnosis Primary Impression: Left eye pain Referrals: Lorraine Dawkins MDcasing in line feeder Primary Care Physician Patient Instructions: Eye Pain (ED), General Instructions Departure Forms: Tests/Procedures, Work Release Enter return to work date: Feb 06, 2017 Additional Instructions: Lortab as prescribed as needed for pain Ibuprofen as directed and as needed for pain and inflammation Cool compresses to the eye to decrease pain Follow-up with Dr. Noam Dawkins; her information is in her discharge instructions; call to make an appointment or follow-up with wet pan mixer of choice Follow-up with primary care provider Return to the emergency department immediately if worsening of symptoms Med/Other Pt SpecificInfo: Prescription(s) given Scripts Hydrocodone-Acetaminophen (Lortab) 5-325 Mg Tab 1 TAB PO Q4H Y for PAIN, #10 TAB 0 Refills Prov: Beth Howard 02/02/17 Disposition: 01 DISCHARGE HOME Condition: Stable Beth Howard Feb 02, 2017 14:51
[2017-02-02] MEDS ORDERED: HYDR-3533 PO (14:58)
[2017-02-02] MEDS ORDERED: ACETAMINOPHEN/HYDROcodone 325 MG/5 MG TAB PO ONE (15:00)
== END 2017-02-02 15:07 | disposition home or self-care (01) ==
LOC: NEPK 12:15
DX: H57.12 Ocular pain, left eye (principal); H57.8 Other specified disorders of eye and adnexa; Z86.59 Personal history of other mental and behavioral disorders; Z87.19 Personal history of other diseases of the digestive system; Z87.42 Personal history of other diseases of the female genital tract; Z86.69 Personal history of other diseases of the nervous system and sense organs
CPT/HCPCS: 99283

== ENCOUNTER 2017-04-19 23:06 | Emergency (ER) | payer MEDICAID ==
[~2017-04-19] VITALS: Ht 170.2 cm; Wt 110.0 kg
[~2017-04-19 23:06] MED LIST changes: +HYDR-3533 PO; +IBUP1TAB7 PO; -IBUP800T23 PO
[2017-04-19 23:11] VITALS: BP 132/85; TEMP 100.4; O2SAT 96
[2017-04-19 23:42] VITALS: BP 122/58; PULSE 104; RESP 20; O2SAT 97
[2017-04-19] MEDS ORDERED: SODIUM CHLORIDE 0.9% FLUSH 10 ML FLUSH IV FLUSH PRN (23:45)
[2017-04-19] MEDS ORDERED: SODIUM CHLOR 0.9% 1000 ML INJ 1,000 ML IV SCH (23:45)
[2017-04-19] MEDS ORDERED: MORPHINE SULFATE 2 MG/ML INJ IV PUSH ONE (23:45)
[2017-04-19] MEDS ORDERED: ONDANSETRON HCL 4 MG/2 ML VIAL IV ONE (23:45)
--- NOTE | 2017-04-19 23:48 | PD ---
HPI Chief Complaint: GI Complaint Time Seen by Provider: 23:36 Travel History International Travel<30 days: No Contact w/Intl Traveler<30days: No Traveled to known affect area: No History of Present Illness HPI This is a 26-year-old female who presents to the emergency department with nausea vomiting and diarrhea that started 2 days ago, constant, moderate severity, associated with epigastric sharp stabbing pain. She says her stools have been watery and copious she can't count how many times she had used the bathroom today. They've been nonbloody. She's also vomited multiple times. She's had fevers and chills. She says her child is sick with similar symptoms. She denies any recent antibiotic use. She's had an appendectomy and a cholecystectomy in the past. PFSH Past Medical History Anxiety: Yes Depression: Yes Cancer: No Cardiovascular Problems: No Diabetes: No Diminished Hearing: No Endocrine: No Gastrointestinal Disorders: Yes GERD: Yes Genitourinary: No Headaches: Yes Hypertension: No Immune Disorder: No Implanted Vascular Access Dvce: No Musculoskeletal: No Psychiatric: Yes Reproductive: Yes Immunizations Current: Yes Migraines: Yes Sickle Cell Disease: No Ulcer: Yes Tetanus Vaccination: < 5 Years Influenza Vaccination: No ?: Not LMP: 04/06/17 : 4 Para: 1 Miscarriage: 2 : 1 Past Surgical History Abdominal Surgery: Yes (APPENDECTOMY) AICD: No Appendectomy: Yes Arteriovenous Shunt: No Cholecystectomy: Yes Insulin Pump: No Joint Replacement: No Pacemaker: No Other Surgery: Yes Social History Alcohol Use: No ( ) Tobacco Use: No Substance Use: No Allergies-Medications (Allergen,Severity, Reaction): Coded Allergies: ketorolac (Verified Allergy, Unknown, 04/19/17) Reported Meds & Prescriptions Reported Meds & Active Scripts Active Lortab (Hydrocodone-Acetaminophen) 5-325 Mg Tab 1 Tab PO Q4H PRN Ibuprofen 800 Mg Tab 800 Mg PO Q8H PRN Erythromycin Opth Oint 5 Mg/Gm Oint 1 Applic LEFT EYE Q4HR WHILE AWAKE NEB Ondansetron Odt 4 Mg Tab 4 Mg SL Q6HR PRN Bentyl (Dicyclomine HCl) 10 Mg Cap 10 Mg PO TID PRN 12 Days Protonix (Pantoprazole Sodium) 20 Mg Tab 20 Mg PO DAILY Review of Systems Except as stated in HPI: all other systems reviewed are Neg Physical Exam Narrative GENERAL:Well appearing, no acute distress SKIN: Focused skin assessment warm and dry. HEAD: Atraumatic. Normocephalic. EYES: Pupils equal and round. No injection or drainage. ENT: Moist mucous membranes NECK: Trachea midline. CARDIOVASCULAR: Regular rate and rhythm. No murmur appreciated. RESPIRATORY: Clear to auscultation. Breath sounds equal bilaterally. GASTROINTESTINAL: Abdomen soft, tender to palpation in the epigastrium with no rebound or guarding. MUSCULOSKELETAL: No obvious deformities. NEUROLOGICAL: Awake and alert. No obvious cranial nerve deficits. Moving all extremities. PSYCHIATRIC: Appropriate mood and affect; insight and judgment normal. Data Data Last Documented VS Vital Signs Date Time Temp Pulse Resp B/P (MAP) Pulse Ox O2 Delivery O2 Flow Rate FiO2 04/20/17 01:15 92 18 111/62 (78) 99 Room Air 04/19/17 23:11 100.4 Orders Orders Complete Blood Count With Diff (04/19/17 23:41) Comprehensive Metabolic Panel (04/19/17 23:41) Lipase (04/19/17 23:41) Iv Access Insert/Monitor (04/19/17 23:41) Ecg Monitoring (04/19/17 23:41) Oximetry (04/19/17 23:41) Sodium Chloride 0.9% Flush (Ns Flush) (04/19/17 23:45) Sodium Chlor 0.9% 1000 Ml Inj (Ns 1000 M (04/19/17 23:45) Ondansetron Inj (Zofran Inj) (04/19/17 23:45) Morphine Inj (Morphine Inj) (04/19/17 23:45) Ct Brain W/O Iv Contrast(Rout) (04/20/17 ) Ed Urine Pregnancytest Poc (04/20/17 00:21) Promethazine Inj (Phenergan Inj) (04/20/17 01:15) Al-Mag Hy-Si 40-40-4 Mg/Ml Liq (Mag-Al P (04/20/17 01:30) Lidocaine 2% Viscous (Xylocaine 2% Visco (04/20/17 01:30) Tramadol (Ultram) (04/20/17 02:00) Labs Laboratory Tests Test 04/19/17 23:50 White Blood Count 7.0 TH/MM3 Red Blood Count 4.84 MIL/MM3 Hemoglobin 13.4 GM/DL Hematocrit 39.3 % Mean Corpuscular Volume 81.0 FL Mean Corpuscular Hemoglobin 27.7 PG Mean Corpuscular Hemoglobin Concent 34.1 % Red Cell Distribution Width 13.9 % Platelet Count 331 TH/MM3 Mean Platelet Volume 8.2 FL Neutrophils (%) (Auto) 72.2 % Lymphocytes (%) (Auto) 20.5 % Monocytes (%) (Auto) 6.5 % Eosinophils (%) (Auto) 0.4 % Basophils (%) (Auto) 0.4 % Neutrophils # (Auto) 5.0 TH/MM3 Lymphocytes # (Auto) 1.4 TH/MM3 Monocytes # (Auto) 0.5 TH/MM3 Eosinophils # (Auto) 0.0 TH/MM3 Basophils # (Auto) 0.0 TH/MM3 CBC Comment DIFF FINAL Differential Comment Blood Urea Nitrogen 6 MG/DL Creatinine 0.80 MG/DL Random Glucose 113 MG/DL Total Protein 7.9 GM/DL Albumin 3.7 GM/DL Calcium Level 8.6 MG/DL Alkaline Phosphatase 80 U/L Aspartate Amino Transf (AST/SGOT) 13 U/L Alanine Aminotransferase (ALT/SGPT) 27 U/L Total Bilirubin 0.5 MG/DL Sodium Level 137 MEQ/L Potassium Level 3.8 MEQ/L Chloride Level 107 MEQ/L Carbon Dioxide Level 23.8 MEQ/L Anion Gap 6 MEQ/L Estimat Glomerular Filtration Rate 105 ML/MIN Lipase 100 U/L MDM Medical Decision Making Medical Screen Exam Complete: Yes Emergency Medical Condition: Yes Interpretation(s) Temperature is 100.4, mild tachycardia No leukocytosis Electrolytes are reassuring Lipase is normal CT head: No intracranial hemorrhage Differential Diagnosis Gastroenteritis, dehydration, electrolyte abnormality, gastritis, peptic ulcer disease, intracranial hemorrhage Narrative Course This is a 26-year-old female who presents to the emergency department with nausea vomiting and diarrhea. She says she threw up so much that she had an episode of passing out and hit her head prior to arrival. She was placed on a monitor and an IV was established. Labs are obtained which are reassuring. She was quite tender in the epigastrium. She's had a cholecystectomy and appendectomy so I doubt a surgical etiology of her symptoms. Patient feels better after IV fluids, GI cocktail and antiemetics. I think she can be discharged home. Diagnosis Primary Impression: Gastroenteritis Patient Instructions: General Instructions Additional Instructions: If you develop lightheadedness, dizziness, persistent vomiting, inability to eat , or severe abdominal pain return to the emergency department. Followup with your primary care physician in 2-3 days if your symptoms have not resolved. Wash your hands agressively after using the restroom as to not spread your illness to others. Do not return to work until your symptoms have resolved. Take Zofran as needed for nausea. Med/Other Pt SpecificInfo: Prescription(s) given Scripts Ranitidine (Ranitidine) 150 Mg Tab 150 MG PO BID for Heartburn Management, #60 TAB 0 Refills Prov: Brigitte Garcia MD 04/20/17 Loperamide (Loperamide) 2 Mg Cap 2 MG PO DIRECTED Y for DIARRHEA, #15 CAP 0 Refills One capsule after each loose stool. Not to exceed 8 capsules per day. Prov: Brigitte Garcia MD 04/20/17 Ondansetron Odt (Zofran Odt) 4 Mg Tab 4 MG SL Q6HR Y for Nausea/Vomiting, #15 TAB 0 Refills Prov: Brigitte Garcia MD 04/20/17 Disposition: 01 DISCHARGE HOME Condition: Stable Brigitte Garcia MD Apr 19, 2017 23:48
[2017-04-20 00:04] LABS: BASOPHIL % 0.4 % (0.0-2.0); EOSINOPHIL % 0.4 % (0.0-4.0); HEMATOCRIT 39.3 % (35.0-46.0); HEMOGLOBIN 13.4 GM/DL (11.6-15.3); LYMPH % 20.5 % (9.0-44.0); LYMPHOCYTE # 1.4 TH/MM3 (1.0-4.8); MEAN CORPUSCULAR HEMOGLOBIN 27.7 PG (27.0-34.0); MEAN CORPUSCULAR HGB CONC 34.1 % (32.0-36.0); MEAN PLATELET VOLUME 8.2 FL (7.0-11.0); MONO % 6.5 % (0.0-8.0); MONOCYTE # 0.5 TH/MM3 (0-0.9); NEUT % 72.2 % (16.0-70.0); PLATELET COUNT 331 TH/MM3 (150-450); RED BLOOD COUNT 4.84 MIL/MM3 (4.00-5.30); RED CELL DISTRIBUTION WIDTH 13.9 % (11.6-17.2)
[2017-04-20 00:17] LABS: ALBUMIN 3.7 GM/DL (3.4-5.0); ALT (GPT) 27 U/L (10-53); AST (GOT) 13 U/L (15-37); BICARBONATE 23.8 MEQ/L (21.0-32.0); BLOOD UREA NITROGEN 6 MG/DL (7-18); CALCIUM 8.6 MG/DL (8.5-10.1); CHLORIDE 107 MEQ/L (98-107); GLOMERULAR FILTRATION RATE 105 ML/MIN (>89); GLUCOSE,RANDOM 113 MG/DL (74-106); LIPASE 100 U/L (73-393); SODIUM (NA) 137 MEQ/L (136-145)
[2017-04-20 00:19] LABS: ALKALINE PHOSPHATASE 80 U/L (45-117); TOTAL BILIRUBIN ADULT 0.5 MG/DL (0.2-1.0); TOTAL PROTEIN 7.9 GM/DL (6.4-8.2)
--- NOTE | 2017-04-20 01:10 | RADRPT ---
EXAM DATE/TIME: 04/20/2017 00:43 [facility] COMPARISON: No previous studies available for comparison. INDICATIONS : Syncope; fall. RADIATION DOSE: 56.35 CTDIvol (mGy) MEDICAL HISTORY : None SURGICAL HISTORY : Cholecystectomy. Appendectomy. ENCOUNTER: Initial ACUITY: 1 day PAIN SCALE: 7/10 LOCATION: Bilateral cranial TECHNIQUE: Multiple contiguous axial images were obtained of the head. Using automated exposure control and adj ustment of the mA and/or kV according to patient size, radiation dose was kept as low as reasonably a chievable to obtain optimal diagnostic quality images. DICOM format image data is available electro nically for review and comparison. FINDINGS: There is no evidence for intracranial hemorrhage, mass effect, mass lesions, edema, or extra-axial fl uid collections. The visualized bony structures appear intact. The ventricles are normal size for t he patient's age. There are no signs of acute infarction for technique. CONCLUSION: Unremarkable study. Colin Millan MD on April 20, 2017 at 1:07 Board Certified Radiologist. This report was verified electronically.
[2017-04-20 01:15] VITALS: BP 111/62; PULSE 92; RESP 18; O2SAT 99
[2017-04-20] MEDS ORDERED: PROMETHAZINE INJ 25 MG/ML VIAL IM ONE (01:15)
[2017-04-20] MEDS ORDERED: LIDOCAINE VISCOUS 2% SOLN 15 ML UDC PO ONE (01:30)
[2017-04-20] MEDS ORDERED: ALUMINUM/MAGNESIUM/SIMETH 30 ML CUP PO ONE (01:30)
[2017-04-20] MEDS ORDERED: traMADol HCL 50 MG TAB PO ONE (02:00)
[2017-04-20] MEDS ORDERED: RANI150T PO (02:12)
[2017-04-20] MEDS ORDERED: LOPE2CAP PO (02:12)
[2017-04-20] MEDS ORDERED: ZOFR4TAB3 SL (02:12)
== END 2017-04-20 02:38 | disposition home or self-care (01) ==
LOC: NEPC 23:06
DX: K52.9 Noninfective gastroenteritis and colitis, unspecified (principal); F32.9 Major depressive disorder, single episode, unspecified; F41.9 Anxiety disorder, unspecified; K21.9 Gastro-esophageal reflux disease without esophagitis
CPT/HCPCS: 70450; 80053; 83690; 84703; 85025; 96361; 96372; 96374; 96375; 99284; J2270; J2405; J2550; J7030

== ENCOUNTER 2017-05-31 09:16 | Emergency (ER) | payer MEDICAID ==
[~2017-05-31] VITALS: Ht 170.2 cm; Wt 100.0 kg
[~2017-05-31 09:16] MED LIST changes: +LOPE2CAP PO; +RANI150T PO; +ZOFR4TAB3 SL
[2017-05-31 09:18] VITALS: BP 129/68; PULSE 79; RESP 18; TEMP 97.5; O2SAT 98
[2017-05-31] MEDS ORDERED: SODIUM CHLOR 0.9% 1000 ML INJ 1,000 ML IV SCH (10:01)
--- NOTE | 2017-05-31 10:03 | PD ---
HPI Chief Complaint: Abdominal Pain Time Seen by Provider: 09:56 Travel History International Travel<30 days: No Contact w/Intl Traveler<30days: No Traveled to known affect area: No History of Present Illness HPI 26-year-old female presents emergency department with 3 day history of nausea, vomiting, body aches, and epigastric pain. Patient states she did eat at a [employer] restaurant Wednesday and symptoms started the next day. They have been ongoing for the last vomiting episode 30 minutes prior to arrival. Patient denies diarrhea but has not had a bowel movement since Wednesday. Epigastric pain is about an 8 out of 10. Patient has had her gallbladder and appendix removed in the past. She denies urinary or vaginal symptoms. Patient denies chest pain or shortness of breath. She has no upper respiratory symptoms. She is allergic to Toradol. PFSH Past Medical History Anxiety: Yes Depression: Yes Cancer: No Cardiovascular Problems: No Diabetes: No Diminished Hearing: No Endocrine: No Gastrointestinal Disorders: Yes GERD: Yes Genitourinary: No Headaches: Yes Hypertension: No Immune Disorder: No Implanted Vascular Access Dvce: No Musculoskeletal: No Psychiatric: Yes Reproductive: Yes Immunizations Current: Yes Migraines: Yes Sickle Cell Disease: No Ulcer: Yes ?: Not LMP: 05/15/17 : 4 Para: 1 Miscarriage: 2 : 1 Past Surgical History Abdominal Surgery: Yes (APPENDECTOMY) AICD: No Appendectomy: Yes Arteriovenous Shunt: No Cholecystectomy: Yes Insulin Pump: No Joint Replacement: No Pacemaker: No Other Surgery: Yes Social History Alcohol Use: No ( ) Tobacco Use: No Substance Use: No Allergies-Medications (Allergen,Severity, Reaction): Coded Allergies: ketorolac (Verified Allergy, Unknown, 04/19/17) Reported Meds & Prescriptions Reported Meds & Active Scripts Active Ranitidine (Ranitidine HCl) 150 Mg Tab 150 Mg PO BID Ondansetron Odt 4 Mg Tab 4 Mg SL Q6HR PRN Bentyl (Dicyclomine HCl) 10 Mg Cap 10 Mg PO TID PRN 12 Days Loperamide (Loperamide HCl) 2 Mg Cap 2 Mg PO DIRECTED PRN One capsule after each loose stool. Not to exceed 8 capsules per day. Zofran Odt (Ondansetron Odt) 4 Mg Tab 4 Mg SL Q6HR PRN Lortab (Hydrocodone-Acetaminophen) 5-325 Mg Tab 1 Tab PO Q4H PRN Ibuprofen 800 Mg Tab 800 Mg PO Q8H PRN Erythromycin Opth Oint 5 Mg/Gm Oint 1 Applic LEFT EYE Q4HR WHILE AWAKE NEB Protonix (Pantoprazole Sodium) 20 Mg Tab 20 Mg PO DAILY Review of Systems Except as stated in HPI: all other systems reviewed are Neg General / Constitutional: Positive: Fever, Chills Eyes: No: Visual changes HENT: No: Headaches Cardiovascular: No: Chest Pain or Discomfort Respiratory: No: Shortness of Breath Gastrointestinal: Positive: Nausea, Vomiting, Abdominal Pain, No: Diarrhea Genitourinary: No: Urgency, Frequency, Dysuria, Pelvic Pain, Flank Pain, Discharge Musculoskeletal: No: Pain Skin: No Rash Neurologic: No: Weakness Psychiatric: No: Depression Endocrine: No: Polydipsia Hematologic/Lymphatic: No: Easy Bruising Physical Exam Narrative GENERAL: Patient appears ill but not septic. SKIN: Warm and dry. Decreased pallor. Decreased turgor without tenting. HEAD: Atraumatic. Normocephalic. EYES: Pupils equal and round. No scleral icterus. No injection or drainage. ENT: No nasal bleeding or discharge. Mucous membranes pink and dry. Pharynx is clear. Airway is patent. TMs are normal. NECK: Trachea midline. Supple nontender CARDIOVASCULAR: Regular rate and rhythm. RESPIRATORY: No accessory muscle use. Clear to auscultation. Breath sounds equal bilaterally. GASTROINTESTINAL: Abdomen soft, moderate epigastric tenderness, nondistended. No point tenderness or rebound. No CVA tenderness. Hepatic and splenic margins not palpable. Somewhat hyperactive bowel sounds throughout all quadrants. MUSCULOSKELETAL: Extremities without clubbing, cyanosis, or edema. No obvious deformities. NEUROLOGICAL: Awake and alert. No obvious cranial nerve deficits. Motor grossly within normal limits. Five out of 5 muscle strength in the arms and legs. Normal speech. PSYCHIATRIC: Appropriate mood and affect; insight and judgment normal. Data Data Last Documented VS Vital Signs Date Time Temp Pulse Resp B/P (MAP) Pulse Ox O2 Delivery O2 Flow Rate FiO2 05/31/17 11:13 65 15 99 Room Air 05/31/17 09:18 97.5 Orders Orders Complete Blood Count With Diff (05/31/17 10:01) Comprehensive Metabolic Panel (05/31/17 10:01) Lipase (05/31/17 10:01) Lactic Acid (05/31/17 10:01) Prothrombin Time / Inr (Pt) (05/31/17 10:01) Act Partial Throm Time (Ptt) (05/31/17 10:01) Urinalysis - C+S If Indicated (05/31/17 10:01) Iv Access Insert/Monitor (05/31/17 10:01) Ecg Monitoring (05/31/17 10:01) Oximetry (05/31/17 10:01) NPO (05/31/17 10:01) Ondansetron Inj (Zofran Inj) (05/31/17 10:15) Sodium Chlor 0.9% 1000 Ml Inj (Ns 1000 M (05/31/17 10:01) Sodium Chloride 0.9% Flush (Ns Flush) (05/31/17 10:15) Famotidine Inj (Pepcid Inj) (05/31/17 10:15) Al-Mag Hy-Si 40-40-4 Mg/Ml Liq (Mag-Al P (05/31/17 10:15) Lidocaine 2% Viscous (Xylocaine 2% Visco (05/31/17 10:15) Ed Urine Pregnancytest Poc (05/31/17 10:01) Sodium Chloride 0.9% Flush (Ns Flush) (05/31/17 12:00) Dicyclomine Inj (Bentyl Inj) (05/31/17 12:00) Labs Laboratory Tests Test 05/31/17 10:15 05/31/17 12:00 White Blood Count 7.5 TH/MM3 Red Blood Count 4.63 MIL/MM3 Hemoglobin 12.8 GM/DL Hematocrit 37.7 % Mean Corpuscular Volume 81.5 FL Mean Corpuscular Hemoglobin 27.6 PG Mean Corpuscular Hemoglobin Concent 33.9 % Red Cell Distribution Width 14.3 % Platelet Count 327 TH/MM3 Mean Platelet Volume 7.8 FL Neutrophils (%) (Auto) 45.5 % Lymphocytes (%) (Auto) 46.9 % Monocytes (%) (Auto) 5.9 % Eosinophils (%) (Auto) 1.2 % Basophils (%) (Auto) 0.5 % Neutrophils # (Auto) 3.4 TH/MM3 Lymphocytes # (Auto) 3.5 TH/MM3 Monocytes # (Auto) 0.4 TH/MM3 Eosinophils # (Auto) 0.1 TH/MM3 Basophils # (Auto) 0.0 TH/MM3 CBC Comment DIFF FINAL Differential Comment Blood Urea Nitrogen 8 MG/DL Creatinine 0.80 MG/DL Random Glucose 127 MG/DL Total Protein 7.4 GM/DL Albumin 3.4 GM/DL Calcium Level 8.8 MG/DL Alkaline Phosphatase 64 U/L Aspartate Amino Transf (AST/SGOT) 15 U/L Alanine Aminotransferase (ALT/SGPT) 29 U/L Total Bilirubin 0.4 MG/DL Sodium Level 137 MEQ/L Potassium Level 4.8 MEQ/L Chloride Level 107 MEQ/L Carbon Dioxide Level 23.1 MEQ/L Anion Gap 7 MEQ/L Estimat Glomerular Filtration Rate 105 ML/MIN Lipase 98 U/L Urine Color YELLOW Urine Turbidity HAZY Urine pH 5.5 Urine Specific [place] 1.018 Urine Protein TRACE mg/dL Urine Glucose (UA) NEG mg/dL Urine Ketones NEG mg/dL Urine Occult Blood NEG Urine Nitrite NEG Urine Bilirubin NEG Urine Urobilinogen LESS THAN 2.0 MG/DL Urine Leukocyte Esterase NEG Urine RBC LESS THAN 1 /hpf Urine WBC 2 /hpf Urine Squamous Epithelial Cells 5 /hpf Urine Bacteria OCC /hpf Urine Hyaline Casts 1 /lpf Urine Mucus MANY /lpf Microscopic Urinalysis Comment CULT NOT INDICATED MDM Medical Decision Making Medical Screen Exam Complete: Yes Emergency Medical Condition: Yes Differential Diagnosis Gastroenteritis. Acute nausea vomiting. Possible food poisoning. Gastritis. Narrative Course Patient is medically stable at time of exam. Labs ordered including CBC, CMP, lipase, urinalysis. Lactic acid. IV access is obtained and the patient is given 4 mg Zofran IV as well as 1000 mL 's normal saline bolus. Patient is given 20 mg Pepcid IV as well. Patient is given a GI cocktail. Labs show CBC unremarkable with increased lymphocytes. Chemistries unremarkable except for random glucose of 127. Urinalysis is unremarkable as well. Patient will be discharged home with Zofran 4 mg every 6 hours as needed #12. Patient also given Bentyl 10 mg up to 3 times daily as needed cramping #12. As well as ranitidine 150 mg twice daily #60 Patient is to follow with local primary care physician or control systems technician as needed. Diagnosis Primary Impression: Gastritis Qualified Codes: K29.70 - Gastritis, unspecified, without bleeding Patient Instructions: Acute Nausea and Vomiting (ED), General Instructions Additional Instructions: Labs show CBC unremarkable with increased lymphocytes. Chemistries unremarkable except for random glucose of 127. Urinalysis is unremarkable as well. Patient will be discharged home with Zofran 4 mg every 6 hours as needed #12. Patient also given Bentyl 10 mg up to 3 times daily as needed cramping #12. As well as ranitidine 150 mg twice daily #60 Patient is to follow with local primary care physician or control systems technician as needed. Med/Other Pt SpecificInfo: Prescription(s) given Scripts Ranitidine (Ranitidine) 150 Mg Tab 150 MG PO BID for Heartburn Management, #60 TAB 0 Refills Prov: Brigitte Garcia MD 05/31/17 Ondansetron Odt (Ondansetron Odt) 4 Mg Tab 4 MG SL Q6HR Y for Nausea/Vomiting, #12 TAB 0 Refills Prov: Brigitte Garcia MD 05/31/17 Dicyclomine (Bentyl) 10 Mg Cap 10 MG PO TID Y for ABDOMINAL CRAMPING for 12 Days, CAP 0 Refills Prov: Brigitte Garcia MD 05/31/17 Disposition: 01 DISCHARGE HOME Condition: Stable Roly Russell May 31, 2017 10:03
[2017-05-31] MEDS ORDERED: LIDOCAINE VISCOUS 2% SOLN 15 ML UDC PO ONE (10:15)
[2017-05-31] MEDS ORDERED: SODIUM CHLORIDE 0.9% FLUSH 10 ML FLUSH IV FLUSH PRN ×2 (10:15→12:00)
[2017-05-31] MEDS ORDERED: FAMOTIDINE 20 MG/2 ML VIAL IV PUSH ONE (10:15)
[2017-05-31] MEDS ORDERED: ONDANSETRON HCL 4 MG/2 ML VIAL IVP ONE (10:15)
[2017-05-31] MEDS ORDERED: ALUMINUM/MAGNESIUM/SIMETH 30 ML CUP PO ONE (10:15)
[2017-05-31 10:46] LABS: AUTOMATED NEUTROPHIL # 3.4 TH/MM3 (1.8-7.7); BASOPHIL % 0.5 % (0.0-2.0); EOSINOPHIL # 0.1 TH/MM3 (0-0.4); EOSINOPHIL % 1.2 % (0.0-4.0); HEMATOCRIT 37.7 % (35.0-46.0); HEMOGLOBIN 12.8 GM/DL (11.6-15.3); LYMPH % 46.9 % (9.0-44.0); LYMPHOCYTE # 3.5 TH/MM3 (1.0-4.8); MEAN CELL VOLUME 81.5 FL (80.0-100.0); MEAN CORPUSCULAR HEMOGLOBIN 27.6 PG (27.0-34.0); MEAN CORPUSCULAR HGB CONC 33.9 % (32.0-36.0); MEAN PLATELET VOLUME 7.8 FL (7.0-11.0); MONO % 5.9 % (0.0-8.0); MONOCYTE # 0.4 TH/MM3 (0-0.9); NEUT % 45.5 % (16.0-70.0); PLATELET COUNT 327 TH/MM3 (150-450); RED BLOOD COUNT 4.63 MIL/MM3 (4.00-5.30); RED CELL DISTRIBUTION WIDTH 14.3 % (11.6-17.2); WHITE BLOOD COUNT 7.5 TH/MM3 (4.0-11.0)
[2017-05-31 11:10] LABS: ALBUMIN 3.4 GM/DL (3.4-5.0); AST (GOT) 15 U/L (15-37); BICARBONATE 23.1 MEQ/L (21.0-32.0); BLOOD UREA NITROGEN 8 MG/DL (7-18); CALCIUM 8.8 MG/DL (8.5-10.1); CHLORIDE 107 MEQ/L (98-107); GLOMERULAR FILTRATION RATE 105 ML/MIN (>89); GLUCOSE,RANDOM 127 MG/DL (74-106); SODIUM (NA) 137 MEQ/L (136-145)
[2017-05-31 11:12] LABS: ALKALINE PHOSPHATASE 64 U/L (45-117); TOTAL PROTEIN 7.4 GM/DL (6.4-8.2)
[2017-05-31 11:13] VITALS: PULSE 65; RESP 15; O2SAT 99
[2017-05-31 11:13] LABS: ALT (GPT) 29 U/L (10-53); TOTAL BILIRUBIN ADULT 0.4 MG/DL (0.2-1.0)
[2017-05-31] MEDS ORDERED: DICYCLOMINE HCL 20 MG/2 ML VIAL IM ONE (12:00)
[2017-05-31 12:24] LABS: BACTERIA, URINE OCC /hpf; BILIRUBIN, URINE NEG (NEG); BLOOD, URINE NEG (NEG); GLUCOSE,URINE NEG (NEG); HYALINE CAST, URINE 1 /lpf (RARE); KETONE, URINE NEG (NEG); MUCUS URINE MANY /lpf (OCC); NITRITE,URINE NEG (NEG); PH, URINE 5.5 (5.0-8.5); SQUAMOUS EPITHELIAL CELL URINE 5 /hpf (0-5); URINE COLOR YELLOW (YELLW/STRAW); URINE LEUKOCYTE ESTERASE NEG (NEG)
[2017-05-31 13:00] VITALS: BP 109/63; PULSE 62; RESP 15; O2SAT 98
[2017-05-31] MEDS ORDERED: RANI150T PO (13:55)
[2017-05-31] MEDS ORDERED: DICY10 PO (13:55)
[2017-05-31] MEDS ORDERED: ONDA4TAB7 SL (13:55)
--- NOTE | 2017-05-31 14:00 | PD ---
Data Data Last Documented VS Vital Signs Date Time Temp Pulse Resp B/P (MAP) Pulse Ox O2 Delivery O2 Flow Rate FiO2 05/31/17 11:13 65 15 99 Room Air 05/31/17 09:18 97.5 Orders Orders Complete Blood Count With Diff (05/31/17 10:01) Comprehensive Metabolic Panel (05/31/17 10:01) Lipase (05/31/17 10:01) Lactic Acid (05/31/17 10:01) Prothrombin Time / Inr (Pt) (05/31/17 10:01) Act Partial Throm Time (Ptt) (05/31/17 10:01) Urinalysis - C+S If Indicated (05/31/17 10:01) Iv Access Insert/Monitor (05/31/17 10:01) Ecg Monitoring (05/31/17 10:01) Oximetry (05/31/17 10:01) NPO (05/31/17 10:01) Ondansetron Inj (Zofran Inj) (05/31/17 10:15) Sodium Chlor 0.9% 1000 Ml Inj (Ns 1000 M (05/31/17 10:01) Sodium Chloride 0.9% Flush (Ns Flush) (05/31/17 10:15) Famotidine Inj (Pepcid Inj) (05/31/17 10:15) Al-Mag Hy-Si 40-40-4 Mg/Ml Liq (Mag-Al P (05/31/17 10:15) Lidocaine 2% Viscous (Xylocaine 2% Visco (05/31/17 10:15) Ed Urine Pregnancytest Poc (05/31/17 10:01) Sodium Chloride 0.9% Flush (Ns Flush) (05/31/17 12:00) Dicyclomine Inj (Bentyl Inj) (05/31/17 12:00) Ed Discharge Order (05/31/17 13:58) Labs Laboratory Tests Test 05/31/17 10:15 05/31/17 12:00 White Blood Count 7.5 TH/MM3 Red Blood Count 4.63 MIL/MM3 Hemoglobin 12.8 GM/DL Hematocrit 37.7 % Mean Corpuscular Volume 81.5 FL Mean Corpuscular Hemoglobin 27.6 PG Mean Corpuscular Hemoglobin Concent 33.9 % Red Cell Distribution Width 14.3 % Platelet Count 327 TH/MM3 Mean Platelet Volume 7.8 FL Neutrophils (%) (Auto) 45.5 % Lymphocytes (%) (Auto) 46.9 % Monocytes (%) (Auto) 5.9 % Eosinophils (%) (Auto) 1.2 % Basophils (%) (Auto) 0.5 % Neutrophils # (Auto) 3.4 TH/MM3 Lymphocytes # (Auto) 3.5 TH/MM3 Monocytes # (Auto) 0.4 TH/MM3 Eosinophils # (Auto) 0.1 TH/MM3 Basophils # (Auto) 0.0 TH/MM3 CBC Comment DIFF FINAL Differential Comment Blood Urea Nitrogen 8 MG/DL Creatinine 0.80 MG/DL Random Glucose 127 MG/DL Total Protein 7.4 GM/DL Albumin 3.4 GM/DL Calcium Level 8.8 MG/DL Alkaline Phosphatase 64 U/L Aspartate Amino Transf (AST/SGOT) 15 U/L Alanine Aminotransferase (ALT/SGPT) 29 U/L Total Bilirubin 0.4 MG/DL Sodium Level 137 MEQ/L Potassium Level 4.8 MEQ/L Chloride Level 107 MEQ/L Carbon Dioxide Level 23.1 MEQ/L Anion Gap 7 MEQ/L Estimat Glomerular Filtration Rate 105 ML/MIN Lipase 98 U/L Urine Color YELLOW Urine Turbidity HAZY Urine pH 5.5 Urine Specific [place] 1.018 Urine Protein TRACE mg/dL Urine Glucose (UA) NEG mg/dL Urine Ketones NEG mg/dL Urine Occult Blood NEG Urine Nitrite NEG Urine Bilirubin NEG Urine Urobilinogen LESS THAN 2.0 MG/DL Urine Leukocyte Esterase NEG Urine RBC LESS THAN 1 /hpf Urine WBC 2 /hpf Urine Squamous Epithelial Cells 5 /hpf Urine Bacteria OCC /hpf Urine Hyaline Casts 1 /lpf Urine Mucus MANY /lpf Microscopic Urinalysis Comment CULT NOT INDICATED [facility] Supervised Visit with GILES: Yes Narrative Course The history, exam, and medical decision-making in the associated midlevel provider note were completed with my assistance. I reviewed and agree with the findings presented. I attest that I had a [id number] encounter with the patient on the same day, and personally performed and documented my assessment and findings in the medical record. *My assessment and Findings: This is a 26-year-old female who presents to the emergency department with nausea vomiting diarrhea and abdominal pain ever since she ate what she thinks was bad sushi yesterday. She has a history of chronic abdominal pain and is in the emergency department fairly frequently and I have seen her in the past. Labs are all reassuring. I do not think she requires further imaging of her abdomen and she has had CT imaging in the past. Patient was given symptomatic management. I think she can be discharged home. If she feels where she can return to the emergency department at which time we can consider CT imaging. Diagnosis Primary Impression: Gastritis Qualified Codes: K29.70 - Gastritis, unspecified, without bleeding Patient Instructions: General Instructions, Acute Nausea and Vomiting (ED) Additional Instruction: Labs show CBC unremarkable with increased lymphocytes. Chemistries unremarkable except for random glucose of 127. Urinalysis is unremarkable as well. Patient will be discharged home with Zofran 4 mg every 6 hours as needed #12. Patient also given Bentyl 10 mg up to 3 times daily as needed cramping #12. 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 Scripts Ranitidine (Ranitidine) 150 Mg Tab 150 MG PO BID for Heartburn Management, #60 TAB 0 Refills Prov: Brigitte Garcia MD 05/31/17 Ondansetron Odt (Ondansetron Odt) 4 Mg Tab 4 MG SL Q6HR Y for Nausea/Vomiting, #12 TAB 0 Refills Prov: Brigitte Garcia MD 05/31/17 Dicyclomine (Bentyl) 10 Mg Cap 10 MG PO TID Y for ABDOMINAL CRAMPING for 12 Days, CAP 0 Refills Prov: Brigitte Garcia MD 05/31/17 Disposition: 01 DISCHARGE HOME Condition: Stable Brigitte Garcia MD May 31, 2017 14:00
== END 2017-05-31 14:32 | disposition home or self-care (01) ==
LOC: NEPD 09:16
DX: K29.70 Gastritis, unspecified, without bleeding (principal); G89.29 Other chronic pain
CPT/HCPCS: 80053; 81001; 83690; 84703; 85025; 96361; 96374; 96375; 99283; J2405; J7030

== ENCOUNTER 2017-06-07 09:21 | Emergency (ER) | payer MEDICAID ==
[~2017-06-07] VITALS: Ht 170.2 cm; Wt 80.0 kg
[2017-06-07 09:24] VITALS: BP 111/69; PULSE 85; RESP 14; TEMP 98.2; O2SAT 95
--- NOTE | 2017-06-07 10:30 | PD ---
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 He also apparently accidentally anally inserted during sex and she states that she has had blood in her urine and have been having yellowish discharge. She denies any fevers, vomiting, or other symptoms. She denies use of any other foreign bodies. Modifying Factors: None Associated Signs & Symptoms: Pain during sex, vaginal discharge, blood in the urine Risk Factors: None PFSH Past Medical History Anxiety: Yes Depression: Yes Cancer: No Cardiovascular Problems: No Diabetes: No Diminished Hearing: No Endocrine: No Gastrointestinal Disorders: Yes GERD: Yes Genitourinary: No Headaches: Yes Hypertension: No Immune Disorder: No Implanted Vascular Access Dvce: No Musculoskeletal: No Psychiatric: Yes Reproductive: Yes Immunizations Current: Yes Migraines: Yes Sickle Cell Disease: No Ulcer: Yes ?: Not : 4 Para: 1 Miscarriage: 2 : 1 Past Surgical History Abdominal Surgery: Yes (APPENDECTOMY) AICD: No Appendectomy: Yes Arteriovenous Shunt: No Cholecystectomy: Yes Insulin Pump: No Joint Replacement: No Pacemaker: No Other Surgery: Yes Social History Alcohol Use: No ( ) Tobacco Use: No Substance Use: No Allergies-Medications (Allergen,Severity, Reaction): Coded Allergies: ketorolac (Verified Allergy, Intermediate, rash, 06/07/17) Reported Meds & Prescriptions Reported Meds & Active Scripts Active No Active Prescriptions or Reported Medications Review of Systems Except as stated in HPI: all other systems reviewed are Neg Physical Exam Narrative GENERAL: Well-developed young female patient currently in mild distress. Awake and oriented 3. SKIN: Focused skin assessment warm/dry. HEAD: Atraumatic. Normocephalic. EYES: Pupils equal and round. No scleral icterus. No injection or drainage. ENT: No nasal bleeding or discharge. Mucous membranes pink and moist. NECK: Trachea midline. No JVD. CARDIOVASCULAR: Regular rate and rhythm. No murmur appreciated. RESPIRATORY: No accessory muscle use. Clear to auscultation. Breath sounds equal bilaterally. GASTROINTESTINAL: Abdomen soft, pelvic tenderness without guarding or rebound, nondistended. Hepatic and splenic margins not palpable. GENITOURINARY: Normal external genitalia without lesions or erythema. Vaginal vault without blood but is notable for yellowish drainage. Cervical os was closed without drainage. Positive cervical motion tenderness. IUD string is in place. Uterus mildly tender to palpation. Bilateral adnexa nontender without masses. MUSCULOSKELETAL: No obvious deformities. No clubbing. No cyanosis. No edema. NEUROLOGICAL: Awake and alert. No obvious cranial nerve deficits. Motor grossly within normal limits. Normal speech. PSYCHIATRIC: Appropriate mood and affect; insight and judgment normal. Data Data Last Documented VS Vital Signs Date Time Temp Pulse Resp B/P (MAP) Pulse Ox O2 Delivery O2 Flow Rate FiO2 06/07/17 09:24 98.2 85 14 111/69 (83) 95 Orders Orders Gc And Chlamydia Pcr (06/07/17 10:24) Wet Prep Profile (06/07/17 10:24) Urinalysis - C+S If Indicated (06/07/17 10:24) Ed Urine Pregnancytest Poc (06/07/17 10:24) Us Pelvis Comp W Doppler (06/07/17 10:30) Labs Laboratory Tests Test 06/07/17 10:20 06/07/17 10:25 Clue Cells (Wet Prep) NONE SEEN Vaginal Trichomonas (Wet Prep) NONE SEEN Vaginal Yeast (Wet Prep) NONE SEEN Urine Color YELLOW Urine Turbidity CLEAR Urine pH 5.0 Urine Specific [place] 1.028 Urine Protein TRACE mg/dL Urine Glucose (UA) NEG mg/dL Urine Ketones NEG mg/dL Urine Occult Blood NEG Urine Nitrite NEG Urine Bilirubin NEG Urine Urobilinogen LESS THAN 2.0 MG/DL Urine Leukocyte Esterase NEG Urine RBC LESS THAN 1 /hpf Urine WBC 1 /hpf Urine Squamous Epithelial Cells 3 /hpf Urine Mucus FEW /lpf Microscopic Urinalysis Comment CULT NOT INDICATED MDM Medical Decision Making Medical Screen Exam Complete: Yes Emergency Medical Condition: Yes Medical Record Reviewed: Yes Interpretation(s) Laboratory Tests Test 06/07/17 10:20 06/07/17 10:25 Urine Mucus FEW /lpf (OCC) Differential Diagnosis Cervicitis/PID versus UTI versus IUD dislodgment Narrative Course Patient is not . UA did not show UTI. Pelvic exam shows significant discharge concerning for possible underlying cervicitis or PID. IUD string is in place. Ultrasound shows that the IUD is in place. At this point, considering the pelvic exam, empiric antibiotics were given in the ER. Safe sex until she finds out the results. GC is pending. Follow-up with [facility] UNIT NURSE as needed. Return for worsening in pain or new symptoms as needed. Protected sex until she finds out the results. Diagnosis Primary Impression: Pelvic pain in female Scripts No Active Prescriptions or Reported Meds Disposition: 01 DISCHARGE HOME Condition: Stable Juan Manuel Rushing MD Jun 07, 2017 10:30
[2017-06-07 11:12] LABS: BILIRUBIN, URINE NEG (NEG); BLOOD, URINE NEG (NEG); GLUCOSE,URINE NEG (NEG); KETONE, URINE NEG (NEG); MUCUS URINE FEW /lpf (OCC); NITRITE,URINE NEG (NEG); SQUAMOUS EPITHELIAL CELL URINE 3 /hpf (0-5); URINE COLOR YELLOW (YELLW/STRAW); URINE LEUKOCYTE ESTERASE NEG (NEG)
--- NOTE | 2017-06-07 12:07 | RADRPT ---
EXAM DATE/TIME: 06/07/2017 11:22 [facility] COMPARISON: No previous studies available for comparison. INDICATIONS : Pelvic Pain. MEDICAL HISTORY : Gastroesophageal reflux disease. SURGICAL HISTORY : Appendectomy. Cholecystectomy. ENCOUNTER: Subsequent ACUITY: 4-6 days PAIN SCORE: 3/10 LOCATION: Bilateral pelvis MEASUREMENTS: UTERUS: 8.3 x 7.5 x 5.8 cm ENDOMETRIAL STRIPE: 14 mm RIGHT OVARY: 3.6 x 1.7 x 2.3 cm LEFT OVARY: 3.9 x 2.7 x 1.2 cm FINDINGS: UTERUS: The myometrium has homogeneous echotexture without mass. The uterine device in good position. RIGHT OVARY: Ovary contains no mass or significant cystic lesion. Normal flow. LEFT OVARY: Ovary contains no mass or significant cystic lesion. Normal flow. MISCELLANEOUS: No free fluid. CONCLUSION: 1. IUD. 2. No acute abnormalities. Andrea Segura MD on June 07, 2017 at 12:04 Board Certified Radiologist. This report was verified electronically.
[2017-06-07] MEDS ORDERED: AZITHROMYCIN PWD FOR SUSP 1 GM PACKET PO ONE (12:15)
[2017-06-07] MEDS ORDERED: LIDOCAINE HCL 1% 50 ML VIAL IM ONE (12:15)
[2017-06-07] MEDS ORDERED: cefTRIAXone 250 MG VIAL IM ONE (12:15)
[2017-06-07] MEDS ORDERED: metroNIDAZOLE 500 MG TAB PO ONE (12:15)
[2017-06-07] MEDS ORDERED: LIDOCAINE HCL 1% 20 ML VIAL INFIL ONE (12:45)
[2017-06-07 12:57] VITALS: BP 120/81; TEMP 97.7
== END 2017-06-07 13:01 | disposition home or self-care (01) ==
LOC: NEPE 09:21
DX: R10.2 Pelvic and perineal pain (principal); N89.8 Other specified noninflammatory disorders of vagina; F41.9 Anxiety disorder, unspecified; F32.9 Major depressive disorder, single episode, unspecified; K21.9 Gastro-esophageal reflux disease without esophagitis; Z88.8 Allergy status to other drugs, medicaments and biological substances
CPT/HCPCS: 76856; 81001; 84703; 87210; 87491; 87591; 93975; 96372; 99284; J0696

== ENCOUNTER 2017-06-10 09:32 | Emergency (ER) | payer MEDICAID ==
[~2017-06-10] VITALS: Ht 170.2 cm; Wt 70.0 kg
[2017-06-10 09:34] VITALS: BP 113/75; PULSE 80; RESP 18; TEMP 97.8; O2SAT 97
[2017-06-10 10:40] LABS: BACTERIA, URINE RARE /hpf; BILIRUBIN, URINE NEG (NEG); BLOOD, URINE TRACE (NEG); GLUCOSE,URINE NEG (NEG); KETONE, URINE NEG (NEG); NITRITE,URINE NEG (NEG); SQUAMOUS EPITHELIAL CELL URINE 5 /hpf (0-5); URINE COLOR YELLOW (YELLW/STRAW); URINE LEUKOCYTE ESTERASE MOD (NEG)
[2017-06-10] MEDS ORDERED: SODIUM CHLOR 0.9% 1000 ML INJ 1,000 ML IV SCH (11:11)
[2017-06-10] MEDS ORDERED: SODIUM CHLORIDE 0.9% FLUSH 10 ML FLUSH IV FLUSH PRN (11:15)
[2017-06-10] MEDS ORDERED: MORPHINE SULFATE 2 MG/ML INJ IV PUSH ONE ×2 (11:15→12:45)
--- NOTE | 2017-06-10 11:16 | PD ---
HPI Chief Complaint: Flank/Kidney Pain Time Seen by Provider: 11:11 Travel History International Travel<30 days: No Contact w/Intl Traveler<30days: No Traveled to known affect area: No History of Present Illness HPI 26-year-old female patient who has been seen intermittently for abdominal pains , has had a cholecystectomy and appendectomy in the past, presents to the ER today for worsening in the last 2 days of the left upper quadrant and left flank area which she currently states is an 8 out of 10. She does not note any exacerbating or relieving factors. She denies any vomiting, diarrhea, fevers, or any other symptoms. She had been seen for pelvic pain several days ago and findings were negative. Modifying Factors: None Associated Signs & Symptoms: Left upper quadrant abdominal pain and flank pain Risk Factors: None PFSH Past Medical History Anxiety: Yes Depression: Yes Cancer: No Cardiovascular Problems: No Diabetes: No Diminished Hearing: No Endocrine: No Gastrointestinal Disorders: Yes GERD: Yes Genitourinary: No Headaches: Yes Hypertension: No Immune Disorder: No Implanted Vascular Access Dvce: No Musculoskeletal: No Psychiatric: Yes Reproductive: Yes Immunizations Current: Yes Migraines: Yes Sickle Cell Disease: No Ulcer: Yes : 4 Para: 1 Miscarriage: 2 : 1 Past Surgical History Abdominal Surgery: Yes (APPENDECTOMY) AICD: No Appendectomy: Yes Arteriovenous Shunt: No Cholecystectomy: Yes Insulin Pump: No Joint Replacement: No Pacemaker: No Other Surgery: Yes Social History Alcohol Use: No ( ) Tobacco Use: No Substance Use: No Allergies-Medications (Allergen,Severity, Reaction): Coded Allergies: ketorolac (Verified Allergy, Intermediate, rash, 06/10/17) Reported Meds & Prescriptions Reported Meds & Active Scripts Active No Active Prescriptions or Reported Medications Review of Systems Except as stated in HPI: all other systems reviewed are Neg Physical Exam Narrative GENERAL: Well-developed young female patient currently in mild distress. Awake and oriented 3. SKIN: Focused skin assessment warm/dry. HEAD: Atraumatic. Normocephalic. EYES: Pupils equal and round. No scleral icterus. No injection or drainage. ENT: No nasal bleeding or discharge. Mucous membranes pink and moist. NECK: Trachea midline. No JVD. CARDIOVASCULAR: Regular rate and rhythm. No murmur appreciated. RESPIRATORY: No accessory muscle use. Clear to auscultation. Breath sounds equal bilaterally. GASTROINTESTINAL: Abdomen soft, mild left upper quadrant tenderness without guarding or rebound, nondistended. Hepatic and splenic margins not palpable. BACK: Left CVA tenderness. No rash. No point tenderness on palpation of the spine. MUSCULOSKELETAL: No obvious deformities. No clubbing. No cyanosis. No edema. NEUROLOGICAL: Awake and alert. No obvious cranial nerve deficits. Motor grossly within normal limits. Normal speech. PSYCHIATRIC: Appropriate mood and affect; insight and judgment normal. Data Data Last Documented VS Vital Signs Date Time Temp Pulse Resp B/P (MAP) Pulse Ox O2 Delivery O2 Flow Rate FiO2 06/10/17 11:23 98 Room Air 06/10/17 09:34 97.8 80 18 Orders Orders Urinalysis - C+S If Indicated (06/10/17 10:05) Ed Urine Pregnancytest Poc (06/10/17 10:05) Complete Blood Count With Diff (06/10/17 11:11) Comprehensive Metabolic Panel (06/10/17 11:11) Lipase (06/10/17 11:11) Ct Abd/Pel W Iv Contrast(Rout) (06/10/17 11:11) Iv Access Insert/Monitor (06/10/17 11:11) Ecg Monitoring (06/10/17 11:11) Oximetry (06/10/17 11:11) Sodium Chlor 0.9% 1000 Ml Inj (Ns 1000 M (06/10/17 11:11) Sodium Chloride 0.9% Flush (Ns Flush) (06/10/17 11:15) Morphine Inj (Morphine Inj) (06/10/17 11:15) Morphine Inj (Morphine Inj) (06/10/17 12:45) Iohexol 350 Inj (Omnipaque 350 Inj) (06/10/17 12:52) Ed Discharge Order (06/10/17 13:06) Labs Laboratory Tests Test 06/10/17 10:05 06/10/17 11:20 Urine Color YELLOW Urine Turbidity HAZY Urine pH 5.0 Urine Specific [place] 1.026 Urine Protein TRACE mg/dL Urine Glucose (UA) NEG mg/dL Urine Ketones NEG mg/dL Urine Occult Blood TRACE Urine Nitrite NEG Urine Bilirubin NEG Urine Urobilinogen LESS THAN 2.0 MG/DL Urine Leukocyte Esterase MOD Urine RBC 1 /hpf Urine WBC 2 /hpf Urine Squamous Epithelial Cells 5 /hpf Urine Bacteria RARE /hpf Microscopic Urinalysis Comment CULT NOT INDICATED White Blood Count 7.7 TH/MM3 Red Blood Count 4.63 MIL/MM3 Hemoglobin 13.3 GM/DL Hematocrit 37.5 % Mean Corpuscular Volume 81.1 FL Mean Corpuscular Hemoglobin 28.7 PG Mean Corpuscular Hemoglobin Concent 35.4 % Red Cell Distribution Width 14.2 % Platelet Count 339 TH/MM3 Mean Platelet Volume 7.9 FL Neutrophils (%) (Auto) 49.6 % Lymphocytes (%) (Auto) 44.0 % Monocytes (%) (Auto) 5.2 % Eosinophils (%) (Auto) 0.8 % Basophils (%) (Auto) 0.4 % Neutrophils # (Auto) 3.8 TH/MM3 Lymphocytes # (Auto) 3.4 TH/MM3 Monocytes # (Auto) 0.4 TH/MM3 Eosinophils # (Auto) 0.1 TH/MM3 Basophils # (Auto) 0.0 TH/MM3 CBC Comment DIFF FINAL Differential Comment Blood Urea Nitrogen 8 MG/DL Creatinine 0.76 MG/DL Random Glucose 118 MG/DL Total Protein 8.0 GM/DL Albumin 3.8 GM/DL Calcium Level 9.0 MG/DL Alkaline Phosphatase 67 U/L Aspartate Amino Transf (AST/SGOT) 24 U/L Alanine Aminotransferase (ALT/SGPT) 37 U/L Total Bilirubin 0.5 MG/DL Sodium Level 139 MEQ/L Potassium Level 4.2 MEQ/L Chloride Level 107 MEQ/L Carbon Dioxide Level 26.9 MEQ/L Anion Gap 5 MEQ/L Estimat Glomerular Filtration Rate 111 ML/MIN Lipase 101 U/L [facility] Medical Decision Making Medical Screen Exam Complete: Yes Emergency Medical Condition: Yes Medical Record Reviewed: Yes Interpretation(s) Laboratory Tests Test 06/10/17 10:05 06/10/17 11:20 Urine Turbidity HAZY (CLEAR) Urine Occult Blood TRACE (NEG) Urine Leukocyte Esterase MOD (NEG) Urine Bacteria RARE /hpf (NONE) Random Glucose 118 MG/DL (74-106) Last 24 hours Impressions Abdomen/Pelvis CT 06/10/17 1111 Signed Impressions: Service Date/Time: May 12:42 - CONCLUSION: No acute finding is identified within the abdomen or pelvis. Overall, stable exam. Chester Sutton MD Differential Diagnosis Left flank and abdominal pains: Gastritis versus gastroenteritis versus acute on chronic abdominal pains versus pancreatitis versus renal colic Narrative Course Lab work was fairly unremarkable. CAT scan was negative for any acute intra- abdominal processes. Patient was given IV fluids, several doses of pain medication and Zofran in the ER. At this point, my plan would be to release her with follow-up to primary care doctor. Return for new issues as needed. The plan has been discussed with her and she states understanding. Diagnosis Primary Impression: Abdominal pain Med/Other Pt SpecificInfo: Prescription(s) given Scripts Ondansetron (Zofran) 4 Mg Tab 4 MG PO Q6HR Y for NAUSEA OR VOMITING, #7 TAB 0 Refills Prov: Juan Manuel Rushing MD 06/10/17 Dicyclomine (Bentyl) 10 Mg Cap 10 MG PO TID Y for Bowel Management, #15 CAP 0 Refills Prov: Juan Manuel Rushing MD 06/10/17 Disposition: 01 DISCHARGE HOME Condition: Stable Juan Manuel Rushing MD Jun 10, 2017 11:16
[2017-06-10 11:23] VITALS: O2SAT 98
[2017-06-10 11:55] LABS: AUTOMATED NEUTROPHIL # 3.8 TH/MM3 (1.8-7.7); BASOPHIL % 0.4 % (0.0-2.0); EOSINOPHIL # 0.1 TH/MM3 (0-0.4); EOSINOPHIL % 0.8 % (0.0-4.0); HEMATOCRIT 37.5 % (35.0-46.0); HEMOGLOBIN 13.3 GM/DL (11.6-15.3); LYMPHOCYTE # 3.4 TH/MM3 (1.0-4.8); MEAN CELL VOLUME 81.1 FL (80.0-100.0); MEAN CORPUSCULAR HEMOGLOBIN 28.7 PG (27.0-34.0); MEAN CORPUSCULAR HGB CONC 35.4 % (32.0-36.0); MEAN PLATELET VOLUME 7.9 FL (7.0-11.0); MONO % 5.2 % (0.0-8.0); MONOCYTE # 0.4 TH/MM3 (0-0.9); NEUT % 49.6 % (16.0-70.0); PLATELET COUNT 339 TH/MM3 (150-450); RED BLOOD COUNT 4.63 MIL/MM3 (4.00-5.30); RED CELL DISTRIBUTION WIDTH 14.2 % (11.6-17.2); WHITE BLOOD COUNT 7.7 TH/MM3 (4.0-11.0)
[2017-06-10 12:10] LABS: ALBUMIN 3.8 GM/DL (3.4-5.0); ALT (GPT) 37 U/L (10-53); AST (GOT) 24 U/L (15-37); BICARBONATE 26.9 MEQ/L (21.0-32.0); BLOOD UREA NITROGEN 8 MG/DL (7-18); CHLORIDE 107 MEQ/L (98-107); CREATININE 0.76 MG/DL (0.50-1.00); GLOMERULAR FILTRATION RATE 111 ML/MIN (>89); GLUCOSE,RANDOM 118 MG/DL (74-106); SODIUM (NA) 139 MEQ/L (136-145)
[2017-06-10 12:13] LABS: ALKALINE PHOSPHATASE 67 U/L (45-117); TOTAL BILIRUBIN ADULT 0.5 MG/DL (0.2-1.0)
[2017-06-10] MEDS ORDERED: IOHEXOL 350 MG/ML 10 ML VIAL (for RAD DIAG) IVCONTRAST ONE (12:52)
--- NOTE | 2017-06-10 13:01 | RADRPT ---
EXAM DATE/TIME: 06/10/2017 12:42 [facility] COMPARISON: CT ABDOMEN & PELVIS W CONTRAST, November 01, 2016, 10:06. INDICATIONS : Left upper quadrant pain IV CONTRAST: 95 cc Omnipaque 350 (iohexol) IV ORAL CONTRAST: No oral contrast ingested. RADIATION DOSE: 10.89 CTDIvol (mGy) MEDICAL HISTORY : None SURGICAL HISTORY : Appendectomy. Cholecystectomy. ENCOUNTER: Initial ACUITY: 2 days PAIN SCALE: 5/10 LOCATION: Left upper chest TECHNIQUE: Volumetric scanning of the abdomen and pelvis was performed. Using automated exposure control and ad justment of the mA and/or kV according to patient size, radiation dose was kept as low as reasonably achievable to obtain optimal diagnostic quality images. DICOM format image data is available electro nically for review and comparison. FINDINGS: LOWER LUNGS: The visualized lower lungs are clear. LIVER: Homogeneous density without lesion. There is no dilation of the biliary tree. Gallbladder is absent with cholecystectomy clips present. SPLEEN: Normal size without lesion. PANCREAS: Within normal limits. KIDNEYS: Normal in size and shape. There is no mass, stone or hydronephrosis. ADRENAL GLANDS: Within normal limits. VASCULAR: There is no aortic aneurysm. BOWEL/MESENTERY: The stomach, small bowel, and colon demonstrate no acute abnormality. There is no free intraperitone al air or fluid. Clips are present adjacent to the cecum. ABDOMINAL WALL: Within normal limits. RETROPERITONEUM: There is no lymphadenopathy. BLADDER: No wall thickening or mass. REPRODUCTIVE: Within normal limits. IUD is present within the uterus in an expected location. INGUINAL: There is no lymphadenopathy or hernia. MUSCULOSKELETAL: No acute finding is identified. CONCLUSION: No acute finding is identified within the abdomen or pelvis. Overall, stable exam. Chester Sutton MD on June 10, 2017 at 12:55 Board Certified Radiologist. This report was verified electronically.
[2017-06-10] MEDS ORDERED: DICY10 PO (13:09)
[2017-06-10] MEDS ORDERED: ZOFR4TAB PO (13:09)
[2017-06-10 14:24] VITALS: BP 132/76
== END 2017-06-10 14:31 | disposition home or self-care (01) ==
LOC: NEPC 09:32
DX: R10.12 Left upper quadrant pain (principal); K21.9 Gastro-esophageal reflux disease without esophagitis; F32.9 Major depressive disorder, single episode, unspecified; F41.9 Anxiety disorder, unspecified
CPT/HCPCS: 74177; 80053; 81001; 83690; 84703; 85025; 96361; 96374; 96376; 99284; J2270; J7030; Q9967

== ENCOUNTER 2017-07-26 04:41 | Emergency (ER) | payer MEDICAID ==
[~2017-07-26] VITALS: Ht 170.2 cm; Wt 108.0 kg
[~2017-07-26 04:41] MED LIST changes: -ERYTOIN10 LEFT EYE; -HYDR-3533 PO; -IBUP1TAB7 PO; -LOPE2CAP PO; -ONDA4TAB7 SL; -PANT20 PO; -RANI150T PO; +ZOFR4TAB PO; -ZOFR4TAB3 SL
[2017-07-26 04:44] VITALS: BP 140/83; PULSE 82; RESP 18; TEMP 97.4; O2SAT 98
[2017-07-26 05:30] VITALS: RESP 20
[2017-07-26 05:34] LABS: AUTOMATED NEUTROPHIL # 3.9 TH/MM3 (1.8-7.7); BASOPHIL % 0.4 % (0.0-2.0); EOSINOPHIL # 0.1 TH/MM3 (0-0.4); EOSINOPHIL % 1.2 % (0.0-4.0); HEMATOCRIT 38.5 % (35.0-46.0); HEMOGLOBIN 12.8 GM/DL (11.6-15.3); LYMPH % 47.9 % (9.0-44.0); LYMPHOCYTE # 4.3 TH/MM3 (1.0-4.8); MEAN CELL VOLUME 80.5 FL (80.0-100.0); MEAN CORPUSCULAR HEMOGLOBIN 26.8 PG (27.0-34.0); MEAN CORPUSCULAR HGB CONC 33.3 % (32.0-36.0); MEAN PLATELET VOLUME 8.3 FL (7.0-11.0); MONO % 6.1 % (0.0-8.0); MONOCYTE # 0.5 TH/MM3 (0-0.9); NEUT % 44.4 % (16.0-70.0); PLATELET COUNT 384 TH/MM3 (150-450); RED BLOOD COUNT 4.78 MIL/MM3 (4.00-5.30); RED CELL DISTRIBUTION WIDTH 14.4 % (11.6-17.2); WHITE BLOOD COUNT 8.9 TH/MM3 (4.0-11.0)
[2017-07-26] MEDS ORDERED: ZOFR4TAB PO (05:35)
--- NOTE | 2017-07-26 05:35 | PD ---
HPI Chief Complaint: Flank/Kidney Pain Time Seen by Provider: 05:01 Travel History International Travel<30 days: No Contact w/Intl Traveler<30days: No Traveled to known affect area: No History of Present Illness HPI The patient is a 26 year old female who presents to the [facility] emergency department with a history of 2 concerns. The patient's first concern is that while she was walking her dog at approximately midnight she tripped and inverted her ankle. The patient reports having right ankle pain. She reports that there is swelling along the lateral aspect. She reports that it hurts to weight-bear. The patient's second concern during this emergency department visit is having sharp left upper quadrant abdominal pain since Wednesday. 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 The patient reports that she had 5 drinks. She reports that she has had nausea, vomiting, and diarrhea intermittently since then. She denies having any dysuria, hematuria, urinary urgency, or frequency. On review of systems otherwise, the patient denies having any recent fevers, cough, congestion, neck pain, chest pain, shortness of breath, or neurologic symptoms. The patient reports having a history of abdominal pain intermittently in the past. The patient last had a CT scan of the abdomen and pelvis done in May 2017 related to some abdominal pain. She reports that she last saw her primary care physician one month ago and is in the process of being referred to a fuel cell repairer. LMP: July 20, 2017 [facility] Past Medical History Narrative Medical The patient's past medical history is significant for recurrent abdominal pain, anxiety, depression, acid reflux, headaches. Anxiety: Yes Depression: Yes Cancer: No Cardiovascular Problems: No Diabetes: No Diminished Hearing: No Endocrine: No Gastrointestinal Disorders: Yes GERD: Yes Genitourinary: No Headaches: Yes Hypertension: No Immune Disorder: No Implanted Vascular Access Dvce: No Musculoskeletal: No Psychiatric: Yes Reproductive: Yes Immunizations Current: Yes Migraines: Yes Sickle Cell Disease: No Ulcer: Yes Tetanus Vaccination: < 5 Years Influenza Vaccination: Yes ?: Not LMP: 07/15/2017 : 4 Para: 1 Miscarriage: 2 : 1 Past Surgical History Narrative Surgical The patient's past surgical history is significant for cholecystectomy in September 2014, appendectomy Abdominal Surgery: Yes (APPENDECTOMY) AICD: No Appendectomy: Yes Arteriovenous Shunt: No Cholecystectomy: Yes Insulin Pump: No Joint Replacement: No Pacemaker: No Other Surgery: Yes Social History Alcohol Use: Yes (OCC) Tobacco Use: No Substance Use: No Allergies-Medications (Allergen,Severity, Reaction): Coded Allergies: ketorolac (Verified Allergy, Intermediate, rash, 07/26/17) Reported Meds & Prescriptions Reported Meds & Active Scripts Active Zofran (Ondansetron HCl) 4 Mg Tab 4 Mg PO Q6HR PRN Review of Systems Except as stated in HPI: all other systems reviewed are Neg General / Constitutional: No: Fever Eyes: No: Visual changes HENT: No: Headaches Cardiovascular: No: Chest Pain or Discomfort Respiratory: No: Shortness of Breath Gastrointestinal: Positive: Nausea, Vomiting, Diarrhea, Abdominal Pain, Changes in Bowel Habits, Indigestion, No: Loss of Appetite Genitourinary: Positive: Flank Pain, No: Urgency, Frequency, Dysuria Musculoskeletal: Positive: Myalgias, Arthralgias, Edema, Pain Skin: No Rash Neurologic: No: Weakness, Focal Abnormalities, Change in Mentation, Slurred Speech, Sensory Disturbance Psychiatric: No: Depression Endocrine: No: Polydipsia Hematologic/Lymphatic: No: Easy Bruising Physical Exam Narrative General: The patient is a well-developed well-nourished female in no acute distress. Head and Neck exam: Head is normocephalic atraumatic. Eyes: EOMI, pupils are equal round and reactive to light. Nose: Midline septum with pink mucous membranes Mouth: Dentition unremarkable. Moist mucus membranes. Posterior oropharynx is not erythematous. No tonsillar hypertrophy. Uvula midline. Airway patent. Neck: No palpable lymphadenopathy. No nuchal rigidity. No thyromegaly. Cardiovascular: Regular rate and rhythm without murmurs, gallops, or rubs. Lungs: Clear to auscultation bilaterally. No wheezes, rhonchi, or rales. Abdomen: Soft, with reported tenderness on palpation in the left upper quadrant of the abdomen, no other tenderness on palpation of the other quadrants. Normal bowel sounds are audible. No tenderness on palpation of McBurney's point. No guarding, rebound, or rigidity. Extremities: No clubbing, cyanosis, or edema, except in the area of interest, the right ankle , the patient has tenderness on palpation over the lateral malleolus. The patient has swelling noted at the site. The patient has pain over the midsection of the foot overlying the first through fifth metatarsals. There is no ecchymosis noted. No erythema. No step-off or crepitus. No pain on palpation of the calcaneus. No pain on palpation over the medial malleolus. 2 + pulses in all 4 extremities. Back: No spinous process tenderness to palpation. The patient reports having left- sided CVA tenderness on palpation Neurologic Exam: Grossly nonfocal. Skin Exam: No rash noted. Intact skin that is warm and dry. Data Data Last Documented VS Vital Signs Date Time Temp Pulse Resp B/P (MAP) Pulse Ox O2 Delivery O2 Flow Rate FiO2 07/26/17 05:30 20 07/26/17 04:44 97.4 82 140/83 (102) 98 Orders Orders Complete Blood Count With Diff (07/26/17 05:21) Basic Metabolic Panel (Bmp) (07/26/17 05:21) Urinalysis - C+S If Indicated (07/26/17 05:21) Iv Access Insert/Monitor (07/26/17 05:21) Ecg Monitoring (07/26/17 05:21) Oximetry (07/26/17 05:21) Ed Urine Pregnancytest Poc (07/26/17 05:21) Ankle, Complete ([id number]) (07/26/17 05:21) Foot, Complete ([id number]) (07/26/17 05:21) Ice/Cold Pack (07/26/17 05:21) Acetaminophen (Tylenol) (07/26/17 05:45) Ondansetron Inj (Zofran Inj) (07/26/17 06:00) Sodium Chlor 0.9% 1000 Ml Inj (Ns 1000 M (07/26/17 06:00) Splint Or Brace Apply/Monitor (07/26/17 06:16) Dicyclomine Inj (Bentyl Inj) (07/26/17 06:45) Prochlorperazine Inj (Compazine Inj) (07/26/17 06:45) Labs Laboratory Tests Test 07/26/17 05:25 White Blood Count 8.9 TH/MM3 Red Blood Count 4.78 MIL/MM3 Hemoglobin 12.8 GM/DL Hematocrit 38.5 % Mean Corpuscular Volume 80.5 FL Mean Corpuscular Hemoglobin 26.8 PG Mean Corpuscular Hemoglobin Concent 33.3 % Red Cell Distribution Width 14.4 % Platelet Count 384 TH/MM3 Mean Platelet Volume 8.3 FL Neutrophils (%) (Auto) 44.4 % Lymphocytes (%) (Auto) 47.9 % Monocytes (%) (Auto) 6.1 % Eosinophils (%) (Auto) 1.2 % Basophils (%) (Auto) 0.4 % Neutrophils # (Auto) 3.9 TH/MM3 Lymphocytes # (Auto) 4.3 TH/MM3 Monocytes # (Auto) 0.5 TH/MM3 Eosinophils # (Auto) 0.1 TH/MM3 Basophils # (Auto) 0.0 TH/MM3 CBC Comment DIFF FINAL Differential Comment Blood Urea Nitrogen 8 MG/DL Creatinine 0.76 MG/DL Random Glucose 172 MG/DL Calcium Level 8.7 MG/DL Sodium Level 140 MEQ/L Potassium Level 3.9 MEQ/L Chloride Level 107 MEQ/L Carbon Dioxide Level 26.3 MEQ/L Anion Gap 7 MEQ/L Estimat Glomerular Filtration Rate 111 ML/MIN MDM Medical Decision Making Medical Screen Exam Complete: Yes Emergency Medical Condition: Yes Medical Record Reviewed: Yes Interpretation(s) Last 24 hours Impressions Foot X-Ray 07/26/17520 Signed Impressions: Service Date/Time: Wednesday, July 26, 2017 06:03 - CONCLUSION: Unremarkable examination of the right foot. Chester Pressley MD Ankle X-Ray 07/26/17520 Signed Impressions: Service Date/Time: Wednesday, July 26, 2017 06:00 - CONCLUSION: Unremarkable examination of the right ankle. Chester Pressley MD Differential Diagnosis Regarding abdominal pain: Differential diagnosis includes alcohol related gastritis, versus peptic ulcer disease, versus acid reflux, versus pyelonephritis, versus gastroparesis, versus gastroenteritis Regarding the patient's right ankle pain: Sprain, versus fracture Narrative Course During the course of the patient's emergency department visit, the patient's history, examination, and differential diagnosis were reviewed with the patient. The patient was placed on a cafeteria monitor with oximetry and frequent blood pressure monitoring. The patient had IV access obtained and blood work sent for analysis. The patient was initially provided normal saline 1 L IV fluid bolus, Zofran 4 mg IV. The patient's laboratory studies were reviewed and remarkable for a white count of 8.9, hemoglobin 12.8, platelets 384 with 47.9 lymphocytes, basic metabolic profile is remarkable for glucose of 172. The patient's prior labs were reviewed and the patient's blood sugar has been trending upward. The patient reports that she was fasting since yesterday. I did recommend that she have her blood sugar rechecked with her primary care physician. The patient's abdominal examination is benign and the patient was recently seen on multiple occasions for similar abdominal pain in the emergency department with her last CT scan of the abdomen and pelvis being done on June 10, 2017. And total at this facility she has had 5 CT scans of the abdomen and pelvis done since 2014, therefore the risks outweigh the benefits of additional CT scan imaging in my opinion. Radiology studies were reviewed and remarkable for a right ankle x-ray and right foot x-ray that showed no acute bony abnormality. The patient was placed in an Jacob wrap and instructed on rice therapy. Anticipate that the patient's urinalysis will be unremarkable, however the oncoming emergency physician will review the patient's urinalysis and if abnormal make an addendum regarding this patient's case, however otherwise the patient will be discharged home to follow-up with the fuel cell repairer as a referral from her primary care physician as she previously intended. The patient will be discharged home with a prescription for nausea medication. She is instructed to push fluids and get plenty of rest. The patient is resting comfortably and feels better, is alert and in no distress. The patient's results and examination findings were discussed with the patient. The repeat examination is unremarkable and benign. The history, exam, diagnostic testing, and current condition do not suggest any significant pathology to warrant further testing, continued ED treatment, admission, or surgical evaluation at this point. The vital signs have been stable. The patient does not have uncontrollable pain, intractable vomiting, or other significant symptoms. The patient's condition is stable and appropriate for discharge. The patient will pursue further outpatient evaluation with a primary care physician or other designated or consulting physician as indicated in the discharge instructions. The patient expressed understanding and was agreeable with this plan. Diagnosis Primary Impression: Abdominal pain Qualified Codes: R10.12 - Left upper quadrant pain Additional Impressions: Nausea, vomiting, and diarrhea Left flank pain Right ankle sprain Qualified Codes: S93.401A - Sprain of unspecified ligament of right ankle, initial encounter Referrals: Primary Care Physician 2 days Patient Instructions: Abdominal Pain (ED), Acute Diarrhea (ED), Acute Nausea and Vomiting (ED), Ankle Sprain (ED), General Instructions Med/Other Pt SpecificInfo: Prescription(s) given Scripts Ondansetron (Zofran) 4 Mg Tab 4 MG PO Q6HR Y for NAUSEA OR VOMITING, #7 TAB 0 Refills Prov: Mirna Purdy MD 07/26/17 Disposition: 01 DISCHARGE HOME Condition: Stable Mirna Purdy MD Jul 26, 2017 05:35
[2017-07-26] MEDS ORDERED: ACETAMINOPHEN 325 MG TAB PO ONE (05:45)
[2017-07-26] MEDS ORDERED: SODIUM CHLOR 0.9% 1000 ML INJ 1,000 ML IV ONE (06:00)
[2017-07-26] MEDS ORDERED: ONDANSETRON HCL 4 MG/2 ML VIAL IV ONE (06:00)
--- NOTE | 2017-07-26 06:12 | RADRPT ---
EXAM DATE/TIME: 07/26/2017 06:03 [facility] COMPARISON: No previous studies available for comparison. INDICATIONS : Right ankle pain and deformity from a twist and fall. MEDICAL HISTORY : None. SURGICAL HISTORY : None. ENCOUNTER: Initial ACUITY: 1 day PAIN SCORE: 0/10 LOCATION: Right foot FINDINGS: Three view examination of the right foot demonstrates no soft tissue swelling, dislocation, or fractu re. The tarsal bones appear intact. The interphalangeal and metatarsophalangeal joints are intact. The calcaneus is intact. Bony mineralization is normal. CONCLUSION: Unremarkable examination of the right foot. Chester Pressley MD on July 26, 2017 at 6:09 Board Certified Radiologist. This report was verified electronically.
[2017-07-26 06:13] LABS: BICARBONATE 26.3 MEQ/L (21.0-32.0); CALCIUM 8.7 MG/DL (8.5-10.1); CREATININE 0.76 MG/DL (0.50-1.00)
--- NOTE | 2017-07-26 06:14 | RADRPT ---
EXAM DATE/TIME: 07/26/2017 06:00 [facility] COMPARISON: No previous studies available for comparison. INDICATIONS : Right ankle pain and deformity from a twist and fall. MEDICAL HISTORY : None. SURGICAL HISTORY : None. ENCOUNTER: Initial ACUITY: 1 day PAIN SCORE: 10/10 LOCATION: Right ankle FINDINGS: Three view exam was performed of the right ankle. The bony structures are in normal alignment. No e vidence of fracture, dislocation, or soft tissue swelling. The ankle mortise is intact. No radiopaq ue foreign bodies are seen. Bony mineralization is normal. CONCLUSION: Unremarkable examination of the right ankle. Chester Pressley MD on July 26, 2017 at 6:10 Board Certified Radiologist. This report was verified electronically.
[2017-07-26] MEDS ORDERED: PROCHLORPERAZINE INJ 10 MG/2 ML VIAL IV PUSH ONE (06:45)
[2017-07-26] MEDS ORDERED: DICYCLOMINE HCL 20 MG/2 ML VIAL IM ONE (06:45)
--- NOTE | 2017-07-26 07:54 | PD ---
Data Data Last Documented VS Vital Signs Date Time Temp Pulse Resp B/P (MAP) Pulse Ox O2 Delivery O2 Flow Rate FiO2 07/26/17 07:58 70 17 106/58 (74) 100 Room Air 07/26/17 04:44 97.4 Orders Orders Complete Blood Count With Diff (07/26/17 05:21) Basic Metabolic Panel (Bmp) (07/26/17 05:21) Urinalysis - C+S If Indicated (07/26/17 05:21) Iv Access Insert/Monitor (07/26/17 05:21) Ecg Monitoring (07/26/17 05:21) Oximetry (07/26/17 05:21) Ed Urine Pregnancytest Poc (07/26/17 05:21) Ankle, Complete ([id number]) (07/26/17 05:21) Foot, Complete ([id number]) (07/26/17 05:21) Ice/Cold Pack (07/26/17 05:21) Acetaminophen (Tylenol) (07/26/17 05:45) Ondansetron Inj (Zofran Inj) (07/26/17 06:00) Sodium Chlor 0.9% 1000 Ml Inj (Ns 1000 M (07/26/17 06:00) Splint Or Brace Apply/Monitor (07/26/17 06:16) Dicyclomine Inj (Bentyl Inj) (07/26/17 06:45) Prochlorperazine Inj (Compazine Inj) (07/26/17 06:45) Morphine Inj (Morphine Inj) (07/26/17 08:00) Labs Laboratory Tests Test 07/26/17 05:25 07/26/17 07:20 White Blood Count 8.9 TH/MM3 Red Blood Count 4.78 MIL/MM3 Hemoglobin 12.8 GM/DL Hematocrit 38.5 % Mean Corpuscular Volume 80.5 FL Mean Corpuscular Hemoglobin 26.8 PG Mean Corpuscular Hemoglobin Concent 33.3 % Red Cell Distribution Width 14.4 % Platelet Count 384 TH/MM3 Mean Platelet Volume 8.3 FL Neutrophils (%) (Auto) 44.4 % Lymphocytes (%) (Auto) 47.9 % Monocytes (%) (Auto) 6.1 % Eosinophils (%) (Auto) 1.2 % Basophils (%) (Auto) 0.4 % Neutrophils # (Auto) 3.9 TH/MM3 Lymphocytes # (Auto) 4.3 TH/MM3 Monocytes # (Auto) 0.5 TH/MM3 Eosinophils # (Auto) 0.1 TH/MM3 Basophils # (Auto) 0.0 TH/MM3 CBC Comment DIFF FINAL Differential Comment Blood Urea Nitrogen 8 MG/DL Creatinine 0.76 MG/DL Random Glucose 172 MG/DL Calcium Level 8.7 MG/DL Sodium Level 140 MEQ/L Potassium Level 3.9 MEQ/L Chloride Level 107 MEQ/L Carbon Dioxide Level 26.3 MEQ/L Anion Gap 7 MEQ/L Estimat Glomerular Filtration Rate 111 ML/MIN Urine Color YELLOW Urine Turbidity HAZY Urine pH 6.0 Urine Specific [place] 1.031 Urine Protein TRACE mg/dL Urine Glucose (UA) 300 mg/dL Urine Ketones NEG mg/dL Urine Occult Blood NEG Urine Nitrite NEG Urine Bilirubin NEG Urine Urobilinogen 2.0 MG/DL Urine Leukocyte Esterase SMALL Urine RBC 4 /hpf Urine WBC 5 /hpf Urine Squamous Epithelial Cells 15 /hpf Urine Bacteria RARE /hpf Urine Mucus MANY /lpf Microscopic Urinalysis Comment CULT NOT INDICATED MDM Supervised Visit with GILES: No Narrative Course The patient was initially evaluated by the previous provider and signed out to me at the beginning of my shift pending UA and disposition. See her note for further details. Briefly this is a 26-year-old female who is here for evaluation of left-sided flank pain and left upper quadrant abdominal pain. She also complained of injuring her right ankle. Patient also reports having had nausea, vomiting, and diarrhea. She has been seen in the emergency department several times for similar type pains and has had CT abdomen and pelvis which have been unremarkable, last scan was in May of this year. She does have history of cholecystectomy. CBC and BMP are essentially unremarkable aside from a random glucose of 172. Patient was provided Tylenol and antiemetics from the previous provider, however the patient reports that she vomited up the Tylenol and is requesting morphine for her pain. I will give her 1 dose of 4 mg of IV morphine and will reassess. UA: Hazy, 300 glucose, small leukocyte esterase, 4 RBCs, 15 epithelial cells, rare bacteria, many mucus. This is not suggestive of UTI. The patient was made aware of all findings including glucose urea and BGL in the 180s. She was advised to follow-up with her primary care physician regarding these results. She was given 4 mg of IV morphine and reports feeling significantly improved and feels comfortable being discharged home with outpatient follow-up. She has had similar pain in the past and has had several negative CT scans of her abdomen and pelvis. At this point the risks of another CT scan outweigh the benefits as the patient is comfortable and her abdominal exam is benign. She states she will follow-up with her primary care physician tomorrow. She was advised on when to return to the emergency department. She verbalizes understanding and agreement with plan. Diagnosis Primary Impression: Abdominal pain Qualified Codes: R10.12 - Left upper quadrant pain Additional Impressions: Right ankle sprain Qualified Codes: S93.401A - Sprain of unspecified ligament of right ankle, initial encounter Nausea, vomiting, and diarrhea Left flank pain Glucosuria Referrals: Primary Care Physician 2 days Patient Instructions: General Instructions, Ankle Sprain (ED), Acute Nausea and Vomiting (ED), Acute Diarrhea (ED), Abdominal Pain (ED) Additional Instruction: Follow-up with your primary care physician this week. Return to the emergency department for worsening symptoms or any other concerns. Scripts Ondansetron (Zofran) 4 Mg Tab 4 MG PO Q6HR Y for NAUSEA OR VOMITING, #7 TAB 0 Refills Prov: Mirna Purdy MD 07/26/17 Disposition: 01 DISCHARGE HOME Condition: Stable Dariel Carson MD Jul 26, 2017 07:54
[2017-07-26 07:58] VITALS: BP 106/58; PULSE 70; RESP 17; O2SAT 100
[2017-07-26 07:58] LABS: BACTERIA, URINE RARE /hpf; BILIRUBIN, URINE NEG (NEG); BLOOD, URINE NEG (NEG); GLUCOSE,URINE 300 mg/dL (NEG); KETONE, URINE NEG (NEG); MUCUS URINE MANY /lpf (OCC); NITRITE,URINE NEG (NEG); SQUAMOUS EPITHELIAL CELL URINE 15 /hpf (0-5); URINE COLOR YELLOW (YELLW/STRAW); URINE LEUKOCYTE ESTERASE SMALL (NEG)
[2017-07-26] MEDS ORDERED: MORPHINE SULFATE 2 MG/ML SYRINGE IV PUSH ONE (08:00)
== END 2017-07-26 09:42 | disposition home or self-care (01) ==
LOC: NEPE 04:41
DX: R10.12 Left upper quadrant pain (principal); S93.401A Sprain of unspecified ligament of right ankle, initial encounter; R19.7 Diarrhea, unspecified; R11.2 Nausea with vomiting, unspecified; R81 Glycosuria; W01.0XXA Fall on same level from slipping, tripping and stumbling without subsequent striking against object, initial encounter; Y93.K1 Activity, walking an animal
CPT/HCPCS: 73610; 73630; 80048; 81001; 84703; 85025; 96361; 96372; 96374; 96375; 99284; J0500; J0780; J2270; J2405; J7030

== ENCOUNTER 2017-10-19 23:46 | Emergency (ER) | payer MEDICAID ==
[~2017-10-19 23:46] MED LIST changes: -DICY10 PO
[2017-10-19 23:51] VITALS: BP 145/86; PULSE 129; RESP 16; TEMP 98.2; O2SAT 95
[2017-10-20 00:16] VITALS: BP 155/92; PULSE 99; RESP 22; O2SAT 97
[2017-10-20] MEDS ORDERED: LACT10SO PO (00:18)
[2017-10-20] MEDS ORDERED: diphenhydrAMINE HCL 50 MG/ML VIAL IV PUSH ONE (00:30)
[2017-10-20] MEDS ORDERED: PROCHLORPERAZINE INJ 10 MG/2 ML VIAL IV PUSH ONE (00:30)
[2017-10-20] MEDS ORDERED: SODIUM CHLOR 0.9% 1000 ML INJ 1,000 ML IV ONE ×2 (00:30→02:00)
--- NOTE | 2017-10-20 00:32 | PD ---
HPI Chief Complaint: Abdominal Pain Time Seen by Provider: 23:56 Travel History International Travel<30 days: No Contact w/Intl Traveler<30days: No Traveled to known affect area: No History of Present Illness HPI The patient is a 27 year old female who presents to the [facility] emergency department with a history of difficulty moving her bowels since having this past week. She is postop day #5 today. The patient reports that she has not moved her bowels since the procedure other than small hard stools. She did call Dr. Castaneda regarding this and was given lactulose as a stool softener. She reports that she started this yesterday and took 1 dose. The patient reports that she was also given a prescription for Zofran, however she has not been able to fill the prescription yet. She reports that she has had nausea and vomiting 4-5 times today. She reports having generalized abdominal cramping associated with this. She reports that she was given a prescription for oxycodone for the pain, however she has not taken this since Wednesday as it made her sick to her stomach. The patient reports that the pain is increasing her anxiety. She reports that she is seeing a therapist for anxiety and is trying to do behavior modification techniques, however she is not currently on any medication. On review of systems otherwise, the patient denies having any known recent fevers, cough or congestion, neck pain, chest pain, shortness of breath, diarrhea, urinary symptoms, or neurologic symptoms. [facility] Past Medical History Narrative Medical The patient's past medical history is significant for recurrent abdominal pain, hemorrhoids, anxiety and depression, acid reflux, headaches. Anxiety: Yes Depression: Yes Cancer: No Cardiovascular Problems: No Diabetes: No Diminished Hearing: No Endocrine: No Gastrointestinal Disorders: Yes GERD: Yes Genitourinary: No Headaches: Yes Hypertension: No Immune Disorder: No Implanted Vascular Access Dvce: No Musculoskeletal: No Psychiatric: Yes Reproductive: Yes Immunizations Current: Yes Migraines: Yes Sickle Cell Disease: No Ulcer: Yes ?: Not : 4 Para: 1 Miscarriage: 2 : 1 Past Surgical History Narrative Surgical The patient's past surgical history is significant for cholecystectomy, appendectomy, hemorrhoidectomy. Abdominal Surgery: Yes (APPENDECTOMY) AICD: No Appendectomy: Yes Arteriovenous Shunt: No Cholecystectomy: Yes Insulin Pump: No Joint Replacement: No Pacemaker: No Other Surgery: Yes (HEMMORRHOIDS REMOVAL) Social History Alcohol Use: No Tobacco Use: No Substance Use: No Allergies-Medications (Allergen,Severity, Reaction): Coded Allergies: ketorolac (Verified Allergy, Intermediate, rash, 10/19/17) Reported Meds & Prescriptions Reported Meds & Active Scripts Active Zofran (Ondansetron HCl) 4 Mg Tab 4 Mg PO Q6HR PRN Reported Lactulose Liq (Lactulose) 10 Gm/15 Ml Soln 30 Ml PO Q6H PRN Review of Systems Except as stated in HPI: all other systems reviewed are Neg General / Constitutional: No: Fever Eyes: No: Visual changes HENT: No: Headaches Cardiovascular: No: Chest Pain or Discomfort Respiratory: No: Shortness of Breath Gastrointestinal: Positive: Nausea, Vomiting, Abdominal Pain, Constipation, Changes in Bowel Habits, No: Diarrhea, Hematemesis Genitourinary: No: Dysuria Musculoskeletal: No: Pain Skin: No Rash Neurologic: No: Weakness, Focal Abnormalities, Change in Mentation, Slurred Speech, Sensory Disturbance Psychiatric: Positive: Anxiety, No: Depression, Suicidal Ideations Endocrine: No: Polydipsia Hematologic/Lymphatic: No: Easy Bruising Physical Exam Narrative General: The patient is a well-developed well-nourished female in no acute distress. Head and Neck exam: Head is normocephalic atraumatic. Eyes: EOMI, pupils are equal round and reactive to light. Nose: Midline septum with pink mucous membranes Mouth: Dentition unremarkable. Moist mucus membranes. Posterior oropharynx is not erythematous. No tonsillar hypertrophy. Uvula midline. Airway patent. Neck: No palpable lymphadenopathy. No nuchal rigidity. No thyromegaly. Cardiovascular: Sinus tachycardia in the low 100 without murmurs, gallops, or rubs. No pulse deficit to the extremities on simultaneous auscultation and palpation of her radial artery. Lungs: Clear to auscultation bilaterally. No wheezes, rhonchi, or rales. Abdomen: Soft, without tenderness to palpation in all 4 quadrants of the abdomen. No guarding, rebound, or rigidity. Normal bowel sounds are audible. No tenderness on palpation of McBurney's point. Extremities: No clubbing, cyanosis, or edema. 2+ pulses in all 4 extremities. No calf tenderness on palpation. Back: No spinous process tenderness to palpation. No costovertebral angle tenderness to palpation. Neurologic Exam: Grossly nonfocal. Skin Exam: No rash noted. Intact skin that is warm and dry. Rectal exam: The patient's rectum was visually examined as the patient refused digital exam. She reports that yesterday she had a digital exam at [facility] when she was evaluated. Externally the patient has no signs of infection. There is minimal bloody mucus. No swelling noted. Data Data Last Documented VS Vital Signs Date Time Temp Pulse Resp B/P (MAP) Pulse Ox O2 Delivery O2 Flow Rate FiO2 10/20/17 00:16 99 22 155/92 (113) 97 Room Air 10/19/17 23:51 98.2 Orders Orders Complete Blood Count With Diff (10/20/17 00:16) Comprehensive Metabolic Panel (10/20/17 00:16) C-Reactive Protein (Crp) (10/20/17 00:16) Lipase (10/20/17 00:16) Urinalysis - C+S If Indicated (10/20/17 00:16) Magnesium (Mg) (10/20/17 00:16) Iv Access Insert/Monitor (10/20/17 00:16) Ecg Monitoring (10/20/17 00:16) Oximetry (10/20/17 00:16) Sodium Chlor 0.9% 1000 Ml Inj (Ns 1000 M (10/20/17 00:30) Prochlorperazine Inj (Compazine Inj) (10/20/17 00:30) Diphenhydramine Inj (Benadryl Inj) (10/20/17 00:30) Acetamin-Hydrocod 325-5 Mg (Morrison 5-325 (10/20/17 00:45) Ed Urine Pregnancytest Poc (10/20/17 00:34) Sodium Chlor 0.9% 1000 Ml Inj (Ns 1000 M (10/20/17 02:00) Acetamin-Hydrocod 325-5 Mg (Morrison 5-325 (10/20/17 03:00) Labs Laboratory Tests Test 10/20/17 00:20 10/20/17 01:15 White Blood Count 8.1 TH/MM3 Red Blood Count 4.96 MIL/MM3 Hemoglobin 13.3 GM/DL Hematocrit 40.2 % Mean Corpuscular Volume 81.2 FL Mean Corpuscular Hemoglobin 26.8 PG Mean Corpuscular Hemoglobin Concent 33.0 % Red Cell Distribution Width 13.7 % Platelet Count 382 TH/MM3 Mean Platelet Volume 8.1 FL Neutrophils (%) (Auto) 48.8 % Lymphocytes (%) (Auto) 43.3 % Monocytes (%) (Auto) 6.8 % Eosinophils (%) (Auto) 0.6 % Basophils (%) (Auto) 0.5 % Neutrophils # (Auto) 3.9 TH/MM3 Lymphocytes # (Auto) 3.5 TH/MM3 Monocytes # (Auto) 0.5 TH/MM3 Eosinophils # (Auto) 0.1 TH/MM3 Basophils # (Auto) 0.0 TH/MM3 CBC Comment DIFF FINAL Differential Comment Blood Urea Nitrogen 8 MG/DL Creatinine 0.86 MG/DL Random Glucose 167 MG/DL Total Protein 8.1 GM/DL Albumin 3.8 GM/DL Calcium Level 9.0 MG/DL Magnesium Level 2.0 MG/DL Alkaline Phosphatase 75 U/L Aspartate Amino Transf (AST/SGOT) 27 U/L Alanine Aminotransferase (ALT/SGPT) 55 U/L Total Bilirubin 0.5 MG/DL Sodium Level 140 MEQ/L Potassium Level 4.1 MEQ/L Chloride Level 106 MEQ/L Carbon Dioxide Level 24.5 MEQ/L Anion Gap 10 MEQ/L Estimat Glomerular Filtration Rate 96 ML/MIN C-Reactive Protein 0.72 MG/DL Lipase 98 U/L Urine Color YELLOW Urine Turbidity HAZY Urine pH 5.0 Urine Specific [place] 1.024 Urine Protein NEG mg/dL Urine Glucose (UA) NEG mg/dL Urine Ketones TRACE mg/dL Urine Occult Blood NEG Urine Nitrite NEG Urine Bilirubin NEG Urine Urobilinogen 4.0 OR GREATER mg/dL Urine Leukocyte Esterase NEG Urine RBC LESS THAN 1 /hpf Urine WBC 2 /hpf Urine Squamous Epithelial Cells 7 /hpf Urine Bacteria RARE /hpf Urine Mucus MANY /lpf Microscopic Urinalysis Comment CULT NOT INDICATED MDM Medical Decision Making Medical Screen Exam Complete: Yes Emergency Medical Condition: Yes Medical Record Reviewed: Yes Differential Diagnosis Constipation, versus anxiety, versus uncontrolled postoperative pain Narrative Course During the course of the patient's emergency department visit, the patient's history, examination, and differential diagnosis were reviewed with the patient. The patient was placed on a registered nurse cardiac with oximetry and frequent blood pressure monitoring. The patient had IV access obtained and blood work sent for analysis. The patient was initially provided with bolus, Compazine 5 mg IV for nausea, Benadryl 25 mg IV for anxiety, hydrocodone 1 tab p.o. x1. The patient's laboratory studies were reviewed and remarkable for a CBC that is unremarkable, CMP is remarkable for glucose of 167, ALT 55, C-reactive protein 0.72, lipase 98, urinalysis shows trace ketones for urobilinogen, rare bacteria , many mucus, culture not indicated. The patient was waiting for her laboratory studies to be completed, the patient moved her bowels. The patient reported having increased rectal pain, however she was happy that she finally was able to move her bowels a normal amount. The patient is instructed to continue on the lactulose that was previously prescribed by Dr. Castaneda for stool softening. The patient is encouraged to get the Zofran prescription that was prescribed by Dr. Castaneda. The patient is stable for discharge. The patient is resting comfortably and feels better, is alert and in no distress. The patient's results and examination findings were discussed with the patient. The repeat examination is unremarkable and benign. The history, exam, diagnostic testing, and current condition do not suggest any significant pathology to warrant further testing, continued ED treatment, admission, or surgical evaluation at this point. The vital signs have been stable. The patient does not have uncontrollable pain, intractable vomiting, or other significant symptoms. The patient's condition is stable and appropriate for discharge. The patient will pursue further outpatient evaluation with a primary care physician or other designated or consulting physician as indicated in the discharge instructions. The patient is instructed to report back to the emergency department immediately for reexamination in the mean time if she develops any new or worsening signs or symptoms. The patient expressed understanding and was agreeable with this plan. Diagnosis Primary Impression: Postoperative pain Additional Impression: Vomiting Qualified Codes: R11.2 - Nausea with vomiting, unspecified Referrals: Chester Castaneda MD 2 days Patient Instructions: Acute Nausea and Vomiting (ED), General Instructions Additional Instructions: Please get the prescription for Zofran filled that was previously prescribed by her colorectal surgeon. Continue lactulose as needed for stool softening. Med/Other Pt SpecificInfo: No Change to Meds Disposition: 01 DISCHARGE HOME Condition: Stable Mirna Purdy MD Oct 20, 2017 00:32
[2017-10-20 00:40] LABS: AUTOMATED NEUTROPHIL # 3.9 TH/MM3 (1.8-7.7); BASOPHIL % 0.5 % (0.0-2.0); EOSINOPHIL # 0.1 TH/MM3 (0-0.4); EOSINOPHIL % 0.6 % (0.0-4.0); HEMATOCRIT 40.2 % (35.0-46.0); HEMOGLOBIN 13.3 GM/DL (11.6-15.3); LYMPH % 43.3 % (9.0-44.0); LYMPHOCYTE # 3.5 TH/MM3 (1.0-4.8); MEAN CELL VOLUME 81.2 FL (80.0-100.0); MEAN CORPUSCULAR HEMOGLOBIN 26.8 PG (27.0-34.0); MEAN PLATELET VOLUME 8.1 FL (7.0-11.0); MONO % 6.8 % (0.0-8.0); MONOCYTE # 0.5 TH/MM3 (0-0.9); NEUT % 48.8 % (16.0-70.0); PLATELET COUNT 382 TH/MM3 (150-450); RED BLOOD COUNT 4.96 MIL/MM3 (4.00-5.30); RED CELL DISTRIBUTION WIDTH 13.7 % (11.6-17.2); WHITE BLOOD COUNT 8.1 TH/MM3 (4.0-11.0)
[2017-10-20] MEDS ORDERED: ACETAMINOPHEN/HYDROcodone 325 MG/5 MG TAB PO ONE ×2 (00:45→03:00)
[2017-10-20 00:54] LABS: ALBUMIN 3.8 GM/DL (3.4-5.0); ALT (GPT) 55 U/L (10-53); AST (GOT) 27 U/L (15-37); BICARBONATE 24.5 MEQ/L (21.0-32.0); BLOOD UREA NITROGEN 8 MG/DL (7-18); CHLORIDE 106 MEQ/L (98-107); CREATININE 0.86 MG/DL (0.50-1.00); GLOMERULAR FILTRATION RATE 96 ML/MIN (>89); GLUCOSE,RANDOM 167 MG/DL (74-106); SODIUM (NA) 140 MEQ/L (136-145)
[2017-10-20 00:57] LABS: ALKALINE PHOSPHATASE 75 U/L (45-117); C-REACTIVE PROTEIN 0.72 MG/DL (0.00-0.30); TOTAL BILIRUBIN ADULT 0.5 MG/DL (0.2-1.0); TOTAL PROTEIN 8.1 GM/DL (6.4-8.2)
[2017-10-20 01:34] LABS: BACTERIA, URINE RARE /hpf; BILIRUBIN, URINE NEG (NEG); BLOOD, URINE NEG (NEG); GLUCOSE,URINE NEG (NEG); KETONE, URINE TRACE mg/dL (NEG); MUCUS URINE MANY /lpf (OCC); NITRITE,URINE NEG (NEG); SQUAMOUS EPITHELIAL CELL URINE 7 /hpf (0-5); URINE COLOR YELLOW (YELLW/STRAW); URINE LEUKOCYTE ESTERASE NEG (NEG)
[2017-10-20 03:04] VITALS: BP 120/80
== END 2017-10-20 03:33 | disposition home or self-care (01) ==
LOC: NEPC 23:46
DX: G89.18 Other acute postprocedural pain (principal); R11.2 Nausea with vomiting, unspecified; R10.84 Generalized abdominal pain; K59.00 Constipation, unspecified; F41.9 Anxiety disorder, unspecified; F32.9 Major depressive disorder, single episode, unspecified; K21.9 Gastro-esophageal reflux disease without esophagitis; Z88.8 Allergy status to other drugs, medicaments and biological substances; Z79.899 Other long term (current) drug therapy
CPT/HCPCS: 80053; 81001; 83690; 83735; 84703; 85025; 86140; 96361; 96374; 96375; 99284; J0780; J1200; J7030